=== PATIENT | male | born 1950 | race African-American/Black ===

== ENCOUNTER 2017-01-11 10:18 | Inpatient (IN) | payer MEDICAID ==
[2017-01-11] VITALS (7 sets, daily range): BP systolic 127–171; BP diastolic 50–96
[~2017-01-11] VITALS: Ht 182.9 cm; Wt 90.7 kg
[2017-01-11] MEDS ORDERED: B COMPLEX-FOLI1 EACH ORAL (10:43)
[2017-01-11] MEDS ORDERED: TRAZODONE HCL50 MG ORAL (10:43)
[2017-01-11] MEDS ORDERED: LEVETIRACETAM500 MG ORAL (10:43)
[2017-01-11] MEDS ORDERED: NEPHROVITE1 TAB ORAL (10:43)
[2017-01-11] MEDS ORDERED: BENAZEPRIL HCL40 MG ORAL (10:43)
[2017-01-11] MEDS ORDERED: SENSIPAR30 MG ORAL (10:43)
[2017-01-11] MEDS ORDERED: NAMENDA10 MG ORAL (10:43)
[2017-01-11] MEDS ORDERED: DOCUSATE SODIU100 MG ORAL (10:43)
[2017-01-11] MEDS ORDERED: AMLODIPINE BESY10 MG ORAL (10:43)
[2017-01-11] MEDS ORDERED: PANTOPRAZOLE SO40 MG ORAL (10:43)
[2017-01-11] MEDS ORDERED: HYDRALAZINE HCL50 MG ORAL (10:43)
[2017-01-11] MEDS ORDERED: ASPIR-LOW81 MG ORAL (10:43)
[2017-01-11] MEDS ORDERED: NORMODYNE200 MG ORAL (10:43)
[2017-01-11] MEDS ORDERED: DEPAKOTE ER500 MG ORAL (10:43)
[2017-01-11] MEDS ORDERED: LISINOPRIL40 MG ORAL (10:43)
[2017-01-11] MEDS ORDERED: Heparin 2000 units/Ns 1000ml IV ONE (11:15)
[2017-01-11] MEDS ORDERED: Lidocaine 1% 10mg/ml/Epi 0.005mg/ml 30ml vial INJ ONE (11:15)
[2017-01-11 11:29] LABS: BASOPHILS % (AUTO) 0.9 % (0.0-2.0); LYMPHOCYTES % (AUTO) 5.3 % (20.0-45.0); MEAN CORPUSCULAR HEMOGLOBIN 29.6 PG (27.0-31.0); MEAN CORPUSCULAR HGB CONC 32.6 G/DL (32.0-36.0); MEAN CORPUSCULAR VOLUME 91 FL (80-99); MEAN PLATELET VOLUME 6.7 FL (6.5-10.1); MONOCYTES % (AUTO) 13.8 % (1.0-10.0); PLATELET COUNT 211 K/UL (150-450); RED BLOOD COUNT 3.41 M/UL (4.70-6.10); RED CELL DISTRIBUTION WIDTH 15.2 % (11.6-14.8); WHITE BLOOD COUNT 8.4 K/UL (4.8-10.8)
[2017-01-11 11:30] LABS: APPEARANCE,URINE TURBID; KETONES,URINE NEGATIVE (NEGATIVE); LEUKOCYTE ESTERASE ,URINE 2+ (NEGATIVE); NITRITE,URINE NEGATIVE (NEGATIVE); PH,URINE 6 (4.5-8.0); PROTEIN,URINE 3+ (NEGATIVE); UROBILINOGEN,URINE 1 MG/DL (0.0-1.0)
[2017-01-11 11:37] LABS: INR 1.2 (0.9-1.1); PROTHROMBIN TIME 12.7 SEC (9.30-11.50)
[2017-01-11 11:50] LABS: BACTERIA,URINE MANY /HPF; SQUAMOUS EPITHELIAL CELL,UR FEW /LPF (NONE/OCC)
[2017-01-11] MEDS ORDERED: Lidocaine 1% Plain 30 ml INJ ONE (12:00)
[2017-01-11 12:02] LABS: ALBUMIN/GLOBULIN RATIO 0.9 (1.0-2.7); CREATININE 18.1 mg/dL (0.7-1.2); GLOMERULAR FILTRATION RATE 3.3 mL/min (>60); POTASSIUM 7.3 mEQ/L (3.4-4.9); TOTAL PROTEIN 7.1 g/dL (6.6-8.7)
[2017-01-11 12:21] LABS: TROPONIN I < 0.30 ng/mL (<=0.30)
[2017-01-11] MEDS ORDERED: Albuterol ud Inhalation HHN ONE (12:30)
[2017-01-11] MEDS ORDERED: Sodium Polystyrene Sulfonate 15gm Powder ORAL ONE ×2 (12:30→16:00)
[2017-01-11] MEDS ORDERED: cefTRIAXone 1 GM in NS 55 ML IVPB ONE (13:00)
--- NOTE | 2017-01-11 13:38 | Diagnostic Imaging Report ---
Indication: COUGH Technique: One view of the chest Comparison: 05/08/2012 Findings: There is infiltrate at the right lung base. The left lung and pleural spaces are clear. Heart size is upper limits normal. Impression: Right basilar infiltrate , likely pneumonia
[2017-01-11] MEDS ORDERED: NS 55 ML IV ONE (13:43)
--- NOTE | 2017-01-11 14:14 | Emergency Room Report ---
History of Present Illness General Chief Complaint: Altered Level of Consciousness Source: Family Member, Medical Record Present Illness HPI This patient is accompanied by his . The she has a history of end-stage renal disease and is dialysis dependent. He was admitted to [facility] and was discharged on the fifth of this month. He has not been to dialysis since being discharged. The states that this is because there was no transportation to the dialysis clinic. She states that she is concerned about him because he has had a wet harsh cough and breathing. She is also concerned that he has not been as alert as usual. There's been no fever or chills. There's been no sputum production. There has been no chest pain. There is no other complaints. Allergies: Coded Allergies: No Known Allergies (Verified , 03/31/11) Patient History Past Medical History: see triage record, DM, HTN, dementia, renal disease, dialysis Social History: Denies: alcohol use, drug use, smoking Reviewed Nursing Documentation: PMH: Agreed, PSxH: Agreed Nursing Documentation-PMH Past Medical History: No History, Except For Hx Hypertension: Yes Hx Diabetes: Yes Hx Dialysis: Yes - M,W,F Hx Neurological Problems: Yes - Dementia Hx Cerebrovascular Accident: Yes Hx Seizures: Yes Review of Systems All Other Systems: negative except mentioned in HPI Physical Exam Vital Signs Date Time Temp Pulse Resp B/P Pulse Ox O2 Delivery O2 Flow Rate FiO2 01/11/17 10:19 94 24 189/79 98 Room Air 01/11/17 11:00 97.7 01/11/17 12:51 21 Sp02 EP Interpretation: reviewed, normal General Appearance: no apparent distress, GCS 15, non-toxic Head: normocephalic, atraumatic Eyes: bilateral eye PERRL, bilateral eye normal inspection ENT: hearing grossly normal, normal pharynx, no angioedema Neck: full range of motion, supple/symm/no masses Respiratory: chest non-tender, no respiratory distress, no retraction, no accessory muscle use, rhonchi Cardiovascular #1: regular rate, rhythm, no edema Gastrointestinal: normal bowel sounds, non tender, soft, non-distended, no guarding, no rebound Rectal: deferred Musculoskeletal: non-tender Neurologic: alert, responsive Skin: normal color, no rash, warm/dry, well hydrated Medical Decision Making Diagnostic Impression: Primary Impression: Encephalopathy Additional Impressions: Uremia Hyperkalemia Dialysis patient Pneumonia UTI (urinary tract infection) ER Course This patient missed dialysis for one week of presents with a renal encephalopathy. He is uremic and hyperkalemic. He was given aggressive intervention for hyperkalemia given his EKG changes his PT was. He is given albuterol, insulin and glucose, Kayexalate. He also is admitted for emergency dialysis which will be definitive treatment for him. He has some findings on chest x-ray that could be a pneumonia. Therefore, I did give this patient broad -spectrum antibiotics. Also his urinalysis shows a urinary tract infection. Patient is admitted to the ICU step down. This patient is critically ill. This patient required complex medical decision- making, aggressive intervention, extensive laboratory workup and monitoring. Critical care time: 40 minutes. Labs Test 01/11/17 10:54 01/11/17 11:05 White Blood Count 8.4 K/UL (4.8-10.8) Red Blood Count 3.41 M/UL (4.70-6.10) Hemoglobin 10.1 G/DL (14.2-18.0) Hematocrit 31.0 % (42.0-52.0) Mean Corpuscular Volume 91 FL (80-99) Mean Corpuscular Hemoglobin 29.6 PG (27.0-31.0) Mean Corpuscular Hemoglobin Concent 32.6 G/DL (32.0-36.0) Red Cell Distribution Width 15.2 % (11.6-14.8) Platelet Count 211 K/UL (150-450) Mean Platelet Volume 6.7 FL (6.5-10.1) Neutrophils (%) (Auto) 80.0 % (45.0-75.0) Lymphocytes (%) (Auto) 5.3 % (20.0-45.0) Monocytes (%) (Auto) 13.8 % (1.0-10.0) Eosinophils (%) (Auto) 0.0 % (0.0-3.0) Basophils (%) (Auto) 0.9 % (0.0-2.0) Prothrombin Time 12.7 SEC (9.30-11.50) Prothromb Time International Ratio 1.2 (0.9-1.1) Activated Partial Thromboplast Time 33 SEC (23-33) Sodium Level 140 mEQ/L (135-145) Potassium Level 7.3 mEQ/L (3.4-4.9) Chloride Level 91 mEQ/L (98-107) Carbon Dioxide Level 15 mEQ/L (20-30) Anion Gap 34 (5-15) Blood Urea Nitrogen 145 mg/dL (7-23) Creatinine 18.1 mg/dL (0.7-1.2) Estimat Glomerular Filtration Rate 3.3 mL/min (>60) Glucose Level 74 mg/dL (74-106) Calcium Level 9.0 mg/dL (8.6-10.2) Total Bilirubin 0.9 mg/dL (0.0-1.2) Aspartate Amino Transf (AST/SGOT) 26 U/L (5-40) Alanine Aminotransferase (ALT/SGPT) 7 U/L (3-41) Alkaline Phosphatase 76 U/L (40-129) Ammonia 80 umol/L (16-60) Troponin I < 0.30 ng/mL (<=0.30) Total Protein 7.1 g/dL (6.6-8.7) Albumin 3.5 g/dL (3.5-5.2) Globulin 3.6 g/dL Albumin/Globulin Ratio 0.9 (1.0-2.7) Urine Color Yellow Urine Appearance Turbid Urine pH 6 (4.5-8.0) Urine Specific [place] 1.015 (1.005-1.035) Urine Protein 3+ (NEGATIVE) Urine Glucose (UA) Negative (NEGATIVE) Urine Ketones Negative (NEGATIVE) Urine Occult Blood 4+ (NEGATIVE) Urine Nitrite Negative (NEGATIVE) Urine Bilirubin Negative (NEGATIVE) Urine Urobilinogen 1 MG/DL (0.0-1.0) Urine Leukocyte Esterase 2+ (NEGATIVE) Urine RBC 2-4 /HPF (0 - 0) Urine WBC 10-15 /HPF (0 - 0) Urine Squamous Epithelial Cells Few /LPF (NONE/OCC) Urine Bacteria Many /HPF (NONE) EKG Diagnostic Results Rate: normal Rhythm: NSR Other Impression Peaked T-waves. RBBB Rhythm Strip Diag. Results EP Interpretation: yes Rate: 80's Rhythm: NSR, no PVC's, no ectopy Chest X-Ray Diagnostic Results EP Interpretation: Yes Findings: no effusion, no pneumothorax Number of Views: 1 Other Impression R. LL opacity. Last Vital Signs Date Time Temp Pulse Resp B/P Pulse Ox O2 Delivery O2 Flow Rate FiO2 01/11/17 14:03 97.8 80 21 142/96 97 Room Air 01/11/17 12:59 21 Disposition: ADMITTED INPATIENT Condition: Critical Referrals: [facility],REFERRING (PCP) RAFFAELE FRAIRE D.O. Jan 11, 2017 14:14
[2017-01-11] MEDS ORDERED: DuoNeb 0.5-3(2.5)mg/3ml neb HHN PRN (14:45)
[2017-01-11] MEDS ORDERED: Morphine Sulfate 2mg/ml Inj IVP PRN (14:45)
[2017-01-11] MEDS ORDERED: Calcium Gluconate 1gm/10ml vial IVP ONE (14:45)
[2017-01-11] MEDS ORDERED: Mylanta II UD 30ml ORAL PRN (14:45)
[2017-01-11] MEDS ORDERED: Calcium Gluconate 10% 1 GM in NS 110 ML IVP ONE (16:00)
[2017-01-11] MEDS ORDERED: Miralax 17gm pkt ORAL PRN (21:00)
[2017-01-11] MEDS: Depakote ER 500mg tab ORAL SCH (21:00)
[2017-01-11] MEDS: TraZODone 50mg tab ORAL SCH (21:00)
[2017-01-11] MEDS: Labetalol 200mg tab ORAL SCH (21:00)
[2017-01-11] MEDS ORDERED: Zolpidem 5mg tab ORAL PRN (21:00)
[2017-01-11] MEDS: Heparin 5000 units/ml inj SUBQ SCH (21:50)
--- NOTE | 2017-01-11 22:37 | Consultation ---
DATE OF CONSULTATION: 01/11/2017 NEPHROLOGY CONSULTATION CONSULTING PHYSICIAN: Tyler Soares M.D. REFERRING PHYSICIAN: Cortney Werner M.D. REASON FOR CONSULTATION: End-stage renal disease, requiring hemodialysis. HISTORY OF PRESENT ILLNESS: This is an elderly male, who was admitted today with change in mental status. Dr. Denny was asked to see in Nephrology consultation because the patient has been on dialysis. His potassium was 7.3. I called the dialysis nurse urgently and the patient is about to be started on dialysis now. The patient is a very poor historian. History is obtained from the chart. PAST MEDICAL HISTORY: Includes a history of hypertension and diabetes and also history of dementia, CVA and seizures. MEDICATIONS: Reviewed. SOCIAL HISTORY: Unobtainable. REVIEW OF SYSTEMS: Unobtainable. PHYSICAL EXAMINATION: GENERAL: The patient is an elderly male, in no acute distress. VITAL SIGNS: Blood pressure 142/96, pulse 80, temperature 97.8 degrees, and respiratory rate 21. HEENT: Pale conjunctivae. Anicteric sclerae. NECK: Supple. LUNGS: Bilateral rhonchi. HEART: S1 and S2 without murmurs or rubs. ABDOMEN: Soft and nontender. EXTREMITIES: No cyanosis or edema. LABORATORY FINDINGS: The chemistry panel shows a serum sodium 140, potassium 4.3, chloride 91, CO2 15, BUN 145, and creatinine 2.1. BS is 80. UA shows 10 to 15 WBCs per high-power field. CBC shows a WBC of 8.4, hematocrit 31, hemoglobin 10.1, and platelets 200,000. ASSESSMENT: This is an elderly male, who was admitted with change in mental status. The patient has severe hyperkalemia in the presence of end-stage renal disease. PLAN: The patient will be dialyzed with 0 potassium bath. Case was discussed with dialysis nurse. The laboratories will be followed and the patient will be seen by Dr. Denny tomorrow. Thank you very much for this consultation. Tyler Soares M.D. DR: SINDY JOB#: [id number] CC: JAMES
--- NOTE | 2017-01-11 22:37 | Consultation ---
Consult Note Consult Note Renal consult dictated # [id number] GELACIO MENDIETA Jan 11, 2017 22:37
[2017-01-11] MEDS: HydrALAZINE 50mg tab ORAL SCH (23:15)
[2017-01-12] VITALS (7 sets, daily range): BP systolic 119–161; BP diastolic 51–76
[2017-01-12 05:06] LABS: BASOPHILS % (AUTO) 1.4 % (0.0-2.0); LYMPHOCYTES % (AUTO) 7.5 % (20.0-45.0); MEAN CORPUSCULAR HGB CONC 31.3 G/DL (32.0-36.0); MEAN CORPUSCULAR VOLUME 93 FL (80-99); MEAN PLATELET VOLUME 7.2 FL (6.5-10.1); MONOCYTES % (AUTO) 16.7 % (1.0-10.0); NEUTROPHILS % (AUTO) 74.5 % (45.0-75.0); PLATELET COUNT 213 K/UL (150-450); RED BLOOD COUNT 3.37 M/UL (4.70-6.10); RED CELL DISTRIBUTION WIDTH 14.9 % (11.6-14.8); WHITE BLOOD COUNT 11.2 K/UL (4.8-10.8)
[2017-01-12 05:28] LABS: ALBUMIN/GLOBULIN RATIO 0.7 (1.0-2.7); CALCIUM 9.4 mg/dL (8.6-10.2); CREATININE 11.7 mg/dL (0.7-1.2); GLOMERULAR FILTRATION RATE 5.3 mL/min (>60); POTASSIUM 4.4 mEQ/L (3.4-4.9); TOTAL PROTEIN 7.7 g/dL (6.6-8.7)
[2017-01-12] MEDS: HydrALAZINE 50mg tab ORAL SCH ×3 (05:34→22:44)
[2017-01-12 05:39] LABS: THYROID STIMULATING HORMONE 1.5 uIU/mL (0.300-4.500)
[2017-01-12 05:55] LABS: HEMOGLOBIN A1C 4.5 % (< 6.0)
[2017-01-12] MEDS ORDERED: Sensipar 30mg Tab ORAL SCH (09:00)
[2017-01-12] MEDS ORDERED: Aspirin EC 81mg tab ORAL SCH (09:00)
[2017-01-12] MEDS: Depakote ER 500mg tab ORAL SCH ×2 (09:00→21:17)
[2017-01-12] MEDS: levETIRAcetam 500mg/5ml Liquid NG SCH ×2 (10:20→21:15)
[2017-01-12] MEDS: Aspirin Baby 81mg NG SCH (10:20)
[2017-01-12] MEDS: Heparin 5000 units/ml inj SUBQ SCH ×2 (10:22→21:18)
--- NOTE | 2017-01-12 10:27 | General Progress Note ---
Assessment/Plan Status: stable Status Narrative dialysed 01/11 Assessment/Plan status: ESRD next HD 08/15 HyperKalemia- resolved after HD HTN DM Dementia CVA Sz disorder Plan; HD in am- Subjective ROS Limited/Unobtainable: No Constitutional: Reports: malaise Allergies: Coded Allergies: No Known Allergies (Verified , 03/31/11) Objective Last 24 Hour Vital Signs Date Time Temp Pulse Resp B/P Pulse Ox O2 Delivery O2 Flow Rate FiO2 01/12/17 08:17 91 18 Room Air 96 01/12/17 08:00 97.1 78 20 145/58 98 Room Air 01/12/17 05:34 136/57 01/12/17 04:00 77 01/12/17 04:00 97.4 77 20 150/56 98 01/12/17 00:00 97.7 87 20 161/76 95 Room Air 01/12/17 00:00 83 01/11/17 23:15 162/51 01/11/17 21:00 82 140/51 01/11/17 20:15 Room Air 01/11/17 20:00 98.4 84 20 127/70 96 01/11/17 19:37 86 18 Room Air 95 01/11/17 17:10 Room Air 01/11/17 16:00 74 01/11/17 15:27 77 25 150/59 99 Room Air 01/11/17 15:08 98.2 81 21 146/92 98 Room Air 21 01/11/17 14:03 97.8 80 21 142/96 97 Room Air 01/11/17 13:10 97.7 84 22 162/50 97 Room Air 01/11/17 12:59 133 18 98 21 01/11/17 12:51 21 01/11/17 12:51 129 16 Room Air 97 01/11/17 12:51 129 16 97 Room Air 21 01/11/17 12:30 97.7 162 21 162/70 98 Room Air 01/11/17 11:00 97.7 86 26 170/83 97 Room Air 01/11/17 10:36 87 24 171/73 97 Room Air Intake and Output 01/11/17 01/12/17 19:00 07:00 Intake Total 60 ml Output Total 80 ml 3300 ml Balance -80 ml -3240 ml Intake Other 60 ml Output Urine Total 80 ml Hemodialysis UF 3300 ml Laboratory Tests 01/11/17 10:54: White Blood Count 8.4, Red Blood Count 3.41L, Hemoglobin 10.1L, Hematocrit 31.0L , Mean Corpuscular Volume 91, Mean Corpuscular Hemoglobin 29.6, Mean Corpuscular Hemoglobin Concent 32.6, Red Cell Distribution Width 15.2H, Platelet Count 211, Mean Platelet Volume 6.7, Neutrophils (%) (Auto) 80.0H, Lymphocytes (%) (Auto) 5.3L, Monocytes (%) (Auto) 13.8H, Eosinophils (%) (Auto) 0.0, Basophils (%) (Auto) 0.9, Prothrombin Time 12.7H, Prothromb Time International Ratio 1.2H, Activated Partial Thromboplast Time 33, Sodium Level 140, Potassium Level 7.3*H, Chloride Level 91L, Carbon Dioxide Level 15L, Anion Gap 34H, Blood Urea Nitrogen 145H, Creatinine 18.1H, Estimat Glomerular Filtration Rate 3.3, Glucose Level 74, Calcium Level 9.0, Total Bilirubin 0.9, Aspartate Amino Transf (AST/SGOT) 26, Alanine Aminotransferase (ALT/SGPT) 7, Alkaline Phosphatase 76, Ammonia 80H, Troponin I < 0.30, Total Protein 7.1, Albumin 3.5, Globulin 3.6, Albumin/Globulin Ratio 0.9L 01/11/17 11:05: Urine Color Yellow, Urine Appearance Turbid, Urine pH 6, Urine Specific [place] 1.015, Urine Protein 3+H, Urine Glucose (UA) Negative, Urine Ketones Negative, Urine Occult Blood 4+H, Urine Nitrite Negative, Urine Bilirubin Negative, Urine Urobilinogen 1H, Urine Leukocyte Esterase 2+H, Urine RBC 2-4H, Urine WBC 10-15H , Urine Squamous Epithelial Cells Few, Urine Bacteria ManyH 01/12/17 03:35: White Blood Count 11.2H, Red Blood Count 3.37L, Hemoglobin 9.8L, Hematocrit 31.3L, Mean Corpuscular Volume 93, Mean Corpuscular Hemoglobin 29.0, Mean Corpuscular Hemoglobin Concent 31.3L, Red Cell Distribution Width 14.9H, Platelet Count 213, Mean Platelet Volume 7.2, Neutrophils (%) (Auto) 74.5, Lymphocytes (%) (Auto) 7.5L, Monocytes (%) (Auto) 16.7H, Eosinophils (%) (Auto) 0.0, Basophils (%) (Auto) 1.4, Sodium Level 143, Potassium Level 4.4, Chloride Level 92L, Carbon Dioxide Level 23, Anion Gap 28H, Blood Urea Nitrogen 99#H, Creatinine 11.7H, Estimat Glomerular Filtration Rate 5.3, Glucose Level 116H, Calcium Level 9.4, Total Bilirubin 0.7, Aspartate Amino Transf (AST/SGOT) 30, Alanine Aminotransferase (ALT/SGPT) 9, Alkaline Phosphatase 102, Total Protein 7.7, Albumin 3.3L, Globulin 4.4, Albumin/Globulin Ratio 0.7L, Hemoglobin A1c 4.5 , Thyroid Stimulating Hormone (TSH) 1.500 Height (Feet): 6 Height (Inches): 0.00 Weight (Pounds): 200 General Appearance: no apparent distress Cardiovascular: normal rate Respiratory/Chest: lungs clear Abdomen: soft SHILOH CABRAL Jan 12, 2017 10:27
--- NOTE | 2017-01-12 10:41 | Diagnostic Imaging Report ---
Indication: Post nasogastric tube placement Technique: Supine view of the abdomen Comparison: none Findings: There is a nasogastric tube in place, tip of which projects at level of the gastric antrum/body junction, in satisfactory position. Small bowel loops are gas-filled, somewhat prominent. Surgical hardware is seen in the right groin region. Impression: Satisfactory position of nasogastric tube Other findings as described This agrees with the preliminary interpretation provided overnight by Dr. Solis
[2017-01-12] MEDS: Labetalol 200mg tab ORAL SCH ×2 (11:11→21:00)
--- NOTE | 2017-01-12 11:34 | History and Physical ---
History of Present Illness General Date patient seen: Jan 11, 2017 Reason for Hospitalization: Altered Level of Consciousness Present Illness HPI 66 year old male with history of end-stage renal disease and is dialysis dependent. He has not been to dialysis for a few weeks since there was no transportation to the dialysis clinic. He had a wet harsh cough and breathing. He has not been as alert as usual. He is admitted to [facility] because of K of > 7. Pt is awake, seems comfortable but doesn't answer to questions. Allergies: Coded Allergies: No Known Allergies (Verified , 03/31/11) Medication History Scheduled Amlodipine Besylate* (Amlodipine Besylate*), 10 MG ORAL DAILY, (Reported) Aspirin* (Aspir-Low*), 81 MG ORAL DAILY, (Reported) Benazepril Hcl* (Benazepril Hcl*), 40 MG ORAL DAILY, (Reported) Cinacalcet* (Sensipar*), 30 MG ORAL DAILY, (Reported) Cyanocobalamin/Fa/Pyridoxine (B Complex-Folic Acid Tablet), 1 TAB ORAL DAILY, ( Reported) Divalproex Sodium* (Depakote Er*), 500 MG ORAL EVERY 12 HOURS, (Reported) Docusate Sodium* (Docusate Sodium*), 100 MG ORAL THREE TIMES A DAY, (Reported) Hydralazine Hcl* (Hydralazine Hcl*), 50 MG ORAL EVERY 8 HOURS, (Reported) Labetalol HCl (Labetalol HCl), 200 MG ORAL EVERY 12 HOURS, (Reported) Levetiracetam* (Levetiracetam*), 500 MG ORAL TWICE A DAY, (Reported) Lisinopril* (Lisinopril*), 40 MG ORAL DAILY, (Reported) Memantine Hcl* (Namenda*), 10 MG ORAL DAILY, (Reported) Pantoprazole* (Pantoprazole*), 40 MG ORAL DAILY, (Reported) Trazodone Hcl* (Desyrel*), 50 MG ORAL BEDTIME, (Reported) Vitamin B Cmplx/Vit C/Folic AC (Nephro-Velma Tablet), 1 TAB ORAL DAILY, (Reported ) Patient History Healthcare decision maker Resuscitation status Full Code Advanced Directive on File Past Medical/Surgical History Past Medical/Surgical History: (1) HTN (hypertension) (2) Diabetes (3) Dialysis patient Review of Systems All Other Systems: negative except mentioned in HPI Physical Exam General Appearance: WD/WN, no apparent distress Lines, tubes and drains: peripheral, central line HEENT: normocephalic, atraumatic Neck: non-tender, normal alignment Respiratory/Chest: chest wall non-tender, lungs clear Breasts: no masses Cardiovascular/Chest: normal rate Abdomen: normal bowel sounds Genitourinary/Rectal: normal genital exam Last 24 Hour Vital Signs Date Time Temp Pulse Resp B/P Pulse Ox O2 Delivery O2 Flow Rate FiO2 01/12/17 11:11 91 145/58 01/12/17 10:20 91 145/58 01/12/17 08:17 91 18 Room Air 96 01/12/17 08:00 97.1 78 20 145/58 98 Room Air 01/12/17 05:34 136/57 01/12/17 04:00 77 01/12/17 04:00 97.4 77 20 150/56 98 01/12/17 00:00 97.7 87 20 161/76 95 Room Air 01/12/17 00:00 83 01/11/17 23:15 162/51 01/11/17 21:00 82 140/51 01/11/17 20:15 Room Air 01/11/17 20:00 98.4 84 20 127/70 96 01/11/17 19:37 86 18 Room Air 95 01/11/17 17:10 Room Air 01/11/17 16:00 74 01/11/17 15:27 77 25 150/59 99 Room Air 01/11/17 15:08 98.2 81 21 146/92 98 Room Air 21 01/11/17 14:03 97.8 80 21 142/96 97 Room Air 01/11/17 13:10 97.7 84 22 162/50 97 Room Air 01/11/17 12:59 133 18 98 21 01/11/17 12:51 21 01/11/17 12:51 129 16 Room Air 97 01/11/17 12:51 129 16 97 Room Air 21 01/11/17 12:30 97.7 162 21 162/70 98 Room Air Intake and Output 01/11/17 01/12/17 18:59 06:59 Intake Total 60 ml Output Total 80 ml 3300 ml Balance -80 ml -3240 ml Intake Other 60 ml Output Urine Total 80 ml Hemodialysis UF 3300 ml Laboratory Tests Test 01/12/17 03:35 01/12/17 05:28 White Blood Count 11.2 K/UL (4.8-10.8) H Red Blood Count 3.37 M/UL (4.70-6.10) L Hemoglobin 9.8 G/DL (14.2-18.0) L Hematocrit 31.3 % (42.0-52.0) L Mean Corpuscular Volume 93 FL (80-99) Mean Corpuscular Hemoglobin 29.0 PG (27.0-31.0) Mean Corpuscular Hemoglobin Concent 31.3 G/DL (32.0-36.0) L Red Cell Distribution Width 14.9 % (11.6-14.8) H Platelet Count 213 K/UL (150-450) Mean Platelet Volume 7.2 FL (6.5-10.1) Neutrophils (%) (Auto) 74.5 % (45.0-75.0) Lymphocytes (%) (Auto) 7.5 % (20.0-45.0) L Monocytes (%) (Auto) 16.7 % (1.0-10.0) H Eosinophils (%) (Auto) 0.0 % (0.0-3.0) Basophils (%) (Auto) 1.4 % (0.0-2.0) Sodium Level 143 mEQ/L (135-145) Potassium Level 4.4 mEQ/L (3.4-4.9) Chloride Level 92 mEQ/L (98-107) L Carbon Dioxide Level 23 mEQ/L (20-30) Anion Gap 28 (5-15) H Blood Urea Nitrogen 99 mg/dL (7-23) #H Creatinine 11.7 mg/dL (0.7-1.2) H Estimat Glomerular Filtration Rate 5.3 mL/min (>60) Glucose Level 116 mg/dL (74-106) H Hemoglobin A1c 4.5 % (< 6.0) Calcium Level 9.4 mg/dL (8.6-10.2) Total Bilirubin 0.7 mg/dL (0.0-1.2) Aspartate Amino Transf (AST/SGOT) 30 U/L (5-40) Alanine Aminotransferase (ALT/SGPT) 9 U/L (3-41) Alkaline Phosphatase 102 U/L (40-129) Total Protein 7.7 g/dL (6.6-8.7) Albumin 3.3 g/dL (3.5-5.2) L Globulin 4.4 g/dL Albumin/Globulin Ratio 0.7 (1.0-2.7) L Thyroid Stimulating Hormone (TSH) 1.500 uIU/mL (0.300-4.500) Phosphorus Level 10.0 mg/dL (2.5-4.8) H Height (Feet): 6 Height (Inches): 0.00 Weight (Pounds): 200 Medications Current Medications Medications (Trade) Dose Ordered Sig/Tracy Route PRN Reason Start Time Stop Time Status Last Admin Dose Admin Acetaminophen (Tylenol) 650 mg Q4H PRN ORAL T>100.5 01/11/17 14:45 02/10/17 14:44 Albuterol/ Ipratropium (DuoNeb 0.5-3(2.5)mg/3ml) 3 ml Q6H PRN HHN Shortness of Breath 01/11/17 14:45 01/16/17 14:44 Amlodipine Besylate (Norvasc) 10 mg DAILY ORAL 01/12/17 09:00 02/11/17 08:59 01/12/17 10:20 Aspirin (ASA) 81 mg DAILY NG 01/12/17 09:00 02/11/17 08:59 01/12/17 10:20 Clonidine HCl (Catapres) 0.1 mg Q4H PRN ORAL SBP>160 01/11/17 14:45 02/10/17 14:44 Divalproex Sodium (Depakote ER) 500 mg EVERY 12 HOURS ORAL 01/11/17 21:00 02/10/17 20:59 Heparin Sodium (Porcine) (Heparin 5000 units/ml) 5,000 units EVERY 12 HOURS SUBQ 01/11/17 21:00 02/10/17 20:59 01/12/17 10:22 Hydralazine HCl (Apresoline) 50 mg EVERY 8 HOURS ORAL 01/11/17 22:00 02/10/17 21:59 01/12/17 05:34 Labetalol HCl (Normodyne) 200 mg EVERY 12 HOURS ORAL 01/11/17 21:00 02/10/17 20:59 01/12/17 11:11 Levetiracetam (Keppra) 500 mg Q12HR NG 01/12/17 09:00 02/11/17 08:59 01/12/17 10:20 Morphine Sulfate (Morphine Sulfate) 1 mg Q4H PRN IVP PAIN 4-10 01/11/17 14:45 01/18/17 14:44 Ondansetron HCl (Zofran) 4 mg Q6H PRN IVP Nausea & Vomiting 01/11/17 14:45 02/10/17 14:44 Polyethylene Glycol (Miralax) 17 gm HSPRN PRN ORAL Constipation 01/11/17 21:00 02/10/17 20:59 Trazodone HCl (Desyrel) 50 mg BEDTIME ORAL 01/11/17 21:00 02/10/17 20:59 Zolpidem Tartrate (Ambien) 5 mg HSPRN PRN ORAL Insomnia 01/11/17 21:00 02/10/17 20:59 Assessment/Plan Problem List: (1) Acute encephalopathy ICD Codes: G93.40 - Encephalopathy, unspecified SNOMED: 6024553 (2) ESRF (end stage renal failure) ICD Codes: N18.6 - End stage renal disease SNOMED: 91299860 (3) HTN (hypertension) ICD Codes: I10 - Essential (primary) hypertension SNOMED: 79293902 (4) Hyperkalemia ICD Codes: E87.5 - Hyperkalemia SNOMED: 44884778, 649519514 (5) Diabetes ICD Codes: E11.9 - Type 2 diabetes mellitus without complications SNOMED: 24900671 Assessment/Plan HD, social service consult check electrolytes pt/ot MITUL NAVARRO Jan 12, 2017 11:34
--- NOTE | 2017-01-12 11:35 | Pulmonology Progress Note ---
Assessment/Plan Problems: (1) Acute encephalopathy (2) ESRF (end stage renal failure) (3) HTN (hypertension) (4) Hyperkalemia (5) Diabetes Assessment/Plan s/p DH pt/ot swallow study med/surg social service Subjective Interval Events: awake, comfortable, not communicating Allergies: Coded Allergies: No Known Allergies (Verified , 03/31/11) Objective Last 24 Hour Vital Signs Date Time Temp Pulse Resp B/P Pulse Ox O2 Delivery O2 Flow Rate FiO2 01/12/17 11:11 91 145/58 01/12/17 10:20 91 145/58 01/12/17 08:17 91 18 Room Air 96 01/12/17 08:00 97.1 78 20 145/58 98 Room Air 01/12/17 05:34 136/57 01/12/17 04:00 77 01/12/17 04:00 97.4 77 20 150/56 98 01/12/17 00:00 97.7 87 20 161/76 95 Room Air 01/12/17 00:00 83 01/11/17 23:15 162/51 01/11/17 21:00 82 140/51 01/11/17 20:15 Room Air 01/11/17 20:00 98.4 84 20 127/70 96 01/11/17 19:37 86 18 Room Air 95 01/11/17 17:10 Room Air 01/11/17 16:00 74 01/11/17 15:27 77 25 150/59 99 Room Air 01/11/17 15:08 98.2 81 21 146/92 98 Room Air 21 01/11/17 14:03 97.8 80 21 142/96 97 Room Air 01/11/17 13:10 97.7 84 22 162/50 97 Room Air 01/11/17 12:59 133 18 98 21 01/11/17 12:51 21 01/11/17 12:51 129 16 Room Air 97 01/11/17 12:51 129 16 97 Room Air 21 01/11/17 12:30 97.7 162 21 162/70 98 Room Air Intake and Output 01/11/17 01/12/17 18:59 06:59 Intake Total 60 ml Output Total 80 ml 3300 ml Balance -80 ml -3240 ml Intake Other 60 ml Output Urine Total 80 ml Hemodialysis UF 3300 ml General Appearance: WD/WN HEENT: normocephalic, atraumatic Respiratory/Chest: chest wall non-tender, normal breath sounds Cardiovascular: normal peripheral pulses, normal rate Abdomen: normal bowel sounds, soft, non tender Genitourinary: normal external genitalia Extremities: no cyanosis Skin: no rash, no lesions Microbiology Date/Time Source Procedure Growth Status 01/11/17 11:05 Urine,Clean Catch Urine Culture - Preliminary Gram Negative Bacillus 1 Resulted Laboratory Tests 01/12/17 03:35: White Blood Count 11.2H, Red Blood Count 3.37L, Hemoglobin 9.8L, Hematocrit 31.3L, Mean Corpuscular Volume 93, Mean Corpuscular Hemoglobin 29.0, Mean Corpuscular Hemoglobin Concent 31.3L, Red Cell Distribution Width 14.9H, Platelet Count 213, Mean Platelet Volume 7.2, Neutrophils (%) (Auto) 74.5, Lymphocytes (%) (Auto) 7.5L, Monocytes (%) (Auto) 16.7H, Eosinophils (%) (Auto) 0.0, Basophils (%) (Auto) 1.4, Sodium Level 143, Potassium Level 4.4, Chloride Level 92L, Carbon Dioxide Level 23, Anion Gap 28H, Blood Urea Nitrogen 99#H, Creatinine 11.7H, Estimat Glomerular Filtration Rate 5.3, Glucose Level 116H, Hemoglobin A1c 4.5, Calcium Level 9.4, Total Bilirubin 0.7, Aspartate Amino Transf (AST/SGOT) 30, Alanine Aminotransferase (ALT/SGPT) 9, Alkaline Phosphatase 102, Total Protein 7.7, Albumin 3.3L, Globulin 4.4, Albumin/ Globulin Ratio 0.7L, Thyroid Stimulating Hormone (TSH) 1.500 01/12/17 05:28: Phosphorus Level 10.0H Current Medications Medications (Trade) Dose Ordered Sig/Tracy Route PRN Reason Start Time Stop Time Status Last Admin Dose Admin Acetaminophen (Tylenol) 650 mg Q4H PRN ORAL T>100.5 01/11/17 14:45 02/10/17 14:44 Albuterol/ Ipratropium (DuoNeb 0.5-3(2.5)mg/3ml) 3 ml Q6H PRN HHN Shortness of Breath 01/11/17 14:45 01/16/17 14:44 Amlodipine Besylate (Norvasc) 10 mg DAILY ORAL 01/12/17 09:00 02/11/17 08:59 01/12/17 10:20 Aspirin (ASA) 81 mg DAILY NG 01/12/17 09:00 02/11/17 08:59 01/12/17 10:20 Clonidine HCl (Catapres) 0.1 mg Q4H PRN ORAL SBP>160 01/11/17 14:45 02/10/17 14:44 Divalproex Sodium (Depakote ER) 500 mg EVERY 12 HOURS ORAL 01/11/17 21:00 02/10/17 20:59 Heparin Sodium (Porcine) (Heparin 5000 units/ml) 5,000 units EVERY 12 HOURS SUBQ 01/11/17 21:00 02/10/17 20:59 01/12/17 10:22 Hydralazine HCl (Apresoline) 50 mg EVERY 8 HOURS ORAL 01/11/17 22:00 02/10/17 21:59 01/12/17 05:34 Labetalol HCl (Normodyne) 200 mg EVERY 12 HOURS ORAL 01/11/17 21:00 02/10/17 20:59 01/12/17 11:11 Levetiracetam (Keppra) 500 mg Q12HR NG 01/12/17 09:00 02/11/17 08:59 01/12/17 10:20 Morphine Sulfate (Morphine Sulfate) 1 mg Q4H PRN IVP PAIN 4-10 01/11/17 14:45 01/18/17 14:44 Ondansetron HCl (Zofran) 4 mg Q6H PRN IVP Nausea & Vomiting 01/11/17 14:45 02/10/17 14:44 Polyethylene Glycol (Miralax) 17 gm HSPRN PRN ORAL Constipation 01/11/17 21:00 02/10/17 20:59 Trazodone HCl (Desyrel) 50 mg BEDTIME ORAL 01/11/17 21:00 02/10/17 20:59 Zolpidem Tartrate (Ambien) 5 mg HSPRN PRN ORAL Insomnia 01/11/17 21:00 02/10/17 20:59 MITUL NAVARRO Jan 12, 2017 11:35
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
--- NOTE | 2017-01-12 15:38 | Cardiology Report ---
APPROVED REPORT EKG Measurement Heart [id number] Normal sinus rhythm Left axis deviation Right bundle branch block Minimal voltage criteria for LVH, may be normal variant Inferior infarct, age undetermined Anterolateral infarct, age undetermined Abnormal ECG
[2017-01-12] MEDS ORDERED: Tubing IV Secondary IV ONE (16:15)
[2017-01-12] MEDS ORDERED: NS 275ml ONE (16:15)
[2017-01-12] MEDS ORDERED: Sterile Water Irrig 1000ml IRRIG ONE (16:15)
[2017-01-12] MEDS: Vitamin A&D Oint 2oz Tube TOPIC SCH (21:15)
[2017-01-12] MEDS: TraZODone 50mg tab ORAL SCH (21:16)
[2017-01-13 04:00] VITALS: BP 128/64
[2017-01-13 05:01] LABS: BASOPHILS % (AUTO) 1.2 % (0.0-2.0); EOSINOPHILS % (AUTO) 0.4 % (0.0-3.0); LYMPHOCYTES % (AUTO) 9.4 % (20.0-45.0); MEAN CORPUSCULAR HEMOGLOBIN 29.9 PG (27.0-31.0); MEAN CORPUSCULAR VOLUME 93 FL (80-99); MEAN PLATELET VOLUME 7.1 FL (6.5-10.1); MONOCYTES % (AUTO) 17.9 % (1.0-10.0); NEUTROPHILS % (AUTO) 71.1 % (45.0-75.0); PLATELET COUNT 200 K/UL (150-450); RED BLOOD COUNT 2.84 M/UL (4.70-6.10); RED CELL DISTRIBUTION WIDTH 15.2 % (11.6-14.8); WHITE BLOOD COUNT 12.5 K/UL (4.8-10.8)
[2017-01-13 05:16] LABS: CHOLESTEROL 139 mg/dL (< 200); CHOLESTEROL/HDL RATIO 4.8 (3.3-4.4); CRP QUANT 21.7 mg/dL (< 0.5); LDL CHOLESTEROL (CALC.) 64 mg/dL (60-99); MAGNESIUM 2.3 mg/dL (1.7-2.5); PHOSPHORUS 11.4 mg/dL (2.5-4.8); URIC ACID 8.2 mg/dL (3.0-7.5)
[2017-01-13 05:20] LABS: HEMOLYSIS 47; IRON 113 ug/dL (59-158); TOTAL IRON BINDING CAPACITY 194 ug/dL (250-400)
[2017-01-13 05:29] LABS: HEMOGLOBIN A1C 4.4 % (< 6.0)
[2017-01-13 05:30] LABS: FERRITIN 859 ng/mL (10-230)
[2017-01-13] MEDS: HydrALAZINE 50mg tab ORAL SCH ×3 (06:06→21:04)
[2017-01-13 08:00] VITALS: BP 135/66
[2017-01-13] MEDS: Depakote ER 500mg tab ORAL SCH (09:04)
[2017-01-13] MEDS: Labetalol 200mg tab ORAL SCH ×2 (09:04→21:05)
[2017-01-13] MEDS: Aspirin Baby 81mg NG SCH (09:04)
[2017-01-13] MEDS: Vitamin A&D Oint 2oz Tube TOPIC SCH ×2 (09:05→21:05)
[2017-01-13] MEDS: Heparin 5000 units/ml inj SUBQ SCH ×2 (09:05→21:06)
[2017-01-13] MEDS: levETIRAcetam 500mg/5ml Liquid NG SCH ×2 (09:05→21:03)
--- NOTE | 2017-01-13 10:48 | Pulmonology Progress Note ---
Assessment/Plan Problems: (1) Acute encephalopathy (2) ESRF (end stage renal failure) (3) HTN (hypertension) (4) Hyperkalemia (5) Diabetes Assessment/Plan failed swallow study s/p DH pt/ot swallow study, noted med/surg social service Dr. lundberg called for possible Gtube placement Subjective ROS Limited/Unobtainable: No Interval Events: awake, comfortable Allergies: Coded Allergies: No Known Allergies (Verified , 03/31/11) Objective Last 24 Hour Vital Signs Date Time Temp Pulse Resp B/P Pulse Ox O2 Delivery O2 Flow Rate FiO2 01/13/17 09:04 70 135/66 01/13/17 09:04 70 135/66 01/13/17 08:00 70 01/13/17 08:00 97.7 70 20 135/66 100 Nasal Cannula 2.0 01/13/17 07:20 71 18 Nasal Cannula 3.0 32 01/13/17 07:18 Nasal Cannula 3.0 32 01/13/17 07:18 99 Nasal Cannula 3.0 32 01/13/17 06:06 130/66 01/13/17 06:00 72 01/13/17 04:00 97.2 72 21 128/64 99 Room Air 72 01/13/17 00:00 74 01/12/17 22:45 75 124/66 01/12/17 22:44 124/66 01/12/17 21:00 72 119/62 01/12/17 20:02 Nasal Cannula 3.0 32 01/12/17 20:00 85 01/12/17 20:00 97.9 81 20 119/65 96 Room Air 81 01/12/17 19:40 91 Nasal Cannula 3.0 32 01/12/17 19:40 90 18 Nasal Cannula 3.0 01/12/17 16:00 85 01/12/17 16:00 98.8 84 20 120/51 98 Room Air 01/12/17 14:56 128/57 01/12/17 12:00 97.4 74 21 128/57 98 Room Air 01/12/17 12:00 78 01/12/17 11:11 91 145/58 Intake and Output 01/12/17 01/13/17 19:00 07:00 Output Total 100 ml 1900 ml Balance -100 ml -1900 ml Output Urine Total 100 ml 1900 ml # Bowel Movements 2 General Appearance: WD/WN HEENT: normocephalic, atraumatic Respiratory/Chest: chest wall non-tender, lungs clear Cardiovascular: normal peripheral pulses, normal rate Abdomen: normal bowel sounds, soft, non tender Genitourinary: normal external genitalia Extremities: no cyanosis Neurologic/Psychiatric: chef de froid II-XII grossly normal, no motor/sensory deficits Microbiology Date/Time Source Procedure Growth Status 01/11/17 12:50 Nasal Nares MRSA Culture - Final NO METHICILLIN RESISTANT STAPH AUREUS... Complete 01/11/17 11:05 Urine,Clean Catch Urine Culture - Final Escherichia Coli Complete 01/11/17 12:50 Rectum VRE Culture - Final NO VANCOMYCIN RESISTANT ENTEROCOCCUS ... Complete Laboratory Tests 01/13/17 03:10: White Blood Count 12.5H, Red Blood Count 2.84L, Hemoglobin 8.5L, Hematocrit 26.5L, Mean Corpuscular Volume 93, Mean Corpuscular Hemoglobin 29.9, Mean Corpuscular Hemoglobin Concent 32.0, Red Cell Distribution Width 15.2H, Platelet Count 200, Mean Platelet Volume 7.1, Neutrophils (%) (Auto) 71.1, Lymphocytes (%) (Auto) 9.4L, Monocytes (%) (Auto) 17.9H, Eosinophils (%) (Auto) 0.4, Basophils (%) (Auto) 1.2, Hemoglobin A1c 4.4, Uric Acid 8.2H, Phosphorus Level 11.4H, Magnesium Level 2.3, Iron Level 113, Total Iron Binding Capacity 194L, Percent Iron Saturation 58H, Unsaturated Iron Binding 81L, Ferritin 859H, Gamma Glutamyl Transpeptidase 65H, Total Creatine Kinase 498H, C-Reactive Protein, Quantitative 21.7H, Pro-B-Type Natriuretic Peptide 60551C, Triglycerides Level 229H, Cholesterol Level 139, LDL Cholesterol 64, HDL Cholesterol 29, Cholesterol/HDL Ratio 4.8H, Vitamin B12 Level 1584H, Folate [ Pending], Thyroid Stimulating Hormone (TSH) 1.900 Current Medications Medications (Trade) Dose Ordered Sig/Tracy Route PRN Reason Start Time Stop Time Status Last Admin Dose Admin Acetaminophen (Tylenol) 650 mg Q4H PRN ORAL T>100.5 01/11/17 14:45 02/10/17 14:44 Albuterol/ Ipratropium (DuoNeb 0.5-3(2.5)mg/3ml) 3 ml Q6H PRN HHN Shortness of Breath 01/11/17 14:45 01/16/17 14:44 Amlodipine Besylate (Norvasc) 10 mg DAILY ORAL 01/12/17 09:00 02/11/17 08:59 01/13/17 09:04 Aspirin (ASA) 81 mg DAILY NG 01/12/17 09:00 02/11/17 08:59 01/13/17 09:04 Clonidine HCl (Catapres) 0.1 mg Q4H PRN ORAL SBP>160 01/11/17 14:45 02/10/17 14:44 Divalproex Sodium (Depakote ER) 500 mg EVERY 12 HOURS ORAL 01/11/17 21:00 02/10/17 20:59 01/13/17 09:04 Heparin Sodium (Porcine) (Heparin 5000 units/ml) 5,000 units EVERY 12 HOURS SUBQ 01/11/17 21:00 02/10/17 20:59 01/13/17 09:05 Hydralazine HCl (Apresoline) 50 mg EVERY 8 HOURS ORAL 01/11/17 22:00 02/10/17 21:59 01/13/17 06:06 Labetalol HCl (Normodyne) 200 mg EVERY 12 HOURS ORAL 01/11/17 21:00 02/10/17 20:59 01/13/17 09:04 Levetiracetam (Keppra) 500 mg Q12HR NG 01/12/17 09:00 02/11/17 08:59 01/13/17 09:05 Morphine Sulfate (Morphine Sulfate) 1 mg Q4H PRN IVP PAIN 4-10 01/11/17 14:45 01/18/17 14:44 Ondansetron HCl (Zofran) 4 mg Q6H PRN IVP Nausea & Vomiting 01/11/17 14:45 02/10/17 14:44 Polyethylene Glycol (Miralax) 17 gm HSPRN PRN ORAL Constipation 01/11/17 21:00 02/10/17 20:59 Trazodone HCl (Desyrel) 50 mg BEDTIME ORAL 01/11/17 21:00 02/10/17 20:59 01/12/17 21:16 Vitamin A/Vitamin D (A & D Oint) 1 applic EVERY 12 HOURS TOPIC 01/12/17 21:00 02/11/17 20:59 01/13/17 09:05 Zolpidem Tartrate (Ambien) 5 mg HSPRN PRN ORAL Insomnia 01/11/17 21:00 02/10/17 20:59 MITUL NAVARRO Jan 13, 2017 10:48
[2017-01-13 12:00] VITALS: BP 128/65
[2017-01-13 13:53] LABS: ALBUMIN/GLOBULIN RATIO 0.7 (1.0-2.7); CALCIUM 8.7 mg/dL (8.6-10.2); CREATININE 13.5 mg/dL (0.7-1.2); GLOMERULAR FILTRATION RATE 4.5 mL/min (>60); POTASSIUM 3.7 mEQ/L (3.4-4.9); TOTAL PROTEIN 7.1 g/dL (6.6-8.7)
--- NOTE | 2017-01-13 15:36 | General Progress Note ---
Assessment/Plan Status: stable Assessment/Plan status: ESRD next HD 08/15, in process HyperKalemia- resolved after HD HTN DM Dementia CVA Sz disorder Plan; HD today- Phos binders per consultants Subjective ROS Limited/Unobtainable: No Allergies: Coded Allergies: No Known Allergies (Verified , 03/31/11) Objective Last 24 Hour Vital Signs Date Time Temp Pulse Resp B/P Pulse Ox O2 Delivery O2 Flow Rate FiO2 01/13/17 13:55 123/70 01/13/17 12:10 Nasal Cannula 2.0 01/13/17 12:00 66 01/13/17 12:00 97.0 66 18 128/65 100 Nasal Cannula 2.0 01/13/17 09:04 70 135/66 01/13/17 09:04 70 135/66 01/13/17 08:00 70 01/13/17 08:00 97.7 70 20 135/66 100 Nasal Cannula 2.0 01/13/17 07:20 71 18 Nasal Cannula 3.0 32 01/13/17 07:18 Nasal Cannula 3.0 32 01/13/17 07:18 99 Nasal Cannula 3.0 32 01/13/17 06:06 130/66 01/13/17 06:00 72 01/13/17 04:00 97.2 72 21 128/64 99 Room Air 72 01/13/17 00:00 74 01/12/17 22:45 75 124/66 01/12/17 22:44 124/66 01/12/17 21:00 72 119/62 01/12/17 20:02 Nasal Cannula 3.0 32 01/12/17 20:00 85 01/12/17 20:00 97.9 81 20 119/65 96 Room Air 81 01/12/17 19:40 91 Nasal Cannula 3.0 32 01/12/17 19:40 90 18 Nasal Cannula 3.0 01/12/17 16:00 85 01/12/17 16:00 98.8 84 20 120/51 98 Room Air Intake and Output 01/12/17 01/13/17 19:00 07:00 Output Total 100 ml 1900 ml Balance -100 ml -1900 ml Output Urine Total 100 ml 1900 ml # Bowel Movements 2 Laboratory Tests 01/13/17 03:10: White Blood Count 12.5H, Red Blood Count 2.84L, Hemoglobin 8.5L, Hematocrit 26.5L, Mean Corpuscular Volume 93, Mean Corpuscular Hemoglobin 29.9, Mean Corpuscular Hemoglobin Concent 32.0, Red Cell Distribution Width 15.2H, Platelet Count 200, Mean Platelet Volume 7.1, Neutrophils (%) (Auto) 71.1, Lymphocytes (%) (Auto) 9.4L, Monocytes (%) (Auto) 17.9H, Eosinophils (%) (Auto) 0.4, Basophils (%) (Auto) 1.2, Sodium Level 143, Potassium Level 3.7, Chloride Level 90L, Carbon Dioxide Level 20, Anion Gap 33H, Blood Urea Nitrogen 125#H, Creatinine 13.5H, Estimat Glomerular Filtration Rate 4.5, Glucose Level 99, Hemoglobin A1c 4.4, Uric Acid 8.2H, Calcium Level 8.7, Phosphorus Level 11.4H, Magnesium Level 2.3, Iron Level 113, Total Iron Binding Capacity 194L, Percent Iron Saturation 58H, Unsaturated Iron Binding 81L, Ferritin 859H, Total Bilirubin 0.7, Gamma Glutamyl Transpeptidase 65H, Aspartate Amino Transf (AST/ SGOT) 24, Alanine Aminotransferase (ALT/SGPT) 9, Alkaline Phosphatase 76, Total Creatine Kinase 498H, C-Reactive Protein, Quantitative 21.7H, Pro-B-Type Natriuretic Peptide 20783N, Total Protein 7.1, Albumin 3.1L, Globulin 4.0, Albumin/Globulin Ratio 0.7L, Triglycerides Level 229H, Cholesterol Level 139, LDL Cholesterol 64, HDL Cholesterol 29, Cholesterol/HDL Ratio 4.8H, Vitamin B12 Level 1584H, Folate [Pending], Thyroid Stimulating Hormone (TSH) 1.900 Height (Feet): 6 Height (Inches): 0.00 Weight (Pounds): 200 General Appearance: no apparent distress Objective other PE not changed SHILOH CABRAL Jan 13, 2017 15:36
[2017-01-13 16:00] VITALS: BP 119/60
--- NOTE | 2017-01-13 17:46 | Consultation ---
Consult Note Consult Note PODIATRY CONSULTATION CONSULTING PHYSICIAN: Obi Valiente DPM covering for Rashel Hamm DPM DATE OF CONSULT: 01/13/17 REASON FOR CONSULT: Bilateral foot ulcers HISTORY OF PRESENT ILLNESS: Patient is unable to communicate effectively. Therefore, the history was obtained from reviewing the charts PAST MEDICAL HISTORY: ESRD on hemodialysis, HTN, DM, Dementia, CVA, Seizure disorder ALLERGIES: No known FAMILY AND SOCIAL HISTORY: Non contributory Last 24 Hour Vital Signs Date Time Temp Pulse Resp B/P Pulse Ox O2 Delivery O2 Flow Rate FiO2 01/13/17 16:00 96.7 70 7 119/60 100 Nasal Cannula 2.0 01/13/17 15:45 Nasal Cannula 2.0 01/13/17 13:55 123/70 01/13/17 12:10 Nasal Cannula 2.0 01/13/17 12:00 66 01/13/17 12:00 97.0 66 18 128/65 100 Nasal Cannula 2.0 01/13/17 09:04 70 135/66 01/13/17 09:04 70 135/66 01/13/17 08:00 70 01/13/17 08:00 97.7 70 20 135/66 100 Nasal Cannula 2.0 01/13/17 07:20 71 18 Nasal Cannula 3.0 32 01/13/17 07:18 Nasal Cannula 3.0 32 01/13/17 07:18 99 Nasal Cannula 3.0 32 01/13/17 06:06 130/66 01/13/17 06:00 72 01/13/17 04:00 97.2 72 21 128/64 99 Room Air 72 01/13/17 00:00 74 01/12/17 22:45 75 124/66 01/12/17 22:44 124/66 01/12/17 21:00 72 119/62 01/12/17 20:02 Nasal Cannula 3.0 32 01/12/17 20:00 85 01/12/17 20:00 97.9 81 20 119/65 96 Room Air 81 01/12/17 19:40 91 Nasal Cannula 3.0 32 01/12/17 19:40 90 18 Nasal Cannula 3.0 Laboratory Tests Test 01/13/17 03:10 White Blood Count 12.5 K/UL (4.8-10.8) H Red Blood Count 2.84 M/UL (4.70-6.10) L Hemoglobin 8.5 G/DL (14.2-18.0) L Hematocrit 26.5 % (42.0-52.0) L Mean Corpuscular Volume 93 FL (80-99) Mean Corpuscular Hemoglobin 29.9 PG (27.0-31.0) Mean Corpuscular Hemoglobin Concent 32.0 G/DL (32.0-36.0) Red Cell Distribution Width 15.2 % (11.6-14.8) H Platelet Count 200 K/UL (150-450) Mean Platelet Volume 7.1 FL (6.5-10.1) Neutrophils (%) (Auto) 71.1 % (45.0-75.0) Lymphocytes (%) (Auto) 9.4 % (20.0-45.0) L Monocytes (%) (Auto) 17.9 % (1.0-10.0) H Eosinophils (%) (Auto) 0.4 % (0.0-3.0) Basophils (%) (Auto) 1.2 % (0.0-2.0) Sodium Level 143 mEQ/L (135-145) Potassium Level 3.7 mEQ/L (3.4-4.9) Chloride Level 90 mEQ/L (98-107) L Carbon Dioxide Level 20 mEQ/L (20-30) Anion Gap 33 (5-15) H Blood Urea Nitrogen 125 mg/dL (7-23) #H Creatinine 13.5 mg/dL (0.7-1.2) H Estimat Glomerular Filtration Rate 4.5 mL/min (>60) Glucose Level 99 mg/dL (74-106) Hemoglobin A1c 4.4 % (< 6.0) Uric Acid 8.2 mg/dL (3.0-7.5) H Calcium Level 8.7 mg/dL (8.6-10.2) Phosphorus Level 11.4 mg/dL (2.5-4.8) H Magnesium Level 2.3 mg/dL (1.7-2.5) Iron Level 113 ug/dL (59-158) Total Iron Binding Capacity 194 ug/dL (250-400) L Percent Iron Saturation 58 % (15-50) H Unsaturated Iron Binding 81 ug/dL (112-346) L Ferritin 859 ng/mL (10-230) H Total Bilirubin 0.7 mg/dL (0.0-1.2) Gamma Glutamyl Transpeptidase 65 U/L (8-61) H Aspartate Amino Transf (AST/SGOT) 24 U/L (5-40) Alanine Aminotransferase (ALT/SGPT) 9 U/L (3-41) Alkaline Phosphatase 76 U/L (40-129) Total Creatine Kinase 498 U/L (38-174) H C-Reactive Protein, Quantitative 21.7 mg/dL (< 0.5) H Pro-B-Type Natriuretic Peptide 57701 pg/mL (0-125) H Total Protein 7.1 g/dL (6.6-8.7) Albumin 3.1 g/dL (3.5-5.2) L Globulin 4.0 g/dL Albumin/Globulin Ratio 0.7 (1.0-2.7) L Triglycerides Level 229 mg/dL (< 150) H Cholesterol Level 139 mg/dL (< 200) LDL Cholesterol 64 mg/dL (60-99) HDL Cholesterol 29 mg/dL (> 60) Cholesterol/HDL Ratio 4.8 (3.3-4.4) H Vitamin B12 Level 1584 pg/mL (211-946) H Folate Pending Thyroid Stimulating Hormone (TSH) 1.900 uIU/mL (0.300-4.500) Microbiology Date/Time Source Procedure Growth Status 01/11/17 12:50 Nasal Nares MRSA Culture - Final NO METHICILLIN RESISTANT STAPH AUREUS... Complete 01/11/17 11:05 Urine,Clean Catch Urine Culture - Final Escherichia Coli Complete 01/11/17 12:50 Rectum VRE Culture - Final NO VANCOMYCIN RESISTANT ENTEROCOCCUS ... Complete Physical exam: Dermatological: Bilateral heels with hyperpigmented stage one pressure ulcers as well as at the right lateral ankle. There is a blister at the plantar medial right forefoot. No open wounds or ulcers. No drainage, purulence, or malodor noted Neurological: Patient reacts to sharp stimulus. Unable to assess light touch sensation Musculoskeletal: Patient is bed bound and non ambulatory. Unable to assess muscle strength Vascular: Pedal pulses lightly palpable . Assessment/Plan ASSESSMENT: - Bilateral heel and right lateral ankle with stage 1 pressure ulcer - Right foot with blister at the plantar medial forefoot PLAN: - Continue aggressive offloading of the wounds - Okay to keep the heels open to air as long as they are offloaded - Monitor site of right plantar foot blister for changes THANK YOU FOR THE CONSULTATION Obi Valiente DPM Jan 13, 2017 17:46
[2017-01-13] MEDS ORDERED: Acetaminophen 650mg/20.3ml ORAL PRN (18:45)
[2017-01-13 20:00] VITALS: BP 114/71
[2017-01-13] MEDS ORDERED: DuoNeb 0.5-3(2.5)mg/3ml neb HHN PRN (20:45)
[2017-01-13] MEDS ORDERED: Miralax 17gm pkt ORAL PRN (21:00)
[2017-01-13] MEDS ORDERED: Zolpidem 5mg tab ORAL PRN (21:00)
[2017-01-13] MEDS: Valproic Acid 250mg/5ml Liquid GT SCH (21:03)
[2017-01-13] MEDS: TraZODone 50mg tab ORAL SCH (21:04)
--- NOTE | 2017-01-13 22:18 | General Progress Note ---
Assessment/Plan Assessment/Plan GI consult Dictated PEG tomorrow Thank you Subjective Allergies: Coded Allergies: No Known Allergies (Verified , 03/31/11) Objective Last 24 Hour Vital Signs Date Time Temp Pulse Resp B/P Pulse Ox O2 Delivery O2 Flow Rate FiO2 01/13/17 21:05 80 114/71 01/13/17 21:04 114/71 01/13/17 20:00 98.8 80 22 114/71 93 Room Air 01/13/17 19:49 98 Nasal Cannula 2.0 28 01/13/17 19:49 70 18 Nasal Cannula 2.0 28 01/13/17 19:49 Nasal Cannula 2.0 28 01/13/17 16:00 67 01/13/17 16:00 96.7 70 7 119/60 100 Nasal Cannula 2.0 01/13/17 15:45 Nasal Cannula 2.0 01/13/17 13:55 123/70 01/13/17 12:10 Nasal Cannula 2.0 01/13/17 12:00 66 01/13/17 12:00 97.0 66 18 128/65 100 Nasal Cannula 2.0 01/13/17 09:04 70 135/66 01/13/17 09:04 70 135/66 01/13/17 08:00 70 01/13/17 08:00 97.7 70 20 135/66 100 Nasal Cannula 2.0 01/13/17 07:20 71 18 Nasal Cannula 3.0 32 01/13/17 07:18 Nasal Cannula 3.0 32 01/13/17 07:18 99 Nasal Cannula 3.0 32 01/13/17 06:06 130/66 01/13/17 06:00 72 01/13/17 04:00 97.2 72 21 128/64 99 Room Air 72 01/13/17 00:00 74 01/12/17 22:45 75 124/66 01/12/17 22:44 124/66 Intake and Output 01/12/17 01/13/17 19:00 07:00 Output Total 100 ml 1900 ml Balance -100 ml -1900 ml Output Urine Total 100 ml 1900 ml # Bowel Movements 2 Laboratory Tests 01/13/17 03:10: White Blood Count 12.5H, Red Blood Count 2.84L, Hemoglobin 8.5L, Hematocrit 26.5L, Mean Corpuscular Volume 93, Mean Corpuscular Hemoglobin 29.9, Mean Corpuscular Hemoglobin Concent 32.0, Red Cell Distribution Width 15.2H, Platelet Count 200, Mean Platelet Volume 7.1, Neutrophils (%) (Auto) 71.1, Lymphocytes (%) (Auto) 9.4L, Monocytes (%) (Auto) 17.9H, Eosinophils (%) (Auto) 0.4, Basophils (%) (Auto) 1.2, Sodium Level 143, Potassium Level 3.7, Chloride Level 90L, Carbon Dioxide Level 20, Anion Gap 33H, Blood Urea Nitrogen 125#H, Creatinine 13.5H, Estimat Glomerular Filtration Rate 4.5, Glucose Level 99, Hemoglobin A1c 4.4, Uric Acid 8.2H, Calcium Level 8.7, Phosphorus Level 11.4H, Magnesium Level 2.3, Iron Level 113, Total Iron Binding Capacity 194L, Percent Iron Saturation 58H, Unsaturated Iron Binding 81L, Ferritin 859H, Total Bilirubin 0.7, Gamma Glutamyl Transpeptidase 65H, Aspartate Amino Transf (AST/ SGOT) 24, Alanine Aminotransferase (ALT/SGPT) 9, Alkaline Phosphatase 76, Total Creatine Kinase 498H, C-Reactive Protein, Quantitative 21.7H, Pro-B-Type Natriuretic Peptide 94055K, Total Protein 7.1, Albumin 3.1L, Globulin 4.0, Albumin/Globulin Ratio 0.7L, Triglycerides Level 229H, Cholesterol Level 139, LDL Cholesterol 64, HDL Cholesterol 29, Cholesterol/HDL Ratio 4.8H, Vitamin B12 Level 1584H, Folate [Pending], Thyroid Stimulating Hormone (TSH) 1.900 Height (Feet): 6 Height (Inches): 0.00 Weight (Pounds): 200 TAMYSAMANA Jan 13, 2017 22:18
[2017-01-14] VITALS (12 sets, daily range): BP systolic 102–129; BP diastolic 52–65
[2017-01-14] MEDS ORDERED: ceFAZolin sod 0.5 GM in D5W 55 ML IV ONE (02:00)
[2017-01-14] MEDS ORDERED: ceFAZolin sod 0.5 GM in D5W 55 ML IVP SCH (02:00)
--- NOTE | 2017-01-14 02:48 | Consultation ---
DATE OF CONSULTATION: 01/13/2017 GASTROENTEROLOGY CONSULTATION CONSULTING PHYSICIAN: Kori Snell M.D. CHIEF COMPLAINT: I was asked to see this patient for evaluation of gastrostomy tube placement. HISTORY OF PRESENT ILLNESS: The patient is a debilitated 66-year-old man, who comes into the hospital due to multiple issues. The patient history of stroke and dementia. He does not speak much and most of the information. He failed a swallow study gastrostomy tube request was made. PAST MEDICAL HISTORY: History of hypertension, diabetes, dementia, stroke, and seizures. FAMILY HISTORY: Noncontributory. SOCIAL HISTORY: The patient is . No recent history of smoking or drinking. REVIEW OF SYSTEMS: Otherwise negative. MEDICATIONS: See chart list for details. PHYSICAL EXAMINATION: GENERAL: The patient is a well-developed and well-nourished man, seen with his at bedside. HEENT: Normocephalic and atraumatic. Sclerae anicteric. Oropharynx clear. NECK: Supple. CHEST: Clear to auscultation. CARDIOVASCULAR: Regular rate. ABDOMEN: Soft. Good bowel sounds. EXTREMITIES: Revealed no edema. LABORATORY DATA: Laboratory data were noted. ASSESSMENT: This patient has stroke. This patient has failed a swallow study. The patient is a good candidate for gastrostomy tube placement for enteral access and nutrition to improve his swallow function. Indications, risks, alternatives, and possible complications were explained to the patient and informed consent was obtained. RECOMMENDATIONS: 1. medications. 2. Gastrostomy tube placement tomorrow. Thank you for asking me to participate in care of this patient. Kori Snell M.D. DR: LESLIE JOB#: [id number] CC:
[2017-01-14] MEDS: HydrALAZINE 50mg tab ORAL SCH ×3 (05:34→22:00)
[2017-01-14 07:04] LABS: BASOPHILS % (AUTO) 1.4 % (0.0-2.0); EOSINOPHILS % (AUTO) 0.6 % (0.0-3.0); LYMPHOCYTES % (AUTO) 6.6 % (20.0-45.0); MEAN CORPUSCULAR HEMOGLOBIN 29.8 PG (27.0-31.0); MEAN CORPUSCULAR HGB CONC 30.8 G/DL (32.0-36.0); MEAN CORPUSCULAR VOLUME 97 FL (80-99); MEAN PLATELET VOLUME 6.9 FL (6.5-10.1); NEUTROPHILS % (AUTO) 77.5 % (45.0-75.0); PLATELET COUNT 235 K/UL (150-450); RED BLOOD COUNT 3.11 M/UL (4.70-6.10); RED CELL DISTRIBUTION WIDTH 15.2 % (11.6-14.8); WHITE BLOOD COUNT 14.4 K/UL (4.8-10.8)
[2017-01-14] MEDS ORDERED: Lidocaine 1% MPF 10mg/ml 5ml ONE (07:28)
[2017-01-14] MEDS ORDERED: Propofol 10mg/ml 20ml IV ONE (07:28)
[2017-01-14] MEDS: Heparin 5000 units/ml inj SUBQ SCH ×2 (08:11→20:30)
[2017-01-14 08:44] LABS: ALBUMIN/GLOBULIN RATIO 0.6 (1.0-2.7); CALCIUM 9.3 mg/dL (8.6-10.2); CREATININE 8.6 mg/dL (0.7-1.2); GLOMERULAR FILTRATION RATE 7.6 mL/min (>60); POTASSIUM 4.2 mEQ/L (3.4-4.9); TOTAL PROTEIN 8.5 g/dL (6.6-8.7)
[2017-01-14] MEDS ORDERED: Renvela 800mg Pkt ORAL SCH (09:00)
[2017-01-14] MEDS: Aspirin Baby 81mg NG SCH (09:04)
[2017-01-14] MEDS: levETIRAcetam 500mg/5ml Liquid NG SCH ×2 (09:04→20:23)
[2017-01-14] MEDS: Valproic Acid 250mg/5ml Liquid GT SCH ×2 (09:05→20:23)
[2017-01-14] MEDS: Labetalol 200mg tab ORAL SCH ×2 (09:05→20:23)
[2017-01-14] MEDS: Vitamin A&D Oint 2oz Tube TOPIC SCH ×2 (09:11→20:32)
[2017-01-14 10:50] LABS: CRP QUANT 20.4 mg/dL (< 0.5); PHOSPHORUS 8.2 mg/dL (2.5-4.8); URIC ACID 5.6 mg/dL (3.0-7.5)
--- NOTE | 2017-01-14 10:59 | Pulmonology Progress Note ---
Assessment/Plan Assessment/Plan ASSESSMENT acute hyperkalemia ESRD, on HD anemia of chronic renal disease acute hepatic encephalopathy possible sepsis UTI/E coli PNA ( R base ) HTN seizure disorder hx of CVA L heel decub st 4, POA Bilateral heel and right lateral ankle with stage 1 pressure ulcer Right foot with blister at the plantar medial forefoot functional quadriplegia PLAN OF CARE MS floor O2 HHN prn abx , urine cx + E coli, sputum cx if able fup CXR with some improvement , initial CXR with R base infiltrate however leukocytosis trendgin up anemia workup noted, stable iron, anemia of chronic renal disease HD as per nephro monitor renal parameters, lytes; avoid nephrotoxic hyperkalemia resolved BP management with CCB, Hydralazine start lactulose, check ammonia in 2 days seizure precautions, continue Depakote and Keppra PT/OT failed swallow eval NPO NGT GI consult for PEG placement PEG today as planned wound care as per wound nurse recommendation automation tender eval appreciated , fup with automation tender recommendations DVT prophylaxis SS eval for placement case discussed and evaluated by supervising physician Subjective Allergies: Coded Allergies: No Known Allergies (Verified , 03/31/11) Subjective leukocytosis trending up, afebrile on RA sat stable no signs of respiratory distress PEG planned for today Objective Last 24 Hour Vital Signs Date Time Temp Pulse Resp B/P Pulse Ox O2 Delivery O2 Flow Rate FiO2 01/14/17 09:05 74 116/58 01/14/17 09:05 74 116/58 01/14/17 09:00 Nasal Cannula 2.0 28 01/14/17 09:00 73 18 Nasal Cannula 2.0 28 01/14/17 09:00 99 Nasal Cannula 2.0 28 01/14/17 05:34 116/58 01/14/17 04:54 97.2 74 22 116/58 95 Room Air 01/14/17 00:00 97.7 73 22 102/52 92 Room Air 01/13/17 21:05 80 114/71 01/13/17 21:04 114/71 01/13/17 20:00 98.8 80 22 114/71 93 Room Air 01/13/17 19:49 98 Nasal Cannula 2.0 28 01/13/17 19:49 70 18 Nasal Cannula 2.0 28 01/13/17 19:49 Nasal Cannula 2.0 28 01/13/17 16:00 67 01/13/17 16:00 96.7 70 7 119/60 100 Nasal Cannula 2.0 01/13/17 15:45 Nasal Cannula 2.0 01/13/17 13:55 123/70 01/13/17 12:10 Nasal Cannula 2.0 01/13/17 12:00 66 01/13/17 12:00 97.0 66 18 128/65 100 Nasal Cannula 2.0 Intake and Output 01/13/17 01/14/17 19:00 07:00 Intake Total 120 ml 55 ml Output Total 2290 ml Balance -2170 ml 55 ml Intake IV Total 55 ml Other 120 ml Output Urine Total 40 ml Hemodialysis UF 2250 ml # Bowel Movements 1 General Appearance: no acute distress, other - bedridde, poorly responsive male in NAD HEENT: normocephalic, atraumatic, anicteric, other - NGT Respiratory/Chest: lungs clear - with moderate air entry , no accessory muscle use Cardiovascular: normal rate, regular rhythm, no JVD Abdomen: normal bowel sounds, soft, non tender, non distended Extremities: no edema, pedal pulses normal Neurologic/Psychiatric: abnormal gait - bedridden , other - spastic LE, eyes open, poorly responsive AA male Musculoskeletal: atrophy - BLE Microbiology Date/Time Source Procedure Growth Status 01/11/17 12:50 Nasal Nares MRSA Culture - Final NO METHICILLIN RESISTANT STAPH AUREUS... Complete 01/11/17 11:05 Urine,Clean Catch Urine Culture - Final Escherichia Coli Complete 01/11/17 12:50 Rectum VRE Culture - Final NO VANCOMYCIN RESISTANT ENTEROCOCCUS ... Complete Laboratory Tests 01/14/17 05:30: White Blood Count 14.4H, Red Blood Count 3.11L, Hemoglobin 9.2L, Hematocrit 30.0L, Mean Corpuscular Volume 97, Mean Corpuscular Hemoglobin 29.8, Mean Corpuscular Hemoglobin Concent 30.8L, Red Cell Distribution Width 15.2H, Platelet Count 235, Mean Platelet Volume 6.9, Neutrophils (%) (Auto) 77.5H, Lymphocytes (%) (Auto) 6.6L, Monocytes (%) (Auto) 14.0H, Eosinophils (%) (Auto) 0.6, Basophils (%) (Auto) 1.4, Sodium Level 144, Potassium Level 4.2, Chloride Level 94L, Carbon Dioxide Level 24, Anion Gap 26H, Blood Urea Nitrogen 78#H, Creatinine 8.6H, Estimat Glomerular Filtration Rate 7.6, Glucose Level 92, Uric Acid 5.6, Calcium Level 9.3, Phosphorus Level 8.2H, Total Bilirubin 0.9, Aspartate Amino Transf (AST/SGOT) 29, Alanine Aminotransferase (ALT/SGPT) 12, Alkaline Phosphatase 161H, C-Reactive Protein, Quantitative 20.4H, Pro-B-Type Natriuretic Peptide 57771H, Total Protein 8.5, Albumin 3.4L, Globulin 5.1, Albumin/Globulin Ratio 0.6L Current Medications Medications (Trade) Dose Ordered Sig/Tracy Route PRN Reason Start Time Stop Time Status Last Admin Dose Admin Acetaminophen (Tylenol) 650 mg Q4H PRN ORAL T>100.5 01/13/17 18:45 02/12/17 18:44 Albuterol/ Ipratropium (DuoNeb 0.5-3(2.5)mg/3ml) 3 ml Q6H PRN HHN Shortness of Breath 01/13/17 20:45 01/18/17 20:44 Amlodipine Besylate (Norvasc) 10 mg DAILY ORAL 01/14/17 09:00 02/13/17 08:59 01/14/17 09:05 Aspirin (ASA) 81 mg DAILY NG 01/14/17 09:00 02/13/17 08:59 01/14/17 09:04 Clonidine HCl (Catapres) 0.1 mg Q4H PRN ORAL SBP>160 01/13/17 18:45 02/12/17 18:44 Heparin Sodium (Porcine) (Heparin 5000 units/ml) 5,000 units EVERY 12 HOURS SUBQ 01/13/17 21:00 02/12/17 20:59 01/13/17 21:06 Hydralazine HCl (Apresoline) 50 mg EVERY 8 HOURS ORAL 01/13/17 22:00 02/12/17 21:59 01/13/17 21:04 Labetalol HCl (Normodyne) 200 mg EVERY 12 HOURS ORAL 01/13/17 21:00 02/12/17 20:59 01/14/17 09:05 Levetiracetam (Keppra) 500 mg Q12HR NG 01/13/17 21:00 02/12/17 20:59 01/14/17 09:04 Morphine Sulfate (Morphine Sulfate) 1 mg Q4H PRN IVP PAIN 4-10 01/13/17 18:45 01/20/17 18:44 Ondansetron HCl (Zofran) 4 mg Q6H PRN IVP Nausea & Vomiting 01/13/17 20:45 02/12/17 20:44 Polyethylene Glycol (Miralax) 17 gm HSPRN PRN ORAL Constipation 01/13/17 21:00 02/12/17 20:59 Sevelamer Carbonate (Renvela) 1,600 mg THREE TIMES A DAY ORAL 01/14/17 09:00 02/13/17 08:59 01/14/17 09:11 Trazodone HCl (Desyrel) 50 mg BEDTIME ORAL 01/13/17 21:00 02/12/17 20:59 01/13/17 21:04 Valproic Acid (Depakene) 250 mg Q12HR GT 01/13/17 21:00 02/12/17 20:59 01/14/17 09:05 Vitamin A/Vitamin D (A & D Oint) 1 applic EVERY 12 HOURS TOPIC 01/13/17 21:00 02/12/17 20:59 01/14/17 09:11 Zolpidem Tartrate (Ambien) 5 mg HSPRN PRN ORAL Insomnia 01/13/17 21:00 02/12/17 20:59 Jaquan CalvoAna ordaz NP Jan 14, 2017 10:59
--- NOTE | 2017-01-14 11:04 | Diagnostic Imaging Report ---
Indications: DYSPNEA Technique: Portable AP chest Findings: Comparison: 417 Tube has been placed, tip in the region of the gastric fundus, proximal port in the region of esophagogastric junction. Mild elevation apparent right hemidiaphragm persists. Cluster of hazy and nodular opacities in the right lung base persists, less well demonstrated. Left lung, bilateral pleural surfaces remain clear. Cardiac mediastinal silhouette stable. IMPRESSION: Nasogastric tube in stomach, recommend advancement another 5 cm Decreased conspicuity of right lung base infiltrate--partial resolution versus unmasking by elevation of right hemidiaphragm
--- NOTE | 2017-01-14 13:12 | General Progress Note ---
Assessment/Plan Assessment/Plan Assessment - Anemia - no e/o Fe deficiency - CRF - dysphagia Recommendations - follow CBC - GI w/u if H&H drops over time - PEG placement today Subjective Allergies: Coded Allergies: No Known Allergies (Verified , 03/31/11) Subjective No events overnight NPO for PEG labs noted Objective Last 24 Hour Vital Signs Date Time Temp Pulse Resp B/P Pulse Ox O2 Delivery O2 Flow Rate FiO2 01/14/17 12:00 97.7 72 20 113/55 100 Room Air 01/14/17 09:05 74 116/58 01/14/17 09:05 74 116/58 01/14/17 09:00 Nasal Cannula 2.0 28 01/14/17 09:00 73 18 Nasal Cannula 2.0 28 01/14/17 09:00 99 Nasal Cannula 2.0 28 01/14/17 05:34 116/58 01/14/17 04:54 97.2 74 22 116/58 95 Room Air 01/14/17 00:00 97.7 73 22 102/52 92 Room Air 01/13/17 21:05 80 114/71 01/13/17 21:04 114/71 01/13/17 20:00 98.8 80 22 114/71 93 Room Air 01/13/17 19:49 98 Nasal Cannula 2.0 28 01/13/17 19:49 70 18 Nasal Cannula 2.0 28 01/13/17 19:49 Nasal Cannula 2.0 28 01/13/17 16:00 67 01/13/17 16:00 96.7 70 7 119/60 100 Nasal Cannula 2.0 01/13/17 15:45 Nasal Cannula 2.0 01/13/17 13:55 123/70 Intake and Output 01/13/17 01/14/17 19:00 07:00 Intake Total 120 ml 55 ml Output Total 2290 ml Balance -2170 ml 55 ml Intake IV Total 55 ml Other 120 ml Output Urine Total 40 ml Hemodialysis UF 2250 ml # Bowel Movements 1 Laboratory Tests 01/14/17 05:30: White Blood Count 14.4H, Red Blood Count 3.11L, Hemoglobin 9.2L, Hematocrit 30.0L, Mean Corpuscular Volume 97, Mean Corpuscular Hemoglobin 29.8, Mean Corpuscular Hemoglobin Concent 30.8L, Red Cell Distribution Width 15.2H, Platelet Count 235, Mean Platelet Volume 6.9, Neutrophils (%) (Auto) 77.5H, Lymphocytes (%) (Auto) 6.6L, Monocytes (%) (Auto) 14.0H, Eosinophils (%) (Auto) 0.6, Basophils (%) (Auto) 1.4, Sodium Level 144, Potassium Level 4.2, Chloride Level 94L, Carbon Dioxide Level 24, Anion Gap 26H, Blood Urea Nitrogen 78#H, Creatinine 8.6H, Estimat Glomerular Filtration Rate 7.6, Glucose Level 92, Uric Acid 5.6, Calcium Level 9.3, Phosphorus Level 8.2H, Total Bilirubin 0.9, Aspartate Amino Transf (AST/SGOT) 29, Alanine Aminotransferase (ALT/SGPT) 12, Alkaline Phosphatase 161H, C-Reactive Protein, Quantitative 20.4H, Pro-B-Type Natriuretic Peptide 89342H, Total Protein 8.5, Albumin 3.4L, Globulin 5.1, Albumin/Globulin Ratio 0.6L Height (Feet): 6 Height (Inches): 0.00 Weight (Pounds): 200 Objective WDWN confused NCAT supple CTA RRR Soft ND NT No edema OBS NANCY MORELOS Jan 14, 2017 13:12
--- NOTE | 2017-01-14 13:14 | Pre-Procedure Note/Attestation ---
Pre-Procedure Note/Attestation Complete Prior to Procedure Planned Procedure: not applicable Procedure Narrative: PEG Indications for Procedure Pre-Operative Diagnosis: dysphagia Attestation I attest that I discussed the nature of the procedure; its benefits; risks and complications; and alternatives (and the risks and benefits of such alternatives ), prior to the procedure, with the patient (or the patient's legal sales representative meats). I attest that, if there was a reasonable possibility of needing a blood transfusion, the patient (or the patient's legal sales representative meats) was given the [facility] standardized written summary, pursuant to the [place] Blood Safety Act ([place] Health and Safety Code # 1645, as amended). I attest that I re-evaluated the patient just prior to the surgery and that there has been no change in the patient's H&P, except as documented below: NANCY MORELOS Jan 14, 2017 13:14
--- NOTE | 2017-01-14 13:25 | General Progress Note ---
Assessment/Plan Status: stable Assessment/Plan status: ESRD next HD 08/15, in process HyperKalemia- resolved after HD HTN DM Dementia CVA Sz disorder Plan; HD in am Phos binders per consultants Subjective ROS Limited/Unobtainable: Yes Allergies: Coded Allergies: No Known Allergies (Verified , 03/31/11) Objective Last 24 Hour Vital Signs Date Time Temp Pulse Resp B/P Pulse Ox O2 Delivery O2 Flow Rate FiO2 01/14/17 12:00 97.7 72 20 113/55 100 Room Air 01/14/17 09:05 74 116/58 01/14/17 09:05 74 116/58 01/14/17 09:00 Nasal Cannula 2.0 28 01/14/17 09:00 73 18 Nasal Cannula 2.0 28 01/14/17 09:00 99 Nasal Cannula 2.0 28 01/14/17 05:34 116/58 01/14/17 04:54 97.2 74 22 116/58 95 Room Air 01/14/17 00:00 97.7 73 22 102/52 92 Room Air 01/13/17 21:05 80 114/71 01/13/17 21:04 114/71 01/13/17 20:00 98.8 80 22 114/71 93 Room Air 01/13/17 19:49 98 Nasal Cannula 2.0 28 01/13/17 19:49 70 18 Nasal Cannula 2.0 28 01/13/17 19:49 Nasal Cannula 2.0 28 01/13/17 16:00 67 01/13/17 16:00 96.7 70 7 119/60 100 Nasal Cannula 2.0 01/13/17 15:45 Nasal Cannula 2.0 01/13/17 13:55 123/70 Intake and Output 01/13/17 01/14/17 19:00 07:00 Intake Total 120 ml 55 ml Output Total 2290 ml Balance -2170 ml 55 ml Intake IV Total 55 ml Other 120 ml Output Urine Total 40 ml Hemodialysis UF 2250 ml # Bowel Movements 1 Laboratory Tests 01/14/17 05:30: White Blood Count 14.4H, Red Blood Count 3.11L, Hemoglobin 9.2L, Hematocrit 30.0L, Mean Corpuscular Volume 97, Mean Corpuscular Hemoglobin 29.8, Mean Corpuscular Hemoglobin Concent 30.8L, Red Cell Distribution Width 15.2H, Platelet Count 235, Mean Platelet Volume 6.9, Neutrophils (%) (Auto) 77.5H, Lymphocytes (%) (Auto) 6.6L, Monocytes (%) (Auto) 14.0H, Eosinophils (%) (Auto) 0.6, Basophils (%) (Auto) 1.4, Sodium Level 144, Potassium Level 4.2, Chloride Level 94L, Carbon Dioxide Level 24, Anion Gap 26H, Blood Urea Nitrogen 78#H, Creatinine 8.6H, Estimat Glomerular Filtration Rate 7.6, Glucose Level 92, Uric Acid 5.6, Calcium Level 9.3, Phosphorus Level 8.2H, Total Bilirubin 0.9, Aspartate Amino Transf (AST/SGOT) 29, Alanine Aminotransferase (ALT/SGPT) 12, Alkaline Phosphatase 161H, C-Reactive Protein, Quantitative 20.4H, Pro-B-Type Natriuretic Peptide 78486H, Total Protein 8.5, Albumin 3.4L, Globulin 5.1, Albumin/Globulin Ratio 0.6L Height (Feet): 6 Height (Inches): 0.00 Weight (Pounds): 200 General Appearance: no apparent distress Objective other PE not changed SHILOH CABRAL Jan 14, 2017 13:25
--- NOTE | 2017-01-14 13:39 | Endoscopy Procedure Note ---
Endoscopy Procedure Note Indication for Procedure: dysphagia Procedures Performed: PEG Operative Findings/Diagnosis: GT placed Specimen: none Pt Tolerated Procedure Well: Yes Estimated Blood Loss: none Anesthesiologist: MELISSA Anesthesia: MAC Medication Given: see anesthesia record Implant(s) used?: No 50 yrs or older w/o bx or poly: Not Applicable 10yrs. F/U not recommended: Not Applicable If not recommended, why?: NANCY MORELOS Jan 14, 2017 13:39
--- NOTE | 2017-01-14 13:41 | Brief Operative Note ---
Immediate Post Operative Note Operative Note Chief Complaint: dysphagia Pre-op Diagnosis: dysphagia Procedure: PEG Post-op Diagnosis: PEG/dysphagia Surgeon: dominic Anesthesiologist: MELISSA Anesthesia: MAC Specimen: none Complications: none Condition: stable Estimated Blood Loss: none Drains: none Implant(s) used?: No NANCY MORELOS Jan 14, 2017 13:41
--- NOTE | 2017-01-14 13:49 | Immediate Post-Op Evaluation ---
Immediate Post-Op Evalulation Immediate Post-Op Evalulation Procedure: egd peg Date of Evaluation: Jan 14, 2017 Time of Evaluation: 13:40 IV Fluids: 100 Blood Pressure Systolic: 114 Blood Pressure Diastolic: 73 Pulse Rate: 60 Respiratory Rate: 14 O2 Sat by Pulse Oximetry: 97 Temperature (Fahrenheit): 97.8 Nausea: No Vomiting: No Complications NONE Patient Status: awake, reacts, patent Hydration Status: adequate Drug: ANCEF Given Within 1 Hr of Incision: Yes Time Given: 13:10 ENRIQUE GILES CRNA Jan 14, 2017 13:49
--- NOTE | 2017-01-14 13:52 | Anethesia Preoperative Eval ---
Anesthesia Pre-op PMH/ROS General Date of Evaluation: Jan 14, 2017 Time of Evaluation: 13:05 Anesthesiologist: grover ASA Score: ASA 4 Mallampati Score Class I : Soft palate, uvula, fauces, pillars visible Class II: Soft palate, uvula, fauces visible Class III: Soft palate, base of uvula visible Class IV: Only hard plate visible Mallampati Classification: Class III Surgeon: Sohan Diagnosis: Dysphagia Surgical Procedure: EGD PEG placement Anesthesia History: none Family History: no anesthesia problems Allergies: Coded Allergies: No Known Allergies (Verified , 03/31/11) Medications: see eMAR Past Medical History Cardiovascular: Reports: HTN Pulmonary: Denies: COPD, JOSEPH, asthma, other Gastrointestinal/Genitourinary: Reports: ESRD Neurologic/Psychiatric: Reports: CVA, dementia Endocrine: Reports: DM HEENT: Denies: EKUK (L), EKUK (R), cataract (L), cataract (R), glaucoma, other Hematology/Immune: Reports: anemia Musculoskeletal/Integumentary: Denies: DDD, DJD, OA, RA, edema, other PSxH Narrative: unknown Anesthesia Pre-op Phys. Exam Physician Exam Last Vital Signs Date Time Temp Pulse Resp B/P Pulse Ox O2 Delivery O2 Flow Rate FiO2 01/14/17 12:00 97.7 72 20 113/55 100 Room Air 01/14/17 09:00 2.0 28 Constitutional: NAD Neurologic: other - responses to name/pain Cardiovascular: RRR Respiratory: CTA Gastrointestinal: S/NT/ND Airway Exam Mallampati Score: Class III MO: limited Neck: thick ROM: limited Dentures: no lower, no upper Anesthesia Pre-op A/P Labs Hematology Test 01/14/17 05:30 White Blood Count 14.4 K/UL (4.8-10.8) H Red Blood Count 3.11 M/UL (4.70-6.10) L Hemoglobin 9.2 G/DL (14.2-18.0) L Hematocrit 30.0 % (42.0-52.0) L Mean Corpuscular Volume 97 FL (80-99) Mean Corpuscular Hemoglobin 29.8 PG (27.0-31.0) Mean Corpuscular Hemoglobin Concent 30.8 G/DL (32.0-36.0) L Red Cell Distribution Width 15.2 % (11.6-14.8) H Platelet Count 235 K/UL (150-450) Mean Platelet Volume 6.9 FL (6.5-10.1) Neutrophils (%) (Auto) 77.5 % (45.0-75.0) H Lymphocytes (%) (Auto) 6.6 % (20.0-45.0) L Monocytes (%) (Auto) 14.0 % (1.0-10.0) H Eosinophils (%) (Auto) 0.6 % (0.0-3.0) Basophils (%) (Auto) 1.4 % (0.0-2.0) Chemistry Test 01/14/17 05:30 Sodium Level 144 mEQ/L (135-145) Potassium Level 4.2 mEQ/L (3.4-4.9) Chloride Level 94 mEQ/L (98-107) L Carbon Dioxide Level 24 mEQ/L (20-30) Anion Gap 26 (5-15) H Blood Urea Nitrogen 78 mg/dL (7-23) #H Creatinine 8.6 mg/dL (0.7-1.2) H Estimat Glomerular Filtration Rate 7.6 mL/min (>60) Glucose Level 92 mg/dL (74-106) Uric Acid 5.6 mg/dL (3.0-7.5) Calcium Level 9.3 mg/dL (8.6-10.2) Phosphorus Level 8.2 mg/dL (2.5-4.8) H Total Bilirubin 0.9 mg/dL (0.0-1.2) Aspartate Amino Transf (AST/SGOT) 29 U/L (5-40) Alanine Aminotransferase (ALT/SGPT) 12 U/L (3-41) Alkaline Phosphatase 161 U/L (40-129) H C-Reactive Protein, Quantitative 20.4 mg/dL (< 0.5) H Pro-B-Type Natriuretic Peptide 32556 pg/mL (0-125) H Total Protein 8.5 g/dL (6.6-8.7) Albumin 3.4 g/dL (3.5-5.2) L Globulin 5.1 g/dL Albumin/Globulin Ratio 0.6 (1.0-2.7) L Studies Pre-op Studies: EKG - SR Risk Assessment & Plan Plan: mac Status Change Before Surgery: No Pre-Antibiotics Drug: ancef Given Within 1 Hr of Incision: Yes Time Given: 13:10 ENRIQUE GILES CRNA Jan 14, 2017 13:52
--- NOTE | 2017-01-14 13:55 | 48 Hour Post Anesthesia Eval ---
Post Anesthesia Evaluation Procedure: egd peg Date of Evaluation: Jan 14, 2017 Time of Evaluation: 13:55 Blood Pressure Systolic: 115 0: 70 Pulse Rate: 65 Respiratory Rate: 15 O2 Sat by Pulse Oximetry: 97 Airway: patent Nausea: No Vomiting: No Hydration Status: adequate Mental Status/LOC: patient returned to baseline Post-Anesthesia Complications: none Follow-up care needed: N/A ENRIQUE GILES CRNA Jan 14, 2017 13:55
[2017-01-14] MEDS: Lactulose 20gm/30ml UDC ORAL SCH (18:02)
[2017-01-14] MEDS: Renvela 800mg Pkt ORAL SCH (18:02)
[2017-01-14] MEDS: TraZODone 50mg tab ORAL SCH (20:23)
[2017-01-15] VITALS (8 sets, daily range): BP systolic 92–142; BP diastolic 52–79
[2017-01-15] MEDS: HydrALAZINE 50mg tab ORAL SCH ×3 (05:24→21:40)
[2017-01-15 07:17] LABS: ALBUMIN/GLOBULIN RATIO 0.5 (1.0-2.7); CALCIUM 9.1 mg/dL (8.6-10.2); CRP QUANT 17.6 mg/dL (< 0.5); GLOMERULAR FILTRATION RATE 5.7 mL/min (>60); MAGNESIUM 2.4 mg/dL (1.7-2.5); PHOSPHORUS 8.2 mg/dL (2.5-4.8); POTASSIUM 3.8 mEQ/L (3.4-4.9); TOTAL PROTEIN 7.5 g/dL (6.6-8.7); URIC ACID 7.6 mg/dL (3.0-7.5)
[2017-01-15 07:23] LABS: MEAN CORPUSCULAR HEMOGLOBIN 30.1 PG (27.0-31.0); MEAN CORPUSCULAR HGB CONC 31.1 G/DL (32.0-36.0); MEAN CORPUSCULAR VOLUME 97 FL (80-99); MEAN PLATELET VOLUME 6.6 FL (6.5-10.1); PLATELET COUNT 237 K/UL (150-450); RED BLOOD COUNT 2.64 M/UL (4.70-6.10); RED CELL DISTRIBUTION WIDTH 14.8 % (11.6-14.8)
[2017-01-15] MEDS: Heparin 5000 units/ml inj SUBQ SCH ×2 (08:35→21:44)
[2017-01-15] MEDS: Valproic Acid 250mg/5ml Liquid GT SCH ×2 (08:36→21:39)
[2017-01-15] MEDS: Aspirin Baby 81mg NG SCH (08:36)
[2017-01-15] MEDS: Labetalol 200mg tab ORAL SCH ×2 (08:36→21:00)
[2017-01-15] MEDS: Lactulose 20gm/30ml UDC ORAL SCH ×3 (08:36→17:02)
[2017-01-15] MEDS: Renvela 800mg Pkt ORAL SCH ×3 (08:37→17:02)
[2017-01-15] MEDS: levETIRAcetam 500mg/5ml Liquid NG SCH ×2 (08:37→21:38)
[2017-01-15] MEDS: Vitamin A&D Oint 2oz Tube TOPIC SCH ×2 (08:38→21:39)
[2017-01-15 09:24] LABS: ANISOCYTOSIS 1+; BAND NEUTROPHILS % (MANUAL) 0 % (0-8); BASOPHILS % (MANUAL) 0 % (0-2); EOSINOPHILS % (MANUAL) 0 % (0-3); HYPOCHROMASIA 1+; LYMPHOCYTES % (MANUAL) 5 % (20-45); NEUTROPHILS % (MANUAL) 81 % (45-75); PLATELET ESTIMATE ADEQUATE; PLATELET MORPHOLOGY NORMAL; TOTAL CELLS COUNTED 100
[2017-01-15] MEDS ORDERED: NS 275ml ONE (10:03)
[2017-01-15] MEDS ORDERED: Sterile Water Irrig 1000ml IRRIG ONE (10:03)
[2017-01-15] MEDS ORDERED: Tubing IV Secondary IV ONE (10:03)
--- NOTE | 2017-01-15 10:55 | General Progress Note ---
Assessment/Plan Status: stable Status Narrative dialysed this morning Assessment/Plan status: ESRD next HD 08/15, in process HyperKalemia- resolved after HD HTN DM Dementia CVA Sz disorder Plan; HD done 12/15 Phos binders per consultants Subjective ROS Limited/Unobtainable: No Allergies: Coded Allergies: No Known Allergies (Verified , 03/31/11) Objective Last 24 Hour Vital Signs Date Time Temp Pulse Resp B/P Pulse Ox O2 Delivery O2 Flow Rate FiO2 01/15/17 08:37 90 137/69 01/15/17 08:36 90 137/69 01/15/17 08:24 Room Air 01/15/17 08:22 97.5 90 21 137/69 96 Room Air 01/15/17 08:02 97.4 95 20 142/62 95 Room Air 01/15/17 06:58 94 Room Air 01/15/17 06:57 Room Air 01/15/17 06:56 91 18 Room Air 01/15/17 05:24 128/79 01/15/17 04:35 Room Air 01/15/17 04:31 97.9 82 18 128/79 95 Room Air 01/15/17 04:30 97.0 72 22 133/72 96 Room Air 01/15/17 00:16 98.1 80 19 130/70 98 Room Air 01/14/17 22:00 129/58 01/14/17 20:40 97.7 72 18 129/58 97 Room Air 01/14/17 20:23 72 129/58 01/14/17 18:46 76 18 Room Air 01/14/17 18:46 Room Air 01/14/17 18:46 97 Room Air 01/14/17 16:00 97.9 76 20 103/56 97 Room Air 01/14/17 14:41 112/64 01/14/17 14:30 97.8 76 18 115/63 98 Nasal Cannula 2.0 01/14/17 14:20 75 17 114/65 98 Nasal Cannula 2.0 01/14/17 14:10 74 16 112/64 98 Nasal Cannula 2.0 01/14/17 14:00 75 15 108/60 98 Nasal Cannula 2.0 01/14/17 13:55 65 15 97 01/14/17 13:50 74 16 106/60 99 Simple Mask 6.0 01/14/17 13:49 60 14 97 01/14/17 13:45 76 17 105/62 99 Simple Mask 6.0 01/14/17 13:40 97.8 75 15 108/62 99 Simple Mask 6.0 01/14/17 12:00 97.7 72 20 113/55 100 Room Air Intake and Output 01/14/17 01/15/17 18:59 06:59 Intake Total 100 ml Output Total 710 ml 100 ml Balance -610 ml -100 ml Intake IV Total 100 ml Output Urine Total 710 ml 100 ml # Voids 5 Laboratory Tests 01/15/17 05:00: White Blood Count 16.0H, Red Blood Count 2.64L, Hemoglobin 7.9L, Hematocrit 25.5L, Mean Corpuscular Volume 97, Mean Corpuscular Hemoglobin 30.1, Mean Corpuscular Hemoglobin Concent 31.1L, Red Cell Distribution Width 14.8, Platelet Count 237, Mean Platelet Volume 6.6, Neutrophils (%) (Auto) , Lymphocytes (%) (Auto) , Monocytes (%) (Auto) , Eosinophils (%) (Auto) , Basophils (%) (Auto) , Differential Total Cells Counted 100, Neutrophils % ( Manual) 81H, Lymphocytes % (Manual) 5L, Monocytes % (Manual) 14H, Eosinophils % (Manual) 0, Basophils % (Manual) 0, Band Neutrophils 0, Platelet Estimate Adequate, Platelet Morphology Normal, Hypochromasia 1+, Anisocytosis 1+, Sodium Level 143, Potassium Level 3.8, Chloride Level 93L, Carbon Dioxide Level 21, Anion Gap 29H, Blood Urea Nitrogen 107#H, Creatinine 11.0H, Estimat Glomerular Filtration Rate 5.7, Glucose Level 116H, Uric Acid 7.6H, Calcium Level 9.1, Phosphorus Level 8.2H, Magnesium Level 2.4, Total Bilirubin 0.7, Aspartate Amino Transf (AST/SGOT) 22, Alanine Aminotransferase (ALT/SGPT) 9, Alkaline Phosphatase 95, C-Reactive Protein, Quantitative 17.6H, Pro-B-Type Natriuretic Peptide 8780H, Total Protein 7.5, Albumin 2.8L, Globulin 4.7, Albumin/Globulin Ratio 0.5L Height (Feet): 6 Height (Inches): 0.00 Weight (Pounds): 200 General Appearance: no apparent distress Cardiovascular: tachycardia Respiratory/Chest: decreased breath sounds Abdomen: soft Objective other PE not changed SHILOH CABRAL Jan 15, 2017 10:55
--- NOTE | 2017-01-15 14:07 | Pulmonology Progress Note ---
Assessment/Plan Assessment/Plan ASSESSMENT acute hyperkalemia ESRD, on HD anemia of chronic renal disease acute hepatic encephalopathy possible sepsis leukocytosis UTI/E coli PNA ( R base ) HTN seizure disorder hx of CVA L heel decub st 4, POA Bilateral heel and right lateral ankle with stage 1 pressure ulcer Right foot with blister at the plantar medial forefoot functional quadriplegia dysphagia s/p EGD and PEG placement 01/14 PLAN OF CARE MS floor O2 HHN prn abx , urine cx + E coli, sputum cx if able , blood cx ID consult fup CXR with some improvement , initial CXR with R base infiltrate however leukocytosis trending up anemia workup noted, stable iron, anemia of chronic renal disease monitor HH, stool OB, transfuse prn, goal to keep Hgb above 7 ? add EPO-per nephro discretion HD as per nephro monitor renal parameters, lytes; avoid nephrotoxic hyperkalemia resolved BP management with CCB, Hydralazine on lactulose, check ammonia in am seizure precautions, continue Depakote and Keppra PT/OT failed swallow eval GI follows s/p EGD and PEG 01/14 strict aspiration precautions GT feeding as per GI, monitor tolerance wound care as per wound nurse recommendation three knife trimmer eval appreciated , fup with three knife trimmer recommendations DVT prophylaxis SS eval for placement case discussed and evaluated by supervising physician Subjective Allergies: Coded Allergies: No Known Allergies (Verified , 03/31/11) Subjective leukocytosis trending up, afebrile on RA sat stable no signs of respiratory distress HH down to 7.9/25.5 Objective Last 24 Hour Vital Signs Date Time Temp Pulse Resp B/P Pulse Ox O2 Delivery O2 Flow Rate FiO2 01/15/17 13:42 103/51 01/15/17 12:00 98.0 86 18 100/60 96 Room Air 01/15/17 08:37 90 137/69 01/15/17 08:36 90 137/69 01/15/17 08:24 Room Air 01/15/17 08:22 97.5 90 21 137/69 96 Room Air 01/15/17 08:02 97.4 95 20 142/62 95 Room Air 01/15/17 06:58 94 Room Air 01/15/17 06:57 Room Air 01/15/17 06:56 91 18 Room Air 01/15/17 05:24 128/79 01/15/17 04:35 Room Air 01/15/17 04:31 97.9 82 18 128/79 95 Room Air 01/15/17 04:30 97.0 72 22 133/72 96 Room Air 01/15/17 00:16 98.1 80 19 130/70 98 Room Air 01/14/17 22:00 129/58 01/14/17 20:40 97.7 72 18 129/58 97 Room Air 01/14/17 20:23 72 129/58 01/14/17 18:46 76 18 Room Air 01/14/17 18:46 Room Air 01/14/17 18:46 97 Room Air 01/14/17 16:00 97.9 76 20 103/56 97 Room Air 01/14/17 14:41 112/64 01/14/17 14:30 97.8 76 18 115/63 98 Nasal Cannula 2.0 01/14/17 14:20 75 17 114/65 98 Nasal Cannula 2.0 01/14/17 14:10 74 16 112/64 98 Nasal Cannula 2.0 Intake and Output 01/14/17 01/15/17 18:59 06:59 Intake Total 100 ml Output Total 710 ml 100 ml Balance -610 ml -100 ml Intake IV Total 100 ml Output Urine Total 710 ml 100 ml # Voids 5 Objective General Appearance: no acute distress, bedridden, poorly responsive male in NAD HEENT: normocephalic, atraumatic, anicteric, Respiratory/Chest: lungs clear - with moderate air entry , no accessory muscle use Cardiovascular: normal rate, regular rhythm, no JVD Abdomen: normal bowel sounds, soft, non tender, non distended, G tube Extremities: no edema, pedal pulses normal Neurologic/Psychiatric: abnormal gait - bedridden , other - spastic LE, eyes open, poorly responsive AA male Musculoskeletal: atrophy - BLE Laboratory Tests 01/15/17 05:00: White Blood Count 16.0H, Red Blood Count 2.64L, Hemoglobin 7.9L, Hematocrit 25.5L, Mean Corpuscular Volume 97, Mean Corpuscular Hemoglobin 30.1, Mean Corpuscular Hemoglobin Concent 31.1L, Red Cell Distribution Width 14.8, Platelet Count 237, Mean Platelet Volume 6.6, Neutrophils (%) (Auto) , Lymphocytes (%) (Auto) , Monocytes (%) (Auto) , Eosinophils (%) (Auto) , Basophils (%) (Auto) , Differential Total Cells Counted 100, Neutrophils % ( Manual) 81H, Lymphocytes % (Manual) 5L, Monocytes % (Manual) 14H, Eosinophils % (Manual) 0, Basophils % (Manual) 0, Band Neutrophils 0, Platelet Estimate Adequate, Platelet Morphology Normal, Hypochromasia 1+, Anisocytosis 1+, Sodium Level 143, Potassium Level 3.8, Chloride Level 93L, Carbon Dioxide Level 21, Anion Gap 29H, Blood Urea Nitrogen 107#H, Creatinine 11.0H, Estimat Glomerular Filtration Rate 5.7, Glucose Level 116H, Uric Acid 7.6H, Calcium Level 9.1, Phosphorus Level 8.2H, Magnesium Level 2.4, Total Bilirubin 0.7, Aspartate Amino Transf (AST/SGOT) 22, Alanine Aminotransferase (ALT/SGPT) 9, Alkaline Phosphatase 95, C-Reactive Protein, Quantitative 17.6H, Pro-B-Type Natriuretic Peptide 8780H, Total Protein 7.5, Albumin 2.8L, Globulin 4.7, Albumin/Globulin Ratio 0.5L Current Medications Medications (Trade) Dose Ordered Sig/Tracy Route PRN Reason Start Time Stop Time Status Last Admin Dose Admin Acetaminophen (Tylenol) 650 mg Q4H PRN ORAL T>100.5 01/13/17 18:45 02/12/17 18:44 Albuterol/ Ipratropium (DuoNeb 0.5-3(2.5)mg/3ml) 3 ml Q6H PRN HHN Shortness of Breath 01/13/17 20:45 01/18/17 20:44 Amlodipine Besylate (Norvasc) 10 mg DAILY ORAL 01/14/17 09:00 02/13/17 08:59 01/15/17 08:37 Aspirin (ASA) 81 mg DAILY NG 01/14/17 09:00 02/13/17 08:59 01/15/17 08:36 Clonidine HCl (Catapres) 0.1 mg Q4H PRN ORAL SBP>160 01/13/17 18:45 02/12/17 18:44 Heparin Sodium (Porcine) (Heparin 5000 units/ml) 5,000 units EVERY 12 HOURS SUBQ 01/13/17 21:00 02/12/17 20:59 01/15/17 08:35 Hydralazine HCl (Apresoline) 50 mg EVERY 8 HOURS ORAL 01/13/17 22:00 02/12/17 21:59 01/15/17 13:42 Labetalol HCl (Normodyne) 200 mg EVERY 12 HOURS ORAL 01/13/17 21:00 02/12/17 20:59 01/15/17 08:36 Lactulose (Cephulac) 30 gm THREE TIMES A DAY ORAL 01/14/17 18:00 02/13/17 17:59 01/15/17 12:29 Levetiracetam (Keppra) 500 mg Q12HR NG 01/13/17 21:00 02/12/17 20:59 01/15/17 08:37 Morphine Sulfate (Morphine Sulfate) 1 mg Q4H PRN IVP PAIN 4-10 01/13/17 18:45 01/20/17 18:44 Ondansetron HCl (Zofran) 4 mg Q6H PRN IVP Nausea & Vomiting 01/13/17 20:45 02/12/17 20:44 Polyethylene Glycol (Miralax) 17 gm HSPRN PRN ORAL Constipation 01/13/17 21:00 02/12/17 20:59 Sevelamer Carbonate (Renvela) 2,400 mg THREE TIMES A DAY ORAL 01/14/17 18:00 02/13/17 17:59 01/15/17 12:09 Trazodone HCl (Desyrel) 50 mg BEDTIME ORAL 01/13/17 21:00 02/12/17 20:59 01/14/17 20:23 Valproic Acid (Depakene) 250 mg Q12HR GT 01/13/17 21:00 02/12/17 20:59 01/15/17 08:36 Vitamin A/Vitamin D (A & D Oint) 1 applic EVERY 12 HOURS TOPIC 01/13/17 21:00 02/12/17 20:59 01/15/17 08:38 Zolpidem Tartrate (Ambien) 5 mg HSPRN PRN ORAL Insomnia 01/13/17 21:00 02/12/17 20:59 Ana Partida NP (Vanchtein) Jan 15, 2017 14:07
[2017-01-15] MEDS: TraZODone 50mg tab ORAL SCH (21:38)
[2017-01-15] MEDS: Pantoprazole Inj IVP SCH (21:49)
[2017-01-16] VITALS (7 sets, daily range): BP systolic 105–169; BP diastolic 46–64
[2017-01-16] MEDS: HydrALAZINE 50mg tab ORAL SCH ×3 (05:29→21:11)
[2017-01-16 07:13] LABS: MEAN CORPUSCULAR HEMOGLOBIN 30.9 PG (27.0-31.0); MEAN CORPUSCULAR HGB CONC 31.5 G/DL (32.0-36.0); MEAN CORPUSCULAR VOLUME 98 FL (80-99); MEAN PLATELET VOLUME 7.1 FL (6.5-10.1); PLATELET COUNT 307 K/UL (150-450); RED BLOOD COUNT 2.65 M/UL (4.70-6.10); RED CELL DISTRIBUTION WIDTH 14.3 % (11.6-14.8); WHITE BLOOD COUNT 20.8 K/UL (4.8-10.8)
[2017-01-16 07:35] LABS: CALCIUM 9.6 mg/dL (8.6-10.2); CREATININE 7.7 mg/dL (0.7-1.2); GLOMERULAR FILTRATION RATE 8.6 mL/min (>60); POTASSIUM 3.4 mEQ/L (3.4-4.9)
[2017-01-16] MEDS: Heparin 5000 units/ml inj SUBQ SCH ×2 (08:25→21:19)
[2017-01-16 08:37] LABS: ANISOCYTOSIS 1+; BAND NEUTROPHILS % (MANUAL) 1 % (0-8); BASOPHILS % (MANUAL) 0 % (0-2); EOSINOPHILS % (MANUAL) 2 % (0-3); HYPOCHROMASIA 2+; LYMPHOCYTES % (MANUAL) 11 % (20-45); METAMYELOCYTES % 5 % (0-0); MYELOCYTES % 1 % (0-0); NEUTROPHILS % (MANUAL) 67 % (45-75); PLATELET ESTIMATE ADEQUATE; PLATELET MORPHOLOGY NORMAL; TOTAL CELLS COUNTED 100
[2017-01-16] MEDS: Renvela 800mg Pkt ORAL SCH ×3 (08:54→17:34)
[2017-01-16] MEDS: Lactulose 20gm/30ml UDC ORAL SCH ×3 (08:54→17:17)
[2017-01-16] MEDS: Valproic Acid 250mg/5ml Liquid GT SCH ×2 (08:54→21:13)
[2017-01-16] MEDS: Labetalol 200mg tab ORAL SCH ×2 (08:55→21:12)
[2017-01-16] MEDS: levETIRAcetam 500mg/5ml Liquid NG SCH ×2 (08:55→21:13)
[2017-01-16] MEDS: Aspirin Baby 81mg NG SCH (08:55)
[2017-01-16] MEDS: Pantoprazole Inj IVP SCH (08:55)
[2017-01-16] MEDS: Vitamin A&D Oint 2oz Tube TOPIC SCH ×2 (08:56→21:14)
[2017-01-16] MEDS ORDERED: Piperacillin/Tazobactam 3.375 GM in D5W 110 ML IVPB SCH (09:45)
--- NOTE | 2017-01-16 11:31 | Diagnostic Imaging Report ---
Indication: Shortness of breath Technique: XRAY CHEST 1 V. Comparison: 01/14/2017 Findings: The cardiomediastinal silhouette is unchanged. No new infiltrates are identified. Patchy right basilar infiltrate remains. Impression: Patchy right basilar infiltrate essentially unchanged. No significant change from prior examination.
--- NOTE | 2017-01-16 11:32 | Infectious Diseases Prog Note ---
Assessment/Plan Assessment/Plan ID laron dictated # [id number] Subjective Allergies: Coded Allergies: No Known Allergies (Verified , 03/31/11) Objective Vital Signs Last 24 Hour Vital Signs Date Time Temp Pulse Resp B/P Pulse Ox O2 Delivery O2 Flow Rate FiO2 01/16/17 10:51 86 16 Room Air 01/16/17 08:55 83 123/60 01/16/17 08:55 83 123/60 01/16/17 08:00 97.7 83 20 123/60 97 Room Air 01/16/17 05:29 119/61 01/16/17 04:00 97.9 77 20 119/61 100 Room Air 01/16/17 00:00 97.9 79 18 105/55 99 Room Air 01/15/17 21:40 100/50 01/15/17 21:00 77 100/50 01/15/17 20:00 97.0 77 20 102/53 98 Room Air 01/15/17 19:22 70 18 Room Air 01/15/17 19:22 96 Room Air 01/15/17 19:22 Room Air 01/15/17 16:00 98.0 58 17 92/52 94 Room Air 01/15/17 13:42 103/51 01/15/17 12:00 98.0 86 18 100/60 96 Room Air Height (Feet): 6 Height (Inches): 0.00 Weight (Pounds): 200 Microbiology Date/Time Source Procedure Growth Status 01/15/17 15:00 Sputum Induced Gram Stain Pending Resulted 01/15/17 15:00 Sputum Culture - Preliminary Gram Negative Azael Resulted Laboratory Tests Test 01/16/17 05:15 White Blood Count 20.8 K/UL (4.8-10.8) H Red Blood Count 2.65 M/UL (4.70-6.10) L Hemoglobin 8.2 G/DL (14.2-18.0) L Hematocrit 26.0 % (42.0-52.0) L Mean Corpuscular Volume 98 FL (80-99) Mean Corpuscular Hemoglobin 30.9 PG (27.0-31.0) Mean Corpuscular Hemoglobin Concent 31.5 G/DL (32.0-36.0) L Red Cell Distribution Width 14.3 % (11.6-14.8) Platelet Count 307 K/UL (150-450) Mean Platelet Volume 7.1 FL (6.5-10.1) Neutrophils (%) (Auto) % (45.0-75.0) Lymphocytes (%) (Auto) % (20.0-45.0) Monocytes (%) (Auto) % (1.0-10.0) Eosinophils (%) (Auto) % (0.0-3.0) Basophils (%) (Auto) % (0.0-2.0) Differential Total Cells Counted 100 Neutrophils % (Manual) 67 % (45-75) Lymphocytes % (Manual) 11 % (20-45) L Monocytes % (Manual) 13 % (1-10) H Eosinophils % (Manual) 2 % (0-3) Basophils % (Manual) 0 % (0-2) Metamyelocytes % 5 % (0-0) H Myelocytes % 1 % (0-0) H Band Neutrophils 1 % (0-8) Platelet Estimate Adequate Platelet Morphology Normal Hypochromasia 2+ Anisocytosis 1+ Sodium Level 141 mEQ/L (135-145) Potassium Level 3.4 mEQ/L (3.4-4.9) Chloride Level 87 mEQ/L (98-107) L Carbon Dioxide Level 27 mEQ/L (20-30) Anion Gap 27 (5-15) H Blood Urea Nitrogen 76 mg/dL (7-23) #H Creatinine 7.7 mg/dL (0.7-1.2) H Estimat Glomerular Filtration Rate 8.6 mL/min (>60) Glucose Level 114 mg/dL (74-106) H Calcium Level 9.6 mg/dL (8.6-10.2) Ammonia 12 umol/L (16-60) L Current Medications Medications (Trade) Dose Ordered Sig/Tracy Route PRN Reason Start Time Stop Time Status Last Admin Dose Admin Acetaminophen (Tylenol) 650 mg Q4H PRN ORAL T>100.5 01/13/17 18:45 02/12/17 18:44 Albuterol/ Ipratropium (DuoNeb 0.5-3(2.5)mg/3ml) 3 ml Q6H PRN HHN Shortness of Breath 01/13/17 20:45 01/18/17 20:44 Amlodipine Besylate (Norvasc) 10 mg DAILY ORAL 01/14/17 09:00 02/13/17 08:59 01/16/17 08:55 Aspirin (ASA) 81 mg DAILY NG 01/14/17 09:00 02/13/17 08:59 01/16/17 08:55 Clonidine HCl (Catapres) 0.1 mg Q4H PRN ORAL SBP>160 01/13/17 18:45 02/12/17 18:44 Heparin Sodium (Porcine) (Heparin 5000 units/ml) 5,000 units EVERY 12 HOURS SUBQ 01/13/17 21:00 02/12/17 20:59 01/15/17 21:44 Hydralazine HCl (Apresoline) 50 mg EVERY 8 HOURS ORAL 01/13/17 22:00 02/12/17 21:59 01/16/17 05:29 Labetalol HCl (Normodyne) 200 mg EVERY 12 HOURS ORAL 01/13/17 21:00 02/12/17 20:59 01/15/17 21:00 Lactulose (Cephulac) 30 gm THREE TIMES A DAY ORAL 01/14/17 18:00 02/13/17 17:59 01/16/17 08:54 Levetiracetam (Keppra) 500 mg Q12HR NG 01/13/17 21:00 02/12/17 20:59 01/16/17 08:55 Morphine Sulfate (Morphine Sulfate) 1 mg Q4H PRN IVP PAIN 4-10 01/13/17 18:45 01/20/17 18:44 Ondansetron HCl (Zofran) 4 mg Q6H PRN IVP Nausea & Vomiting 01/13/17 20:45 02/12/17 20:44 Pantoprazole 40 mg 40 mg DAILY IVP 01/15/17 21:00 02/14/17 20:59 01/16/17 08:55 Piperacillin Sod/ Tazobactam Sod/ Sodium Chloride (Zosyn/Sodium Chloride) 55 ml @ 110 mls/hr Q8HR IV 01/16/17 11:30 01/21/17 11:29 Polyethylene Glycol (Miralax) 17 gm HSPRN PRN ORAL Constipation 01/13/17 21:00 02/12/17 20:59 Sevelamer Carbonate (Renvela) 2,400 mg THREE TIMES A DAY ORAL 01/14/17 18:00 02/13/17 17:59 01/16/17 08:54 Trazodone HCl (Desyrel) 50 mg BEDTIME ORAL 01/13/17 21:00 02/12/17 20:59 01/15/17 21:38 Valproic Acid (Depakene) 250 mg Q12HR GT 01/13/17 21:00 02/12/17 20:59 01/16/17 08:54 Vitamin A/Vitamin D (A & D Oint) 1 applic EVERY 12 HOURS TOPIC 01/13/17 21:00 02/12/17 20:59 01/16/17 08:56 Zolpidem Tartrate (Ambien) 5 mg HSPRN PRN ORAL Insomnia 01/13/17 21:00 02/12/17 20:59 ABDIRAHMAN MENDIETA Jan 16, 2017 11:32
[2017-01-16] MEDS: Piperacillin/Tazobactam 2.25 GM in NS 55 ML IV SCH ×2 (11:53→21:14)
--- NOTE | 2017-01-16 13:04 | Pulmonology Progress Note ---
Assessment/Plan Assessment/Plan ASSESSMENT acute hyperkalemia-resolved ESRD, on HD anemia of chronic renal disease acute hepatic encephalopathy-resolved possible sepsis leukocytosis UTI/E coli PNA ( R base ) HTN seizure disorder hx of CVA L heel decub st 4, POA Bilateral heel and right lateral ankle with stage 1 pressure ulcer Right foot with blister at the plantar medial forefoot functional quadriplegia dysphagia s/p EGD and PEG placement 01/14 PLAN OF CARE MS floor O2 HHN prn abx , urine cx + E coli, sputum cx +GNR, blood cx ID consult appreciated fup CXR today -Patchy right basilar infiltrate essentially unchanged. initial CXR with R base infiltrate anemia workup noted, stable iron, anemia of chronic renal disease monitor HH, stool OB, transfuse prn, goal to keep Hgb above 7 ? add EPO-per nephro discretion HD as per nephro monitor renal parameters, lytes; avoid nephrotoxic hyperkalemia resolved BP management with CCB, Hydralazine on lactulose, ammonia -12 ? dc ammonia - as per GI discretion seizure precautions, continue Depakote and Keppra PT/OT failed swallow eval GI follows s/p EGD and PEG 01/14 strict aspiration precautions GT feeding as per GI, monitor tolerance wound care as per wound nurse recommendation wild oyster harvester eval appreciated , fup with wild oyster harvester recommendations DVT prophylaxis SS eval for placement case discussed and evaluated by supervising physician Subjective Allergies: Coded Allergies: No Known Allergies (Verified , 03/31/11) Subjective leukocytosis trending up, afebrile on RA sat stable no signs of respiratory distress HH slightly better at the bedside Objective Last 24 Hour Vital Signs Date Time Temp Pulse Resp B/P Pulse Ox O2 Delivery O2 Flow Rate FiO2 01/16/17 10:51 86 16 Room Air 01/16/17 08:55 83 123/60 01/16/17 08:55 83 123/60 01/16/17 08:00 97.7 83 20 123/60 97 Room Air 01/16/17 05:29 119/61 01/16/17 04:00 97.9 77 20 119/61 100 Room Air 01/16/17 00:00 97.9 79 18 105/55 99 Room Air 01/15/17 21:40 100/50 01/15/17 21:00 77 100/50 01/15/17 20:00 97.0 77 20 102/53 98 Room Air 01/15/17 19:22 70 18 Room Air 01/15/17 19:22 96 Room Air 01/15/17 19:22 Room Air 01/15/17 16:00 98.0 58 17 92/52 94 Room Air 01/15/17 13:42 103/51 Intake and Output 01/15/17 01/16/17 19:00 07:00 Intake Total 190 ml Output Total 2450 ml 150 ml Balance -2450 ml 40 ml Tube Feeding 190 ml Output Urine Total 150 ml 150 ml Hemodialysis UF 2300 ml # Bowel Movements 2 3 Objective General Appearance: no acute distress, bedridden, poorly responsive male in NAD HEENT: normocephalic, atraumatic, anicteric, Respiratory/Chest: lungs clear - with moderate air entry , no accessory muscle use Cardiovascular: normal rate, regular rhythm, no JVD Abdomen: normal bowel sounds, soft, non tender, non distended, G tube Extremities: no edema, pedal pulses normal Neurologic/Psychiatric: abnormal gait - bedridden , spastic LE, eyes open, poorly responsive AA male Musculoskeletal: atrophy - BLE Microbiology Date/Time Source Procedure Growth Status 01/15/17 15:00 Sputum Induced Gram Stain - Final Resulted 01/15/17 15:00 Sputum Culture - Preliminary Gram Negative Azael Resulted Laboratory Tests 01/15/17 14:51: Stool Occult Blood Negative 01/16/17 05:15: White Blood Count 20.8H, Red Blood Count 2.65L, Hemoglobin 8.2L, Hematocrit 26.0L, Mean Corpuscular Volume 98, Mean Corpuscular Hemoglobin 30.9, Mean Corpuscular Hemoglobin Concent 31.5L, Red Cell Distribution Width 14.3, Platelet Count 307, Mean Platelet Volume 7.1, Neutrophils (%) (Auto) , Lymphocytes (%) (Auto) , Monocytes (%) (Auto) , Eosinophils (%) (Auto) , Basophils (%) (Auto) , Differential Total Cells Counted 100, Neutrophils % ( Manual) 67, Lymphocytes % (Manual) 11L, Monocytes % (Manual) 13H, Eosinophils % (Manual) 2, Basophils % (Manual) 0, Metamyelocytes % 5H, Myelocytes % 1H, Band Neutrophils 1, Platelet Estimate Adequate, Platelet Morphology Normal, Hypochromasia 2+, Anisocytosis 1+, Sodium Level 141, Potassium Level 3.4, Chloride Level 87L, Carbon Dioxide Level 27, Anion Gap 27H, Blood Urea Nitrogen 76#H, Creatinine 7.7H, Estimat Glomerular Filtration Rate 8.6, Glucose Level 114H, Calcium Level 9.6, Ammonia 12L Current Medications Medications (Trade) Dose Ordered Sig/Tracy Route PRN Reason Start Time Stop Time Status Last Admin Dose Admin Acetaminophen (Tylenol) 650 mg Q4H PRN ORAL T>100.5 01/13/17 18:45 02/12/17 18:44 Albuterol/ Ipratropium (DuoNeb 0.5-3(2.5)mg/3ml) 3 ml Q6H PRN HHN Shortness of Breath 01/13/17 20:45 01/18/17 20:44 Amlodipine Besylate (Norvasc) 10 mg DAILY ORAL 01/14/17 09:00 02/13/17 08:59 01/16/17 08:55 Aspirin (ASA) 81 mg DAILY NG 01/14/17 09:00 02/13/17 08:59 01/16/17 08:55 Clonidine HCl (Catapres) 0.1 mg Q4H PRN ORAL SBP>160 01/13/17 18:45 02/12/17 18:44 Heparin Sodium (Porcine) (Heparin 5000 units/ml) 5,000 units EVERY 12 HOURS SUBQ 01/13/17 21:00 02/12/17 20:59 01/15/17 21:44 Hydralazine HCl (Apresoline) 50 mg EVERY 8 HOURS ORAL 01/13/17 22:00 02/12/17 21:59 01/16/17 05:29 Labetalol HCl (Normodyne) 200 mg EVERY 12 HOURS ORAL 01/13/17 21:00 02/12/17 20:59 01/15/17 21:00 Lactulose (Cephulac) 30 gm THREE TIMES A DAY ORAL 01/14/17 18:00 02/13/17 17:59 01/16/17 08:54 Levetiracetam (Keppra) 500 mg Q12HR NG 01/13/17 21:00 02/12/17 20:59 01/16/17 08:55 Morphine Sulfate (Morphine Sulfate) 1 mg Q4H PRN IVP PAIN 4-10 01/13/17 18:45 01/20/17 18:44 Ondansetron HCl (Zofran) 4 mg Q6H PRN IVP Nausea & Vomiting 01/13/17 20:45 02/12/17 20:44 Pantoprazole 40 mg 40 mg DAILY IVP 01/15/17 21:00 02/14/17 20:59 01/16/17 08:55 Piperacillin Sod/ Tazobactam Sod/ Sodium Chloride (Zosyn/Sodium Chloride) 55 ml @ 110 mls/hr Q8HR IV 01/16/17 11:30 01/21/17 11:29 01/16/17 11:53 Polyethylene Glycol (Miralax) 17 gm HSPRN PRN ORAL Constipation 01/13/17 21:00 02/12/17 20:59 Sevelamer Carbonate (Renvela) 2,400 mg THREE TIMES A DAY ORAL 01/14/17 18:00 02/13/17 17:59 01/16/17 08:54 Trazodone HCl (Desyrel) 50 mg BEDTIME ORAL 01/13/17 21:00 02/12/17 20:59 01/15/17 21:38 Valproic Acid (Depakene) 250 mg Q12HR GT 01/13/17 21:00 02/12/17 20:59 01/16/17 08:54 Vitamin A/Vitamin D (A & D Oint) 1 applic EVERY 12 HOURS TOPIC 01/13/17 21:00 02/12/17 20:59 01/16/17 08:56 Zolpidem Tartrate (Ambien) 5 mg HSPRN PRN ORAL Insomnia 01/13/17 21:00 02/12/17 20:59 Jauqan Wilkerson)Ana NP Jan 16, 2017 13:04
[2017-01-16 14:27] LABS: APPEARANCE,URINE CLEAR; KETONES,URINE 1+ (NEGATIVE); LEUKOCYTE ESTERASE ,URINE 3+ (NEGATIVE); NITRITE,URINE NEGATIVE (NEGATIVE); PH,URINE 6 (4.5-8.0); PROTEIN,URINE 4+ (NEGATIVE); UROBILINOGEN,URINE NORMAL MG/DL (0.0-1.0)
[2017-01-16 14:46] LABS: BACTERIA,URINE MODERATE /HPF; RBC,URINE TNTC /HPF (0 - 0); SQUAMOUS EPITHELIAL CELL,UR OCCASIONAL /LPF (NONE/OCC); WBC,URINE TNTC /HPF (0 - 0)
[2017-01-16 14:53] LABS: ICTOTEST NEGATIVE
--- NOTE | 2017-01-16 15:09 | General Progress Note ---
Assessment/Plan Status: stable Status Narrative WBCs higher Assessment/Plan status: ESRD next HD 08/15, in process HyperKalemia- resolved after HD HTN DM Dementia CVA Sz disorder Plan; HD done 12/17 Phos binders per consultants Subjective ROS Limited/Unobtainable: No Constitutional: Reports: malaise, weakness Allergies: Coded Allergies: No Known Allergies (Verified , 03/31/11) Objective Last 24 Hour Vital Signs Date Time Temp Pulse Resp B/P Pulse Ox O2 Delivery O2 Flow Rate FiO2 01/16/17 12:00 97.7 78 21 139/53 94 Room Air 01/16/17 10:51 86 16 Room Air 01/16/17 08:55 83 123/60 01/16/17 08:55 83 123/60 01/16/17 08:00 97.7 83 20 123/60 97 Room Air 01/16/17 05:29 119/61 01/16/17 04:00 97.9 77 20 119/61 100 Room Air 01/16/17 00:00 97.9 79 18 105/55 99 Room Air 01/15/17 21:40 100/50 01/15/17 21:00 77 100/50 01/15/17 20:00 97.0 77 20 102/53 98 Room Air 01/15/17 19:22 70 18 Room Air 01/15/17 19:22 96 Room Air 01/15/17 19:22 Room Air 01/15/17 16:00 98.0 58 17 92/52 94 Room Air Intake and Output 01/15/17 01/16/17 19:00 07:00 Intake Total 190 ml Output Total 2450 ml 150 ml Balance -2450 ml 40 ml Tube Feeding 190 ml Output Urine Total 150 ml 150 ml Hemodialysis UF 2300 ml # Bowel Movements 2 3 Laboratory Tests 01/16/17 05:15: White Blood Count 20.8H, Red Blood Count 2.65L, Hemoglobin 8.2L, Hematocrit 26.0L, Mean Corpuscular Volume 98, Mean Corpuscular Hemoglobin 30.9, Mean Corpuscular Hemoglobin Concent 31.5L, Red Cell Distribution Width 14.3, Platelet Count 307, Mean Platelet Volume 7.1, Neutrophils (%) (Auto) , Lymphocytes (%) (Auto) , Monocytes (%) (Auto) , Eosinophils (%) (Auto) , Basophils (%) (Auto) , Differential Total Cells Counted 100, Neutrophils % ( Manual) 67, Lymphocytes % (Manual) 11L, Monocytes % (Manual) 13H, Eosinophils % (Manual) 2, Basophils % (Manual) 0, Metamyelocytes % 5H, Myelocytes % 1H, Band Neutrophils 1, Platelet Estimate Adequate, Platelet Morphology Normal, Hypochromasia 2+, Anisocytosis 1+, Sodium Level 141, Potassium Level 3.4, Chloride Level 87L, Carbon Dioxide Level 27, Anion Gap 27H, Blood Urea Nitrogen 76#H, Creatinine 7.7H, Estimat Glomerular Filtration Rate 8.6, Glucose Level 114H, Calcium Level 9.6, Ammonia 12L 01/16/17 14:00: Urine Color Brown, Urine Appearance Clear, Urine pH 6, Urine Specific [place] 1.010, Urine Protein 4+H, Urine Glucose (UA) Negative, Urine Ketones 1+H, Urine Occult Blood 5+H, Urine Nitrite Negative, Urine Bilirubin 1+H, Urine Ictotest Negative, Urine Urobilinogen Normal, Urine Leukocyte Esterase 3+H, Urine RBC TntcH, Urine WBC TntcH, Urine Squamous Epithelial Cells Occasional, Urine Bacteria ModerateH Height (Feet): 6 Height (Inches): 0.00 Weight (Pounds): 200 General Appearance: no apparent distress Objective other PE not changed SHILOH CABRAL Jan 16, 2017 15:09
[2017-01-16] MEDS: TraZODone 50mg tab ORAL SCH (21:12)
--- NOTE | 2017-01-16 21:26 | General Progress Note ---
Assessment/Plan Assessment/Plan Assessment - Anemia - rising WBC concerning - presumed due to cavitary lung masses seen on CT - CRF - dysphagia Recommendations - follow WBC - cavitary lung masses per pulmonary - check C diff - abx Subjective Allergies: Coded Allergies: No Known Allergies (Verified , 03/31/11) Subjective No events overnight tolerating TF rising WBC noted WBC rising prior to PEG insertion CT --> cavitary lung masses Objective Last 24 Hour Vital Signs Date Time Temp Pulse Resp B/P Pulse Ox O2 Delivery O2 Flow Rate FiO2 01/16/17 20:00 97.7 72 18 111/60 97 Room Air 01/16/17 19:37 91 18 Room Air 01/16/17 16:00 97.5 72 22 119/61 100 Room Air 01/16/17 15:10 139/53 01/16/17 12:00 97.7 78 21 139/53 94 Room Air 01/16/17 10:51 86 16 Room Air 01/16/17 08:55 83 123/60 01/16/17 08:55 83 123/60 01/16/17 08:00 97.7 83 20 123/60 97 Room Air 01/16/17 05:29 119/61 01/16/17 04:00 97.9 77 20 119/61 100 Room Air 01/16/17 00:00 97.9 79 18 105/55 99 Room Air 01/15/17 21:40 100/50 Intake and Output 01/15/17 01/16/17 19:00 07:00 Intake Total 190 ml Output Total 2450 ml 150 ml Balance -2450 ml 40 ml Tube Feeding 190 ml Output Urine Total 150 ml 150 ml Hemodialysis UF 2300 ml # Bowel Movements 2 3 Laboratory Tests 01/16/17 05:15: White Blood Count 20.8H, Red Blood Count 2.65L, Hemoglobin 8.2L, Hematocrit 26.0L, Mean Corpuscular Volume 98, Mean Corpuscular Hemoglobin 30.9, Mean Corpuscular Hemoglobin Concent 31.5L, Red Cell Distribution Width 14.3, Platelet Count 307, Mean Platelet Volume 7.1, Neutrophils (%) (Auto) , Lymphocytes (%) (Auto) , Monocytes (%) (Auto) , Eosinophils (%) (Auto) , Basophils (%) (Auto) , Differential Total Cells Counted 100, Neutrophils % ( Manual) 67, Lymphocytes % (Manual) 11L, Monocytes % (Manual) 13H, Eosinophils % (Manual) 2, Basophils % (Manual) 0, Metamyelocytes % 5H, Myelocytes % 1H, Band Neutrophils 1, Platelet Estimate Adequate, Platelet Morphology Normal, Hypochromasia 2+, Anisocytosis 1+, Sodium Level 141, Potassium Level 3.4, Chloride Level 87L, Carbon Dioxide Level 27, Anion Gap 27H, Blood Urea Nitrogen 76#H, Creatinine 7.7H, Estimat Glomerular Filtration Rate 8.6, Glucose Level 114H, Calcium Level 9.6, Ammonia 12L 01/16/17 14:00: Urine Color Brown, Urine Appearance Clear, Urine pH 6, Urine Specific [place] 1.010, Urine Protein 4+H, Urine Glucose (UA) Negative, Urine Ketones 1+H, Urine Occult Blood 5+H, Urine Nitrite Negative, Urine Bilirubin 1+H, Urine Ictotest Negative, Urine Urobilinogen Normal, Urine Leukocyte Esterase 3+H, Urine RBC TntcH, Urine WBC TntcH, Urine Squamous Epithelial Cells Occasional, Urine Bacteria ModerateH Height (Feet): 6 Height (Inches): 0.00 Weight (Pounds): 200 Objective WDWN confused NCAT supple CTA RRR Soft ND NT, GT site OK, no drainage No edema OBS NANCY MORELOS Jan 16, 2017 21:26
--- NOTE | 2017-01-16 23:38 | Consultation ---
DATE OF CONSULTATION: 01/16/2017 INFECTIOUS DISEASES CONSULTATION This consult is for coverage of Dr. Hirsch. CONSULTING PHYSICIAN: Iban Soares M.D. PRIMARY ATTENDING PHYSICIAN: Cortney Werner M.D. REASON FOR CONSULTATION: Pneumonia and UTI. HISTORY OF PRESENT ILLNESS: This is a 66-year-old male, admitted on 01/11/2017 because of altered mental status. The patient had end-stage renal disease and supposed to be on hemodialysis, but because of transportation difficulty, did not have a couple of dialysis. The patient had dysphagia and had G-tube placement on 01/14/2017. He has leukocytosis, but no fever in the hospital. Urine culture grew E. coli and sputum culture grew gram-negative rods. PAST MEDICAL HISTORY: End-stage renal disease, diabetes, hypertension, dementia, and anemia. ALLERGIES: No known drug allergy. MEDICATIONS: Zosyn, , Protonix, Renvela, lactulose, amlodipine, aspirin, , Depakote, heparin, labetalol, Keppra, MiraLAX, DuoNeb inhaler, Ambien, Zofran, Tylenol, clonidine, and morphine. FAMILY HISTORY: No family history is obtainable by the patient. PHYSICAL EXAMINATION: VITAL SIGNS: Temperature 97.7, pulse 86, and blood pressure 123/60. GENERAL APPEARANCE: No acute distress, sleeping. HEAD AND NECK: Normocephalic. HEART: Normal rate. LUNGS: Clear. ABDOMEN: Soft. G-tube in place. EXTREMITIES: He has no edema. He has AV shunt in the left arm. LABORATORY DATA: WBC is 20.8, hemoglobin 8.2, hematocrit 26, and platelets 217,000. Sodium 141, potassium 3.4, chloride 87, bicarbonate 27, BUN 76, creatinine 7.7, and glucose 114. BNP was elevated 8080. Albumin is 2.8. Urine culture grew E. coli. MRSA screen was negative. VRE screen was negative. Sputum grew gram-negative rods. Chest x-ray showed right base infiltrates. IMPRESSION: 1. Pneumonia in right lung. 2. Urinary tract infection. 3. Dysphagia, status post gastrostomy tube placement. 4. Deep tissue injury and pressure ulcers in multiple places. 5. Diabetes. 6. Hypertension. 7. Dementia. Seems to have more deconditioning. RECOMMENDATION: Continue with Zosyn. We will follow up the culture at the end of my exam. I thank Dr. Werner for involving me in the care of this patient. Iban Soares M.D. DR: ROMEO JOB#: [id number] CC: JAMES
[2017-01-17] VITALS (7 sets, daily range): BP systolic 102–118; BP diastolic 59–71
[2017-01-17] MEDS: Piperacillin/Tazobactam 2.25 GM in NS 55 ML IV SCH ×3 (06:06→21:40)
[2017-01-17] MEDS: HydrALAZINE 50mg tab ORAL SCH ×3 (06:06→21:40)
[2017-01-17] MEDS: Labetalol 200mg tab ORAL SCH ×2 (09:00→21:39)
[2017-01-17] MEDS: Heparin 5000 units/ml inj SUBQ SCH ×2 (09:53→21:42)
[2017-01-17] MEDS: levETIRAcetam 500mg/5ml Liquid NG SCH ×2 (09:55→21:39)
[2017-01-17] MEDS: Renvela 800mg Pkt ORAL SCH ×3 (09:55→18:28)
[2017-01-17] MEDS: Valproic Acid 250mg/5ml Liquid GT SCH ×2 (09:56→21:39)
[2017-01-17] MEDS: Vitamin A&D Oint 2oz Tube TOPIC SCH ×2 (10:25→21:41)
[2017-01-17] MEDS: Lactulose 20gm/30ml UDC ORAL SCH ×2 (10:26→18:28)
--- NOTE | 2017-01-17 10:30 | Infectious Diseases Prog Note ---
Assessment/Plan Assessment/Plan This is a 66-year-old F Pneumonia Scx: EColi UTI EColi Altered mental status ESRD on hemodialysis SP G-tube placement on 01/14/2017 HTN Dementia anemia AV shunt Deep tissue injury and pressure ulcers in multiple places Diabetes P: cont pt on IV Zosyn d# 2 / 7 Monitor CBC Monitor BMP Monitor LFT Monitor C- xray Monitor Blood Cx Subjective Constitutional: Denies: anorexia, chills, drenching sweats, fatigue, fever, no symptoms, other Allergies: Coded Allergies: No Known Allergies (Verified , 03/31/11) Objective Vital Signs Last 24 Hour Vital Signs Date Time Temp Pulse Resp B/P Pulse Ox O2 Delivery O2 Flow Rate FiO2 01/17/17 08:13 Room Air 2.0 28 01/17/17 08:00 96.8 73 18 110/60 98 Room Air 01/17/17 06:06 111/59 01/17/17 04:00 97.2 74 18 111/59 97 01/16/17 23:48 97.5 78 18 137/64 97 Room Air 01/16/17 21:12 72 110/60 01/16/17 21:11 110/60 01/16/17 20:00 97.7 72 18 111/60 97 Room Air 01/16/17 19:37 91 18 Room Air 01/16/17 16:00 97.5 72 22 119/61 100 Room Air 01/16/17 15:10 139/53 01/16/17 12:00 97.7 78 21 139/53 94 Room Air 01/16/17 10:51 86 16 Room Air Height (Feet): 6 Height (Inches): 0.00 Weight (Pounds): 200 HEENT: atraumatic Respiratory/Chest: lungs clear Cardiovascular: normal rate Abdomen: soft, non tender Microbiology Date/Time Source Procedure Growth Status 01/15/17 17:08 Blood Blood Culture - Preliminary NO GROWTH AFTER 24 HOURS Resulted 01/15/17 17:00 Blood Blood Culture - Preliminary NO GROWTH AFTER 24 HOURS Resulted 01/15/17 15:00 Sputum Induced Gram Stain - Final Complete 01/15/17 15:00 Sputum Culture - Final Escherichia Coli Usual Upper Respiratory Nola Complete Laboratory Tests Test 01/16/17 14:00 Urine Color Brown Urine Appearance Clear Urine pH 6 (4.5-8.0) Urine Specific [place] 1.010 (1.005-1.035) Urine Protein 4+ (NEGATIVE) H Urine Glucose (UA) Negative (NEGATIVE) Urine Ketones 1+ (NEGATIVE) H Urine Occult Blood 5+ (NEGATIVE) H Urine Nitrite Negative (NEGATIVE) Urine Bilirubin 1+ (NEGATIVE) H Urine Ictotest Negative Urine Urobilinogen Normal MG/DL (0.0-1.0) Urine Leukocyte Esterase 3+ (NEGATIVE) H Urine RBC Tntc /HPF (0 - 0) H Urine WBC Tntc /HPF (0 - 0) H Urine Squamous Epithelial Cells Occasional /LPF Urine Bacteria Moderate /HPF (NONE) H Current Medications Medications (Trade) Dose Ordered Sig/Tracy Route PRN Reason Start Time Stop Time Status Last Admin Dose Admin Acetaminophen (Tylenol) 650 mg Q4H PRN ORAL T>100.5 01/13/17 18:45 02/12/17 18:44 Albuterol/ Ipratropium (DuoNeb 0.5-3(2.5)mg/3ml) 3 ml Q6H PRN HHN Shortness of Breath 01/13/17 20:45 01/18/17 20:44 Amlodipine Besylate (Norvasc) 10 mg DAILY ORAL 01/14/17 09:00 02/13/17 08:59 01/16/17 08:55 Aspirin (ASA) 81 mg DAILY NG 01/14/17 09:00 02/13/17 08:59 01/16/17 08:55 Clonidine HCl (Catapres) 0.1 mg Q4H PRN ORAL SBP>160 01/13/17 18:45 02/12/17 18:44 Heparin Sodium (Porcine) (Heparin 5000 units/ml) 5,000 units EVERY 12 HOURS SUBQ 01/13/17 21:00 02/12/17 20:59 01/17/17 09:53 Hydralazine HCl (Apresoline) 50 mg EVERY 8 HOURS ORAL 01/13/17 22:00 02/12/17 21:59 01/17/17 06:06 Labetalol HCl (Normodyne) 200 mg EVERY 12 HOURS ORAL 01/13/17 21:00 02/12/17 20:59 01/16/17 21:12 Lactulose (Cephulac) 30 gm BID ORAL 01/17/17 10:30 02/16/17 10:29 Levetiracetam (Keppra) 500 mg Q12HR NG 01/13/17 21:00 02/12/17 20:59 01/17/17 09:55 Morphine Sulfate (Morphine Sulfate) 1 mg Q4H PRN IVP PAIN 4-10 01/13/17 18:45 01/20/17 18:44 Ondansetron HCl (Zofran) 4 mg Q6H PRN IVP Nausea & Vomiting 01/13/17 20:45 02/12/17 20:44 Pantoprazole 40 mg 40 mg DAILY IVP 01/15/17 21:00 02/14/17 20:59 01/16/17 08:55 Piperacillin Sod/ Tazobactam Sod/ Sodium Chloride (Zosyn/Sodium Chloride) 55 ml @ 110 mls/hr Q8HR IV 01/16/17 11:30 01/21/17 11:29 01/17/17 06:06 Polyethylene Glycol (Miralax) 17 gm HSPRN PRN ORAL Constipation 01/13/17 21:00 02/12/17 20:59 Sevelamer Carbonate (Renvela) 2,400 mg THREE TIMES A DAY ORAL 01/14/17 18:00 02/13/17 17:59 01/17/17 09:55 Trazodone HCl (Desyrel) 50 mg BEDTIME ORAL 01/13/17 21:00 02/12/17 20:59 01/16/17 21:12 Valproic Acid (Depakene) 250 mg Q12HR GT 01/13/17 21:00 02/12/17 20:59 01/17/17 09:56 Vitamin A/Vitamin D (A & D Oint) 1 applic EVERY 12 HOURS TOPIC 01/13/17 21:00 02/12/17 20:59 01/16/17 21:14 Zolpidem Tartrate (Ambien) 5 mg HSPRN PRN ORAL Insomnia 01/13/17 21:00 02/12/17 20:59 HODAN KEITH M.D. Jan 17, 2017 10:30
[2017-01-17 10:34] LABS: OTHERS PATHOLOGIST COMMENT
--- NOTE | 2017-01-17 11:03 | Diagnostic Imaging Report ---
Indication: Abdominal pain Technique: Spiral acquisitions obtained through the abdomen and pelvis. Patient given enteric contrast. No IV contrast utilized, due to renal insufficiency. Multiplanar reconstructions were generated. Total dose length product 1086 mGycm. CTDIvol(s) 18 mGy. Dose reduction achieved using automated exposure control Comparison: None Findings: There is bilateral gynecomastia. The right lung base demonstrates multiple nodules, many with cavitation. The largest of these measures 4 x 2 cm diameter. Others measure up to 13 mm diameter. There are associated reticulonodular opacities and mild bronchiectatic changes. Minimal dependent atelectasis is seen at left lung base. There is a gastrostomy tube in satisfactory position. A 1 cm diameter filling defect is seen within the duodenum at the expected level of the papilla. There is questionable prominence the pancreatic head, although is the entire pancreas appears diffusely somewhat large. There is also questionable peripancreatic lymphadenopathy, all of these could represent lobulations of the pancreatic parenchyma No small bowel distention or small bowel wall thickening. The appendix is normal. No evidence of diverticulosis or diverticulitis. No free or loculated intraperitoneal air or fluid. There are small right greater than left bilateral inguinal hernias which contain only fat. Lack of IV contrast limits assessment of the solid organs. The gallbladder contains gallstones. No biliary ductal dilatation. The liver, spleen, adrenals are unremarkable. The kidneys are atrophic. No retroperitoneal or mesenteric mass or adenopathy. No pelvic mass or adenopathy. There may be some bladder wall thickening. A small amount of air within the bladder lumen presumably relates to the Resendez catheterization. There is considerable bilateral thigh and buttock skin thickening. What are presumably old cerclage wires are seen surrounding the right greater trochanter of the hip. There are degenerative changes of the lumbar and thoracic spine. Impression: Multiple nodules/masses at the right lung base, many with cavitation. Associated reticular interstitial changes and bronchiectasis. Findings are worrisome for infection, possibly mycobacterial. Multifocal neoplasm also a possibility. Dr. Werner notified of this critical value at the time of interpretation 1 cm filling defect in the duodenum at the level of the patella. Could be an artifact of redundant mucosa, papillary neoplasm is not completely excludable. Not described on the preliminary report, Dr. Werner likewise notified Generalized fullness of the pancreatic head, without discrete mass. Probably related to generalized prominence of the pancreas, but pancreatic head mass and associated adenopathy cannot be completely ruled out. Cholelithiasis Resendez catheter the bladder. Air within the bladder lumen, likely related to Resendez catheterization Equivocal bladder wall thickening, probably artifact of under distention Other findings as noted, including degenerative spondylosis, evidence of prior right greater trochanter surgical repair, gastrostomy This agrees with the preliminary interpretation provided overnight by [facility] teleradiology service. The CT scanner at [facility] is accredited by the [employer] and the scans are performed using protocols designed to limit radiation exposure to as low as reasonably achievable to attain images of sufficient resolution adequate for diagnostic evaluation.
--- NOTE | 2017-01-17 12:32 | General Progress Note ---
Assessment/Plan Status: stable, unchanged Status Narrative WBCs elevated Assessment/Plan status: ESRD next HD 08/15, in process HyperKalemia- resolved after HD HTN DM Dementia CVA Sz disorder Plan; HD done 12/17- in process Phos binders per consultants Subjective ROS Limited/Unobtainable: No Allergies: Coded Allergies: No Known Allergies (Verified , 03/31/11) Objective Last 24 Hour Vital Signs Date Time Temp Pulse Resp B/P Pulse Ox O2 Delivery O2 Flow Rate FiO2 01/17/17 11:42 Room Air 2.0 28 01/17/17 08:13 Room Air 2.0 28 01/17/17 08:00 96.8 73 18 110/60 98 Room Air 01/17/17 06:06 111/59 01/17/17 04:00 97.2 74 18 111/59 97 01/16/17 23:48 97.5 78 18 137/64 97 Room Air 01/16/17 21:12 72 110/60 01/16/17 21:11 110/60 01/16/17 20:00 97.7 72 18 111/60 97 Room Air 01/16/17 19:37 91 18 Room Air 01/16/17 16:00 97.5 72 22 119/61 100 Room Air 01/16/17 15:10 139/53 Intake and Output 01/16/17 01/17/17 19:00 07:00 Intake Total 425 ml 535 ml Balance 425 ml 535 ml Free Water 110 ml IV Total 55 ml 55 ml Tube Feeding 260 ml 480 ml # Bowel Movements 7 Laboratory Tests 01/16/17 14:00: Urine Color Brown, Urine Appearance Clear, Urine pH 6, Urine Specific [place] 1.010, Urine Protein 4+H, Urine Glucose (UA) Negative, Urine Ketones 1+H, Urine Occult Blood 5+H, Urine Nitrite Negative, Urine Bilirubin 1+H, Urine Ictotest Negative, Urine Urobilinogen Normal, Urine Leukocyte Esterase 3+H, Urine RBC TntcH, Urine WBC TntcH, Urine Squamous Epithelial Cells Occasional, Urine Bacteria ModerateH Height (Feet): 6 Height (Inches): 0.00 Weight (Pounds): 200 General Appearance: no apparent distress Cardiovascular: normal rate Respiratory/Chest: decreased breath sounds Abdomen: soft Objective other PE not changed SHILOH CABRAL Jan 17, 2017 12:32
[2017-01-17] MEDS: Aspirin Baby 81mg NG SCH (13:21)
[2017-01-17] MEDS: Pantoprazole Inj IVP SCH (13:21)
--- NOTE | 2017-01-17 15:53 | GI Progress Note ---
Assessment/Plan Problems: (1) Encounter for PEG (percutaneous endoscopic gastrostomy) ICD Codes: Z43.1 - Encounter for attention to gastrostomy SNOMED: 707868482, 784220474 (2) Diabetes ICD Codes: E11.9 - Type 2 diabetes mellitus without complications SNOMED: 17586869 Status: unchanged Status Narrative Discussed with Dr. Meza. Assessment/Plan Assessment - Anemia - rising WBC concerning - presumed due to cavitary lung masses seen on CT - CRF - dysphagia - OB stool negative Recommendations - follow WBC - cavitary lung masses per pulmonary - fu C diff - abx - GTFs per dietary - ordered [id number] Subjective Subjective limited, pt on HD Objective Last 24 Hour Vital Signs Date Time Temp Pulse Resp B/P Pulse Ox O2 Delivery O2 Flow Rate FiO2 01/17/17 13:44 104/68 01/17/17 13:01 97.3 88 18 104/68 98 Room Air 01/17/17 12:00 97.0 83 18 112/65 97 Room Air 01/17/17 11:42 Room Air 2.0 28 01/17/17 09:00 88 104/68 01/17/17 09:00 88 104/68 01/17/17 08:13 Room Air 2.0 28 01/17/17 08:00 96.8 73 18 110/60 98 Room Air 01/17/17 06:06 111/59 01/17/17 04:00 97.2 74 18 111/59 97 01/16/17 23:48 97.5 78 18 137/64 97 Room Air 01/16/17 21:12 72 110/60 01/16/17 21:11 110/60 01/16/17 20:00 97.7 72 18 111/60 97 Room Air 01/16/17 19:37 91 18 Room Air 01/16/17 16:00 97.5 72 22 119/61 100 Room Air Intake and Output 01/16/17 01/17/17 19:00 07:00 Intake Total 425 ml 535 ml Balance 425 ml 535 ml Free Water 110 ml IV Total 55 ml 55 ml Tube Feeding 260 ml 480 ml # Bowel Movements 7 Height (Feet): 6 Height (Inches): 0.00 Weight (Pounds): 200 General Appearance: no apparent distress, alert Cardiovascular: normal rate Respiratory/Chest: normal breath sounds, no respiratory distress Abdominal Exam: normal bowel sounds, non tender, soft, GT site - c/d/i Objective Endoscopy Procedure Note Indication for Procedure: dysphagia Procedures Performed: PEG Operative Findings/Diagnosis: GT placed NANCY MORELOS - Jan 14, 2017 13:39 Cally Candelaria N.P. Jan 17, 2017 15:53
--- NOTE | 2017-01-17 16:19 | Diagnostic Imaging Report ---
Indication: SOB Technique: One view of the chest Comparison: 01/16/2017 Findings: There is decreased right basilar infiltrate, only minimal residual. Remainder the lungs and pleural spaces are clear. Heart size is normal Impression: Improved right basal infiltrate, over one day
--- NOTE | 2017-01-17 16:28 | Pulmonology Progress Note ---
Assessment/Plan Problems: (1) Pneumonia (2) Cavitary lung disease (3) Acute encephalopathy (4) ESRF (end stage renal failure) (5) HTN (hypertension) (6) Hyperkalemia (7) Diabetes Assessment/Plan isolation because of multiple pulmonary lesions LDH, tumro markers, fungal serology f/u wbc continue antibiotics HD by nephrology Subjective Interval Events: CT showing multiple pulmoanry cavitary lesions Allergies: Coded Allergies: No Known Allergies (Verified , 03/31/11) Objective Last 24 Hour Vital Signs Date Time Temp Pulse Resp B/P Pulse Ox O2 Delivery O2 Flow Rate FiO2 01/17/17 13:44 104/68 01/17/17 13:01 97.3 88 18 104/68 98 Room Air 01/17/17 12:00 97.0 83 18 112/65 97 Room Air 01/17/17 11:42 Room Air 2.0 28 01/17/17 09:00 88 104/68 01/17/17 09:00 88 104/68 01/17/17 08:13 Room Air 2.0 28 01/17/17 08:00 96.8 73 18 110/60 98 Room Air 01/17/17 06:06 111/59 01/17/17 04:00 97.2 74 18 111/59 97 01/16/17 23:48 97.5 78 18 137/64 97 Room Air 01/16/17 21:12 72 110/60 01/16/17 21:11 110/60 01/16/17 20:00 97.7 72 18 111/60 97 Room Air 01/16/17 19:37 91 18 Room Air Intake and Output 01/16/17 01/17/17 19:00 07:00 Intake Total 425 ml 535 ml Balance 425 ml 535 ml Free Water 110 ml IV Total 55 ml 55 ml Tube Feeding 260 ml 480 ml # Bowel Movements 7 General Appearance: WD/WN HEENT: normocephalic, atraumatic Respiratory/Chest: chest wall non-tender, lungs clear Cardiovascular: normal peripheral pulses, normal rate Abdomen: normal bowel sounds, soft, non tender Extremities: no cyanosis 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, abnormal gait Microbiology Date/Time Source Procedure Growth Status 01/15/17 17:08 Blood Blood Culture - Preliminary NO GROWTH AFTER 24 HOURS Resulted 01/15/17 17:00 Blood Blood Culture - Preliminary NO GROWTH AFTER 24 HOURS Resulted 01/15/17 15:00 Sputum Induced Gram Stain - Final Complete 01/15/17 15:00 Sputum Culture - Final Escherichia Coli Usual Upper Respiratory [place]ola Complete 01/16/17 14:00 Indwelling Cath Urine Culture - Preliminary NO GROWTH Resulted Current Medications Medications (Trade) Dose Ordered Sig/Tracy Route PRN Reason Start Time Stop Time Status Last Admin Dose Admin Acetaminophen (Tylenol) 650 mg Q4H PRN ORAL T>100.5 01/13/17 18:45 02/12/17 18:44 Albuterol/ Ipratropium (DuoNeb 0.5-3(2.5)mg/3ml) 3 ml Q6H PRN HHN Shortness of Breath 01/13/17 20:45 01/18/17 20:44 Amlodipine Besylate (Norvasc) 10 mg DAILY ORAL 01/14/17 09:00 02/13/17 08:59 01/16/17 08:55 Aspirin (ASA) 81 mg DAILY NG 01/14/17 09:00 02/13/17 08:59 01/17/17 13:21 Clonidine HCl (Catapres) 0.1 mg Q4H PRN ORAL SBP>160 01/13/17 18:45 02/12/17 18:44 Heparin Sodium (Porcine) (Heparin 5000 units/ml) 5,000 units EVERY 12 HOURS SUBQ 01/13/17 21:00 02/12/17 20:59 01/17/17 09:53 Hydralazine HCl (Apresoline) 50 mg EVERY 8 HOURS ORAL 01/13/17 22:00 02/12/17 21:59 01/17/17 06:06 Labetalol HCl (Normodyne) 200 mg EVERY 12 HOURS ORAL 01/13/17 21:00 02/12/17 20:59 01/16/17 21:12 Lactulose (Cephulac) 30 gm BID ORAL 01/17/17 10:30 02/16/17 10:29 01/17/17 10:26 Levetiracetam (Keppra) 500 mg Q12HR NG 01/13/17 21:00 02/12/17 20:59 01/17/17 09:55 Morphine Sulfate (Morphine Sulfate) 1 mg Q4H PRN IVP PAIN 4-10 01/13/17 18:45 01/20/17 18:44 Ondansetron HCl (Zofran) 4 mg Q6H PRN IVP Nausea & Vomiting 01/13/17 20:45 02/12/17 20:44 Pantoprazole 40 mg 40 mg DAILY IVP 01/15/17 21:00 02/14/17 20:59 01/17/17 13:21 Piperacillin Sod/ Tazobactam Sod/ Sodium Chloride (Zosyn/Sodium Chloride) 55 ml @ 110 mls/hr Q8HR IV 01/16/17 11:30 01/21/17 11:29 01/17/17 13:59 Polyethylene Glycol (Miralax) 17 gm HSPRN PRN ORAL Constipation 01/13/17 21:00 02/12/17 20:59 Sevelamer Carbonate (Renvela) 2,400 mg THREE TIMES A DAY ORAL 01/14/17 18:00 02/13/17 17:59 01/17/17 14:29 Trazodone HCl (Desyrel) 50 mg BEDTIME ORAL 01/13/17 21:00 02/12/17 20:59 01/16/17 21:12 Valproic Acid (Depakene) 250 mg Q12HR GT 01/13/17 21:00 02/12/17 20:59 01/17/17 09:56 Vitamin A/Vitamin D (A & D Oint) 1 applic EVERY 12 HOURS TOPIC 01/13/17 21:00 02/12/17 20:59 01/17/17 10:25 Zolpidem Tartrate (Ambien) 5 mg HSPRN PRN ORAL Insomnia 01/13/17 21:00 02/12/17 20:59 MITUL NAVARRO Jan 17, 2017 16:28
[2017-01-17] MEDS ORDERED: PPD Tuberculin Skin Test 5TU IDERMAL ONE (18:00)
[2017-01-17] MEDS: TraZODone 50mg tab ORAL SCH (21:39)
[2017-01-18 04:00] VITALS: BP 121/61
[2017-01-18] MEDS: HydrALAZINE 50mg tab ORAL SCH (05:13)
[2017-01-18] MEDS: Piperacillin/Tazobactam 2.25 GM in NS 55 ML IV SCH ×3 (05:13→21:13)
[2017-01-18 06:53] LABS: MEAN CORPUSCULAR HEMOGLOBIN 31.3 PG (27.0-31.0); MEAN CORPUSCULAR HGB CONC 32.5 G/DL (32.0-36.0); MEAN CORPUSCULAR VOLUME 96 FL (80-99); MEAN PLATELET VOLUME 6.7 FL (6.5-10.1); PLATELET COUNT 278 K/UL (150-450); RED BLOOD COUNT 2.48 M/UL (4.70-6.10); RED CELL DISTRIBUTION WIDTH 13.9 % (11.6-14.8); WHITE BLOOD COUNT 21.9 K/UL (4.8-10.8)
[2017-01-18 07:15] LABS: ALBUMIN/GLOBULIN RATIO 0.7 (1.0-2.7); CALCIUM 9.4 mg/dL (8.6-10.2); CREATININE 7.1 mg/dL (0.7-1.2); GLOMERULAR FILTRATION RATE 9.5 mL/min (>60); TOTAL PROTEIN 7.8 g/dL (6.6-8.7)
[2017-01-18 07:28] LABS: POTASSIUM 2.7 mEQ/L (3.4-4.9)
[2017-01-18 08:00] VITALS: BP_SYST 113; BP_SYST 154; BP_DIAS 110; BP_DIAS 55
[2017-01-18] MEDS: Heparin 5000 units/ml inj SUBQ SCH ×2 (09:00→21:11)
[2017-01-18] MEDS: Labetalol 200mg tab ORAL SCH ×2 (09:00→21:12)
[2017-01-18 10:23] LABS: BAND NEUTROPHILS % (MANUAL) 0 % (0-8); BASOPHILS % (MANUAL) 0 % (0-2); EOSINOPHILS % (MANUAL) 2 % (0-3); LYMPHOCYTES % (MANUAL) 8 % (20-45); NEUTROPHILS % (MANUAL) 78 % (45-75); PLATELET ESTIMATE ADEQUATE; PLATELET MORPHOLOGY NORMAL; TOTAL CELLS COUNTED 100
[2017-01-18 10:24] LABS: ANISOCYTOSIS 1+; HYPOCHROMASIA 1+
--- NOTE | 2017-01-18 10:29 | Infectious Diseases Prog Note ---
Assessment/Plan Assessment/Plan This is a 66-year-old F Pneumonia Scx: EColi UTI EColi Altered mental status ESRD on hemodialysis SP G-tube placement on 01/14/2017 HTN Dementia anemia AV shunt Deep tissue injury and pressure ulcers in multiple places Diabetes P: cont pt on IV Zosyn d# 3 / 7 Monitor CBC Monitor BMP Monitor LFT Monitor C- xray Monitor Blood Cx Subjective Constitutional: Denies: anorexia, chills, drenching sweats, fatigue, fever, no symptoms, other Allergies: Coded Allergies: No Known Allergies (Verified , 03/31/11) Objective Vital Signs Last 24 Hour Vital Signs Date Time Temp Pulse Resp B/P Pulse Ox O2 Delivery O2 Flow Rate FiO2 01/18/17 09:22 66 18 Room Air 01/18/17 08:00 97.2 79 18 113/55 97 Room Air 01/18/17 05:13 121/61 01/18/17 04:00 97.9 81 18 121/61 94 Room Air 01/17/17 23:58 97.9 81 18 108/59 93 Room Air 01/17/17 21:40 118/71 01/17/17 21:39 105 118/71 01/17/17 20:00 98.1 105 18 118/71 99 Room Air 01/17/17 17:18 88 16 Room Air 01/17/17 16:00 97.3 87 20 102/61 98 Room Air 01/17/17 13:44 104/68 01/17/17 13:01 97.3 88 18 104/68 98 Room Air 01/17/17 12:00 97.0 83 18 112/65 97 Room Air 01/17/17 11:42 Room Air 2.0 28 Height (Feet): 6 Height (Inches): 0.00 Weight (Pounds): 200 HEENT: anicteric Respiratory/Chest: normal breath sounds Cardiovascular: regular rhythm Abdomen: non distended Microbiology Date/Time Source Procedure Growth Status 01/16/17 10:45 Blood Blood Culture - Preliminary NO GROWTH AFTER 24 HOURS Resulted 01/16/17 10:35 Blood Blood Culture - Preliminary NO GROWTH AFTER 24 HOURS Resulted 01/15/17 17:08 Blood Blood Culture - Preliminary NO GROWTH AFTER 48 HOURS Resulted 01/15/17 17:00 Blood Blood Culture - Preliminary NO GROWTH AFTER 48 HOURS Resulted 01/15/17 15:00 Sputum Induced Gram Stain - Final Complete 01/15/17 15:00 Sputum Culture - Final Escherichia Coli Usual Upper Respiratory Nola Complete 01/16/17 14:00 Indwelling Cath Urine Culture - Preliminary NO GROWTH Resulted Laboratory Tests Test 01/18/17 06:20 White Blood Count 21.9 K/UL (4.8-10.8) H Red Blood Count 2.48 M/UL (4.70-6.10) L Hemoglobin 7.7 G/DL (14.2-18.0) L Hematocrit 23.8 % (42.0-52.0) L Mean Corpuscular Volume 96 FL (80-99) Mean Corpuscular Hemoglobin 31.3 PG (27.0-31.0) H Mean Corpuscular Hemoglobin Concent 32.5 G/DL (32.0-36.0) Red Cell Distribution Width 13.9 % (11.6-14.8) Platelet Count 278 K/UL (150-450) Mean Platelet Volume 6.7 FL (6.5-10.1) Neutrophils (%) (Auto) % (45.0-75.0) Lymphocytes (%) (Auto) % (20.0-45.0) Monocytes (%) (Auto) % (1.0-10.0) Eosinophils (%) (Auto) % (0.0-3.0) Basophils (%) (Auto) % (0.0-2.0) Differential Total Cells Counted 100 Neutrophils % (Manual) 78 % (45-75) H Lymphocytes % (Manual) 8 % (20-45) L Monocytes % (Manual) 12 % (1-10) H Eosinophils % (Manual) 2 % (0-3) Basophils % (Manual) 0 % (0-2) Band Neutrophils 0 % (0-8) Platelet Estimate Adequate Platelet Morphology Normal Hypochromasia 1+ Anisocytosis 1+ Sodium Level 142 mEQ/L (135-145) Potassium Level 2.7 mEQ/L (3.4-4.9) *L Chloride Level 91 mEQ/L (98-107) L Carbon Dioxide Level 29 mEQ/L (20-30) Anion Gap 22 (5-15) H Blood Urea Nitrogen 64 mg/dL (7-23) H Creatinine 7.1 mg/dL (0.7-1.2) H Estimat Glomerular Filtration Rate 9.5 mL/min (>60) Glucose Level 148 mg/dL (74-106) H Uric Acid 5.3 mg/dL (3.0-7.5) Calcium Level 9.4 mg/dL (8.6-10.2) Phosphorus Level 4.9 mg/dL (2.5-4.8) H Total Bilirubin 0.5 mg/dL (0.0-1.2) Aspartate Amino Transf (AST/SGOT) 25 U/L (5-40) Alanine Aminotransferase (ALT/SGPT) 7 U/L (3-41) Alkaline Phosphatase 105 U/L (40-129) Ammonia 19 umol/L (16-60) Lactate Dehydrogenase 181 U/L (135-230) Total Protein 7.8 g/dL (6.6-8.7) Albumin 3.3 g/dL (3.5-5.2) L Globulin 4.5 g/dL Albumin/Globulin Ratio 0.7 (1.0-2.7) L Carcinoembryonic Antigen 9.3 ng/mL H CA 19-9 Antigen 63.65 U/mL (< 37) H Blastomyces Ab Immunodiffusion Pending Cryptococcus Antigen Pending Histoplasma Mycelial Antibody Pending Histoplasma Antibody w Mycelial Ag Pending Histoplasma Antibody with Yeast Ag Pending TB Test (T-Spot) Pending TB Test Nil Control (T-Spot) Pending TB Test Panel A (T-Spot) Pending TB Test Panel B (T-Spot) Pending TB Test Positive Control (T-Spot) Pending Current Medications Medications (Trade) Dose Ordered Sig/Tracy Route PRN Reason Start Time Stop Time Status Last Admin Dose Admin Acetaminophen (Tylenol) 650 mg Q4H PRN ORAL T>100.5 01/13/17 18:45 02/12/17 18:44 Albuterol/ Ipratropium (DuoNeb 0.5-3(2.5)mg/3ml) 3 ml Q6H PRN HHN Shortness of Breath 01/13/17 20:45 01/18/17 20:44 Amlodipine Besylate (Norvasc) 10 mg DAILY ORAL 01/14/17 09:00 02/13/17 08:59 01/16/17 08:55 Aspirin (ASA) 81 mg DAILY NG 01/14/17 09:00 02/13/17 08:59 01/17/17 13:21 Clonidine HCl (Catapres) 0.1 mg Q4H PRN ORAL SBP>160 01/13/17 18:45 02/12/17 18:44 Heparin Sodium (Porcine) (Heparin 5000 units/ml) 5,000 units EVERY 12 HOURS SUBQ 01/13/17 21:00 02/12/17 20:59 01/17/17 21:42 Hydralazine HCl (Apresoline) 50 mg EVERY 8 HOURS ORAL 01/13/17 22:00 02/12/17 21:59 01/18/17 05:13 Labetalol HCl (Normodyne) 200 mg EVERY 12 HOURS ORAL 01/13/17 21:00 02/12/17 20:59 01/17/17 21:39 Lactulose (Cephulac) 30 gm BID ORAL 01/17/17 10:30 02/16/17 10:29 01/17/17 18:28 Levetiracetam (Keppra) 500 mg Q12HR NG 01/13/17 21:00 02/12/17 20:59 01/17/17 21:39 Morphine Sulfate (Morphine Sulfate) 1 mg Q4H PRN IVP PAIN 4-10 01/13/17 18:45 01/20/17 18:44 Ondansetron HCl (Zofran) 4 mg Q6H PRN IVP Nausea & Vomiting 01/13/17 20:45 02/12/17 20:44 Pantoprazole 40 mg 40 mg DAILY IVP 01/15/17 21:00 02/14/17 20:59 01/17/17 13:21 Piperacillin Sod/ Tazobactam Sod/ Sodium Chloride (Zosyn/Sodium Chloride) 55 ml @ 110 mls/hr Q8HR IV 01/16/17 11:30 01/21/17 11:29 01/18/17 05:13 Polyethylene Glycol (Miralax) 17 gm HSPRN PRN ORAL Constipation 01/13/17 21:00 02/12/17 20:59 Sevelamer Carbonate (Renvela) 2,400 mg THREE TIMES A DAY ORAL 01/14/17 18:00 02/13/17 17:59 01/17/17 18:28 Trazodone HCl (Desyrel) 50 mg BEDTIME ORAL 01/13/17 21:00 02/12/17 20:59 01/17/17 21:39 Valproic Acid (Depakene) 250 mg Q12HR GT 01/13/17 21:00 02/12/17 20:59 01/17/17 21:39 Vitamin A/Vitamin D (A & D Oint) 1 applic EVERY 12 HOURS TOPIC 01/13/17 21:00 02/12/17 20:59 01/17/17 21:41 Zolpidem Tartrate (Ambien) 5 mg HSPRN PRN ORAL Insomnia 01/13/17 21:00 02/12/17 20:59 HODAN KEITH M.D. Jan 18, 2017 10:29
--- NOTE | 2017-01-18 10:41 | Infectious Diseases Prog Note ---
Assessment/Plan Assessment/Plan This is a 66-year-old F Pneumonia Scx: EColi UTI EColi Cavitary Lung lesions , multiple RO TB, Fungal Cancer CT: Multiple nodules/masses at the right lung base, many with cavitation.Associated reticular interstitial changes and bronchiectasis. Findings are worrisome for infection, possibly mycobacterial. Multifocal neoplasm also a possibility. Altered mental status ESRD on hemodialysis SP G-tube placement on 01/14/2017 HTN Dementia anemia AV shunt Deep tissue injury and pressure ulcers in multiple places Diabetes P: cont pt on IV Zosyn d# 3 / 7 Monitor CBC Monitor BMP Monitor LFT Monitor C- xray Monitor Blood Cx coccido Ab, Crypt Ag, AFB x3 QuantiFeron Gold TB Airborne isolation Chest CT Subjective Constitutional: Denies: anorexia, chills, drenching sweats, fatigue, fever, no symptoms, other Allergies: Coded Allergies: No Known Allergies (Verified , 03/31/11) Objective Vital Signs Last 24 Hour Vital Signs Date Time Temp Pulse Resp B/P Pulse Ox O2 Delivery O2 Flow Rate FiO2 01/18/17 09:22 66 18 Room Air 01/18/17 08:00 97.2 79 18 113/55 97 Room Air 01/18/17 05:13 121/61 01/18/17 04:00 97.9 81 18 121/61 94 Room Air 01/17/17 23:58 97.9 81 18 108/59 93 Room Air 01/17/17 21:40 118/71 01/17/17 21:39 105 118/71 01/17/17 20:00 98.1 105 18 118/71 99 Room Air 01/17/17 17:18 88 16 Room Air 01/17/17 16:00 97.3 87 20 102/61 98 Room Air 01/17/17 13:44 104/68 01/17/17 13:01 97.3 88 18 104/68 98 Room Air 01/17/17 12:00 97.0 83 18 112/65 97 Room Air 01/17/17 11:42 Room Air 2.0 28 Height (Feet): 6 Height (Inches): 0.00 Weight (Pounds): 200 HEENT: anicteric Respiratory/Chest: normal breath sounds Cardiovascular: regular rhythm Abdomen: no organomegaly Skin: no lesions Microbiology Date/Time Source Procedure Growth Status 01/16/17 10:45 Blood Blood Culture - Preliminary NO GROWTH AFTER 24 HOURS Resulted 01/16/17 10:35 Blood Blood Culture - Preliminary NO GROWTH AFTER 24 HOURS Resulted 01/15/17 17:08 Blood Blood Culture - Preliminary NO GROWTH AFTER 48 HOURS Resulted 01/15/17 17:00 Blood Blood Culture - Preliminary NO GROWTH AFTER 48 HOURS Resulted 01/15/17 15:00 Sputum Induced Gram Stain - Final Complete 01/15/17 15:00 Sputum Culture - Final Escherichia Coli Usual Upper Respiratory Nola Complete 01/16/17 14:00 Indwelling Cath Urine Culture - Preliminary Gram Negative Bacillus 1 Resulted Laboratory Tests Test 01/18/17 06:20 White Blood Count 21.9 K/UL (4.8-10.8) H Red Blood Count 2.48 M/UL (4.70-6.10) L Hemoglobin 7.7 G/DL (14.2-18.0) L Hematocrit 23.8 % (42.0-52.0) L Mean Corpuscular Volume 96 FL (80-99) Mean Corpuscular Hemoglobin 31.3 PG (27.0-31.0) H Mean Corpuscular Hemoglobin Concent 32.5 G/DL (32.0-36.0) Red Cell Distribution Width 13.9 % (11.6-14.8) Platelet Count 278 K/UL (150-450) Mean Platelet Volume 6.7 FL (6.5-10.1) Neutrophils (%) (Auto) % (45.0-75.0) Lymphocytes (%) (Auto) % (20.0-45.0) Monocytes (%) (Auto) % (1.0-10.0) Eosinophils (%) (Auto) % (0.0-3.0) Basophils (%) (Auto) % (0.0-2.0) Differential Total Cells Counted 100 Neutrophils % (Manual) 78 % (45-75) H Lymphocytes % (Manual) 8 % (20-45) L Monocytes % (Manual) 12 % (1-10) H Eosinophils % (Manual) 2 % (0-3) Basophils % (Manual) 0 % (0-2) Band Neutrophils 0 % (0-8) Platelet Estimate Adequate Platelet Morphology Normal Hypochromasia 1+ Anisocytosis 1+ Sodium Level 142 mEQ/L (135-145) Potassium Level 2.7 mEQ/L (3.4-4.9) *L Chloride Level 91 mEQ/L (98-107) L Carbon Dioxide Level 29 mEQ/L (20-30) Anion Gap 22 (5-15) H Blood Urea Nitrogen 64 mg/dL (7-23) H Creatinine 7.1 mg/dL (0.7-1.2) H Estimat Glomerular Filtration Rate 9.5 mL/min (>60) Glucose Level 148 mg/dL (74-106) H Uric Acid 5.3 mg/dL (3.0-7.5) Calcium Level 9.4 mg/dL (8.6-10.2) Phosphorus Level 4.9 mg/dL (2.5-4.8) H Total Bilirubin 0.5 mg/dL (0.0-1.2) Aspartate Amino Transf (AST/SGOT) 25 U/L (5-40) Alanine Aminotransferase (ALT/SGPT) 7 U/L (3-41) Alkaline Phosphatase 105 U/L (40-129) Ammonia 19 umol/L (16-60) Lactate Dehydrogenase 181 U/L (135-230) Total Protein 7.8 g/dL (6.6-8.7) Albumin 3.3 g/dL (3.5-5.2) L Globulin 4.5 g/dL Albumin/Globulin Ratio 0.7 (1.0-2.7) L Carcinoembryonic Antigen 9.3 ng/mL H CA 19-9 Antigen 63.65 U/mL (< 37) H Blastomyces Ab Immunodiffusion Pending Cryptococcus Antigen Pending Histoplasma Mycelial Antibody Pending Histoplasma Antibody w Mycelial Ag Pending Histoplasma Antibody with Yeast Ag Pending TB Test (T-Spot) Pending TB Test Nil Control (T-Spot) Pending TB Test Panel A (T-Spot) Pending TB Test Panel B (T-Spot) Pending TB Test Positive Control (T-Spot) Pending Current Medications Medications (Trade) Dose Ordered Sig/Tracy Route PRN Reason Start Time Stop Time Status Last Admin Dose Admin Acetaminophen (Tylenol) 650 mg Q4H PRN ORAL T>100.5 01/13/17 18:45 02/12/17 18:44 Albuterol/ Ipratropium (DuoNeb 0.5-3(2.5)mg/3ml) 3 ml Q6H PRN HHN Shortness of Breath 01/13/17 20:45 01/18/17 20:44 Amlodipine Besylate (Norvasc) 10 mg DAILY ORAL 01/14/17 09:00 02/13/17 08:59 01/16/17 08:55 Aspirin (ASA) 81 mg DAILY NG 01/14/17 09:00 02/13/17 08:59 01/17/17 13:21 Clonidine HCl (Catapres) 0.1 mg Q4H PRN ORAL SBP>160 01/13/17 18:45 02/12/17 18:44 Heparin Sodium (Porcine) (Heparin 5000 units/ml) 5,000 units EVERY 12 HOURS SUBQ 01/13/17 21:00 02/12/17 20:59 01/17/17 21:42 Hydralazine HCl (Apresoline) 50 mg EVERY 8 HOURS ORAL 01/13/17 22:00 02/12/17 21:59 01/18/17 05:13 Labetalol HCl (Normodyne) 200 mg EVERY 12 HOURS ORAL 01/13/17 21:00 02/12/17 20:59 01/17/17 21:39 Lactulose (Cephulac) 30 gm BID ORAL 01/17/17 10:30 02/16/17 10:29 01/17/17 18:28 Levetiracetam (Keppra) 500 mg Q12HR NG 01/13/17 21:00 02/12/17 20:59 01/17/17 21:39 Morphine Sulfate (Morphine Sulfate) 1 mg Q4H PRN IVP PAIN 4-10 01/13/17 18:45 01/20/17 18:44 Ondansetron HCl (Zofran) 4 mg Q6H PRN IVP Nausea & Vomiting 01/13/17 20:45 02/12/17 20:44 Pantoprazole 40 mg 40 mg DAILY IVP 01/15/17 21:00 02/14/17 20:59 01/17/17 13:21 Piperacillin Sod/ Tazobactam Sod/ Sodium Chloride (Zosyn/Sodium Chloride) 55 ml @ 110 mls/hr Q8HR IV 01/16/17 11:30 01/21/17 11:29 01/18/17 05:13 Polyethylene Glycol (Miralax) 17 gm HSPRN PRN ORAL Constipation 01/13/17 21:00 02/12/17 20:59 Sevelamer Carbonate (Renvela) 2,400 mg THREE TIMES A DAY ORAL 01/14/17 18:00 02/13/17 17:59 01/17/17 18:28 Trazodone HCl (Desyrel) 50 mg BEDTIME ORAL 01/13/17 21:00 02/12/17 20:59 01/17/17 21:39 Valproic Acid (Depakene) 250 mg Q12HR GT 01/13/17 21:00 02/12/17 20:59 01/17/17 21:39 Vitamin A/Vitamin D (A & D Oint) 1 applic EVERY 12 HOURS TOPIC 01/13/17 21:00 02/12/17 20:59 01/17/17 21:41 Zolpidem Tartrate (Ambien) 5 mg HSPRN PRN ORAL Insomnia 01/13/17 21:00 02/12/17 20:59 HODAN KEITH M.D. Jan 18, 2017 10:41
[2017-01-18] MEDS: Renvela 800mg Pkt ORAL SCH ×3 (11:04→19:27)
[2017-01-18] MEDS: Valproic Acid 250mg/5ml Liquid GT SCH ×2 (11:06→21:11)
[2017-01-18] MEDS: Aspirin Baby 81mg NG SCH (11:06)
[2017-01-18] MEDS: Lactulose 20gm/30ml UDC ORAL SCH ×2 (11:06→19:25)
[2017-01-18] MEDS: levETIRAcetam 500mg/5ml Liquid NG SCH ×2 (11:07→21:12)
[2017-01-18] MEDS: Pantoprazole Inj IVP SCH (11:08)
[2017-01-18] MEDS: Vitamin A&D Oint 2oz Tube TOPIC SCH ×2 (11:23→21:13)
[2017-01-18 11:53] VITALS: BP 100/54
--- NOTE | 2017-01-18 12:04 | General Progress Note ---
Assessment/Plan Status: stable Status Narrative K low Assessment/Plan status: ESRD next HD 08/15, in process HyperKalemia- resolved after HD HTN DM Dementia CVA Sz disorder Plan; HD done 12/17 K Suppl.. Via GT Phos binders per consultants Subjective ROS Limited/Unobtainable: No Constitutional: Reports: malaise, weakness Allergies: Coded Allergies: No Known Allergies (Verified , 03/31/11) Objective Last 24 Hour Vital Signs Date Time Temp Pulse Resp B/P Pulse Ox O2 Delivery O2 Flow Rate FiO2 01/18/17 11:53 96.6 74 18 100/54 100 Room Air 01/18/17 09:22 66 18 Room Air 01/18/17 09:00 76 100/54 01/18/17 09:00 76 100/54 01/18/17 08:00 97.2 79 18 113/55 97 Room Air 01/18/17 05:13 121/61 01/18/17 04:00 97.9 81 18 121/61 94 Room Air 01/17/17 23:58 97.9 81 18 108/59 93 Room Air 01/17/17 21:40 118/71 01/17/17 21:39 105 118/71 01/17/17 20:00 98.1 105 18 118/71 99 Room Air 01/17/17 17:18 88 16 Room Air 01/17/17 16:00 97.3 87 20 102/61 98 Room Air 01/17/17 13:44 104/68 01/17/17 13:01 97.3 88 18 104/68 98 Room Air Intake and Output 01/17/17 01/18/17 19:00 07:00 Intake Total 400 ml 650 ml Output Total 2150 ml 2 ml Balance -1750 ml 648 ml Free Water 60 ml IV Total 110 ml Tube Feeding 400 ml 480 ml Output Urine Total 50 ml Stool Total 2 ml Hemodialysis UF 2100 ml # Bowel Movements 2 Laboratory Tests 01/18/17 06:20: White Blood Count 21.9H, Red Blood Count 2.48L, Hemoglobin 7.7L, Hematocrit 23.8L, Mean Corpuscular Volume 96, Mean Corpuscular Hemoglobin 31.3H, Mean Corpuscular Hemoglobin Concent 32.5, Red Cell Distribution Width 13.9, Platelet Count 278, Mean Platelet Volume 6.7, Neutrophils (%) (Auto) , Lymphocytes (%) ( Auto) , Monocytes (%) (Auto) , Eosinophils (%) (Auto) , Basophils (%) (Auto) , Differential Total Cells Counted 100, Neutrophils % (Manual) 78H, Lymphocytes % (Manual) 8L, Monocytes % (Manual) 12H, Eosinophils % (Manual) 2, Basophils % ( Manual) 0, Band Neutrophils 0, Platelet Estimate Adequate, Platelet Morphology Normal, Hypochromasia 1+, Anisocytosis 1+, Sodium Level 142, Potassium Level 2.7 *L, Chloride Level 91L, Carbon Dioxide Level 29, Anion Gap 22H, Blood Urea Nitrogen 64H, Creatinine 7.1H, Estimat Glomerular Filtration Rate 9.5, Glucose Level 148H, Uric Acid 5.3, Calcium Level 9.4, Phosphorus Level 4.9H, Total Bilirubin 0.5, Aspartate Amino Transf (AST/SGOT) 25, Alanine Aminotransferase ( ALT/SGPT) 7, Alkaline Phosphatase 105, Ammonia 19, Lactate Dehydrogenase 181, Total Protein 7.8, Albumin 3.3L, Globulin 4.5, Albumin/Globulin Ratio 0.7L, Carcinoembryonic Antigen 9.3H, CA 19-9 Antigen 63.65H, Blastomyces Ab Immunodiffusion [Pending], Coccidioides Antibody (Comp Fix) [Pending], Cryptococcus Antigen [Pending], Histoplasma Mycelial Antibody [Pending], Histoplasma Antibody w Mycelial Ag [Pending], Histoplasma Antibody with Yeast Ag [Pending], TB Test (T-Spot) [Pending], TB Test Nil Control (T-Spot) [Pending] , TB Test Panel A (T-Spot) [Pending], TB Test Panel B (T-Spot) [Pending], TB Test Positive Control (T-Spot) [Pending] Height (Feet): 6 Height (Inches): 0.00 Weight (Pounds): 200 General Appearance: no apparent distress Objective other PE not changed SHILOH CABRAL Jan 18, 2017 12:04
[2017-01-18] MEDS ORDERED: KCl 10% 40mEq/30ml liquid NG ONE (13:00)
--- NOTE | 2017-01-18 13:32 | GI Progress Note ---
Assessment/Plan Problems: (1) Encounter for PEG (percutaneous endoscopic gastrostomy) ICD Codes: Z43.1 - Encounter for attention to gastrostomy SNOMED: 760004304, 299391714 (2) Diabetes ICD Codes: E11.9 - Type 2 diabetes mellitus without complications SNOMED: 50211953 Status: unchanged Status Narrative Discussed with Dr. Meza. Assessment/Plan Assessment - Anemia - rising WBC concerning - presumed due to cavitary lung masses seen on CT - CRF - dysphagia - OB stool negative - elevated CEA 9.3 - elevated CA19-9 63.65 Recommendations - follow WBC - monitor H&H, transfuse prn - cavitary lung masses per pulmonary - fu C diff - abx - GTFs per dietary - airborne isolation r/o TB - fu labs Subjective Subjective limited Objective Last 24 Hour Vital Signs Date Time Temp Pulse Resp B/P Pulse Ox O2 Delivery O2 Flow Rate FiO2 01/18/17 11:53 96.6 74 18 100/54 100 Room Air 01/18/17 09:22 66 18 Room Air 01/18/17 09:00 76 100/54 01/18/17 09:00 76 100/54 01/18/17 08:00 97.2 79 18 113/55 97 Room Air 01/18/17 05:13 121/61 01/18/17 04:00 97.9 81 18 121/61 94 Room Air 01/17/17 23:58 97.9 81 18 108/59 93 Room Air 01/17/17 21:40 118/71 01/17/17 21:39 105 118/71 01/17/17 20:00 98.1 105 18 118/71 99 Room Air 01/17/17 17:18 88 16 Room Air 01/17/17 16:00 97.3 87 20 102/61 98 Room Air 01/17/17 13:44 104/68 Intake and Output 01/17/17 01/18/17 19:00 07:00 Intake Total 400 ml 650 ml Output Total 2150 ml 2 ml Balance -1750 ml 648 ml Free Water 60 ml IV Total 110 ml Tube Feeding 400 ml 480 ml Output Urine Total 50 ml Stool Total 2 ml Hemodialysis UF 2100 ml # Bowel Movements 2 Laboratory Tests Test 01/18/17 06:20 White Blood Count 21.9 K/UL (4.8-10.8) H Red Blood Count 2.48 M/UL (4.70-6.10) L Hemoglobin 7.7 G/DL (14.2-18.0) L Hematocrit 23.8 % (42.0-52.0) L Mean Corpuscular Volume 96 FL (80-99) Mean Corpuscular Hemoglobin 31.3 PG (27.0-31.0) H Mean Corpuscular Hemoglobin Concent 32.5 G/DL (32.0-36.0) Red Cell Distribution Width 13.9 % (11.6-14.8) Platelet Count 278 K/UL (150-450) Mean Platelet Volume 6.7 FL (6.5-10.1) Neutrophils (%) (Auto) % (45.0-75.0) Lymphocytes (%) (Auto) % (20.0-45.0) Monocytes (%) (Auto) % (1.0-10.0) Eosinophils (%) (Auto) % (0.0-3.0) Basophils (%) (Auto) % (0.0-2.0) Differential Total Cells Counted 100 Neutrophils % (Manual) 78 % (45-75) H Lymphocytes % (Manual) 8 % (20-45) L Monocytes % (Manual) 12 % (1-10) H Eosinophils % (Manual) 2 % (0-3) Basophils % (Manual) 0 % (0-2) Band Neutrophils 0 % (0-8) Platelet Estimate Adequate Platelet Morphology Normal Hypochromasia 1+ Anisocytosis 1+ Sodium Level 142 mEQ/L (135-145) Potassium Level 2.7 mEQ/L (3.4-4.9) *L Chloride Level 91 mEQ/L (98-107) L Carbon Dioxide Level 29 mEQ/L (20-30) Anion Gap 22 (5-15) H Blood Urea Nitrogen 64 mg/dL (7-23) H Creatinine 7.1 mg/dL (0.7-1.2) H Estimat Glomerular Filtration Rate 9.5 mL/min (>60) Glucose Level 148 mg/dL (74-106) H Uric Acid 5.3 mg/dL (3.0-7.5) Calcium Level 9.4 mg/dL (8.6-10.2) Phosphorus Level 4.9 mg/dL (2.5-4.8) H Total Bilirubin 0.5 mg/dL (0.0-1.2) Aspartate Amino Transf (AST/SGOT) 25 U/L (5-40) Alanine Aminotransferase (ALT/SGPT) 7 U/L (3-41) Alkaline Phosphatase 105 U/L (40-129) Ammonia 19 umol/L (16-60) Lactate Dehydrogenase 181 U/L (135-230) Total Protein 7.8 g/dL (6.6-8.7) Albumin 3.3 g/dL (3.5-5.2) L Globulin 4.5 g/dL Albumin/Globulin Ratio 0.7 (1.0-2.7) L Carcinoembryonic Antigen 9.3 ng/mL H CA 19-9 Antigen 63.65 U/mL (< 37) H Blastomyces Ab Immunodiffusion Pending Coccidioides Antibody (Comp Fix) Pending Cryptococcus Antigen Pending Histoplasma Mycelial Antibody Pending Histoplasma Antibody w Mycelial Ag Pending Histoplasma Antibody with Yeast Ag Pending TB Test (T-Spot) Pending TB Test Nil Control (T-Spot) Pending TB Test Panel A (T-Spot) Pending TB Test Panel B (T-Spot) Pending TB Test Positive Control (T-Spot) Pending Height (Feet): 6 Height (Inches): 0.00 Weight (Pounds): 200 General Appearance: no apparent distress, lethargic Cardiovascular: normal rate Respiratory/Chest: normal breath sounds, no respiratory distress Abdominal Exam: soft, GT site - c/d/i Objective Endoscopy Procedure Note Indication for Procedure: dysphagia Procedures Performed: PEG Operative Findings/Diagnosis: GT placed NANCY MORELOS - Jan 14, 2017 13:39 Cally Candelaria N.Gayathri Jan 18, 2017 13:32
[2017-01-18] MEDS: HydrALAZINE 25mg tab ORAL SCH ×2 (14:00→21:12)
[2017-01-18 16:00] VITALS: BP 112/57
--- NOTE | 2017-01-18 18:33 | Pulmonology Progress Note ---
Assessment/Plan Problems: (1) Pneumonia (2) Cavitary lung disease (3) Acute encephalopathy (4) ESRF (end stage renal failure) (5) HTN (hypertension) (6) Hyperkalemia (7) Diabetes Assessment/Plan isolation because of multiple pulmonary lesions sputum induction serology for fungal infectoins LDH, tumro markers, f/u wbc continue antibiotics HD by nephrology Subjective ROS Limited/Unobtainable: No Interval Events: dialyzed tody Allergies: Coded Allergies: No Known Allergies (Verified , 03/31/11) Objective Last 24 Hour Vital Signs Date Time Temp Pulse Resp B/P Pulse Ox O2 Delivery O2 Flow Rate FiO2 01/18/17 16:00 96.8 85 18 112/57 99 Room Air 01/18/17 14:00 112/57 01/18/17 11:53 96.6 74 18 100/54 100 Room Air 01/18/17 09:22 66 18 Room Air 01/18/17 09:00 76 100/54 01/18/17 09:00 76 100/54 01/18/17 08:00 97.2 79 18 113/55 97 Room Air 01/18/17 05:13 121/61 01/18/17 04:00 97.9 81 18 121/61 94 Room Air 01/17/17 23:58 97.9 81 18 108/59 93 Room Air 01/17/17 21:40 118/71 01/17/17 21:39 105 118/71 01/17/17 20:00 98.1 105 18 118/71 99 Room Air Intake and Output 01/17/17 01/18/17 19:00 07:00 Intake Total 400 ml 650 ml Output Total 2150 ml 2 ml Balance -1750 ml 648 ml Free Water 60 ml IV Total 110 ml Tube Feeding 400 ml 480 ml Output Urine Total 50 ml Stool Total 2 ml Hemodialysis UF 2100 ml # Bowel Movements 2 General Appearance: WD/WN HEENT: normocephalic, atraumatic Respiratory/Chest: chest wall non-tender, lungs clear Cardiovascular: normal peripheral pulses, normal rate Abdomen: normal bowel sounds, soft, non tender, no organomegaly Genitourinary: normal external genitalia Extremities: no cyanosis Microbiology Date/Time Source Procedure Growth Status 01/16/17 10:45 Blood Blood Culture - Preliminary NO GROWTH AFTER 24 HOURS Resulted 01/16/17 10:35 Blood Blood Culture - Preliminary NO GROWTH AFTER 24 HOURS Resulted 01/16/17 14:00 Indwelling Cath Urine Culture - Preliminary Gram Negative Bacillus 1 Resulted Laboratory Tests 01/18/17 06:20: White Blood Count 21.9H, Red Blood Count 2.48L, Hemoglobin 7.7L, Hematocrit 23.8L, Mean Corpuscular Volume 96, Mean Corpuscular Hemoglobin 31.3H, Mean Corpuscular Hemoglobin Concent 32.5, Red Cell Distribution Width 13.9, Platelet Count 278, Mean Platelet Volume 6.7, Neutrophils (%) (Auto) , Lymphocytes (%) ( Auto) , Monocytes (%) (Auto) , Eosinophils (%) (Auto) , Basophils (%) (Auto) , Differential Total Cells Counted 100, Neutrophils % (Manual) 78H, Lymphocytes % (Manual) 8L, Monocytes % (Manual) 12H, Eosinophils % (Manual) 2, Basophils % ( Manual) 0, Band Neutrophils 0, Platelet Estimate Adequate, Platelet Morphology Normal, Hypochromasia 1+, Anisocytosis 1+, Sodium Level 142, Potassium Level 2.7 *L, Chloride Level 91L, Carbon Dioxide Level 29, Anion Gap 22H, Blood Urea Nitrogen 64H, Creatinine 7.1H, Estimat Glomerular Filtration Rate 9.5, Glucose Level 148H, Uric Acid 5.3, Calcium Level 9.4, Phosphorus Level 4.9H, Total Bilirubin 0.5, Aspartate Amino Transf (AST/SGOT) 25, Alanine Aminotransferase ( ALT/SGPT) 7, Alkaline Phosphatase 105, Ammonia 19, Lactate Dehydrogenase 181, Total Protein 7.8, Albumin 3.3L, Globulin 4.5, Albumin/Globulin Ratio 0.7L, Carcinoembryonic Antigen 9.3H, CA 19-9 Antigen 63.65H, Blastomyces Ab Immunodiffusion [Pending], Coccidioides Antibody (Comp Fix) [Pending], Cryptococcus Antigen [Pending], Histoplasma Mycelial Antibody [Pending], Histoplasma Antibody w Mycelial Ag [Pending], Histoplasma Antibody with Yeast Ag [Pending], TB Test (T-Spot) [Pending], TB Test Nil Control (T-Spot) [Pending] , TB Test Panel A (T-Spot) [Pending], TB Test Panel B (T-Spot) [Pending], TB Test Positive Control (T-Spot) [Pending] Current Medications Medications (Trade) Dose Ordered Sig/Tracy Route PRN Reason Start Time Stop Time Status Last Admin Dose Admin Acetaminophen (Tylenol) 650 mg Q4H PRN ORAL T>100.5 01/13/17 18:45 02/12/17 18:44 Albuterol/ Ipratropium (DuoNeb 0.5-3(2.5)mg/3ml) 3 ml Q6H PRN HHN Shortness of Breath 01/13/17 20:45 01/18/17 20:44 Amlodipine Besylate (Norvasc) 2.5 mg DAILY ORAL 01/19/17 09:00 02/18/17 08:59 Aspirin (ASA) 81 mg DAILY NG 01/14/17 09:00 02/13/17 08:59 01/18/17 11:06 Clonidine HCl (Catapres) 0.1 mg Q4H PRN ORAL SBP>160 01/13/17 18:45 02/12/17 18:44 Heparin Sodium (Porcine) (Heparin 5000 units/ml) 5,000 units EVERY 12 HOURS SUBQ 01/13/17 21:00 02/12/17 20:59 01/17/17 21:42 Hydralazine HCl (Apresoline) 25 mg EVERY 8 HOURS ORAL 01/18/17 14:00 02/17/17 13:59 Labetalol HCl (Normodyne) 200 mg EVERY 12 HOURS ORAL 01/13/17 21:00 02/12/17 20:59 01/17/17 21:39 Lactulose (Cephulac) 30 gm BID ORAL 01/17/17 10:30 02/16/17 10:29 01/18/17 11:06 Levetiracetam (Keppra) 500 mg Q12HR NG 01/13/17 21:00 02/12/17 20:59 01/18/17 11:07 Morphine Sulfate (Morphine Sulfate) 1 mg Q4H PRN IVP PAIN 4-10 01/13/17 18:45 01/20/17 18:44 Ondansetron HCl (Zofran) 4 mg Q6H PRN IVP Nausea & Vomiting 01/13/17 20:45 02/12/17 20:44 Pantoprazole 40 mg 40 mg DAILY IVP 01/15/17 21:00 02/14/17 20:59 01/18/17 11:08 Piperacillin Sod/ Tazobactam Sod/ Sodium Chloride (Zosyn/Sodium Chloride) 55 ml @ 110 mls/hr Q8HR IV 01/16/17 11:30 01/21/17 11:29 01/18/17 13:27 Polyethylene Glycol (Miralax) 17 gm HSPRN PRN ORAL Constipation 01/13/17 21:00 02/12/17 20:59 Sevelamer Carbonate (Renvela) 2,400 mg THREE TIMES A DAY ORAL 01/14/17 18:00 02/13/17 17:59 01/18/17 15:13 Trazodone HCl (Desyrel) 50 mg BEDTIME ORAL 01/13/17 21:00 02/12/17 20:59 01/17/17 21:39 Valproic Acid (Depakene) 250 mg Q12HR GT 01/13/17 21:00 02/12/17 20:59 01/18/17 11:06 Vitamin A/Vitamin D (A & D Oint) 1 applic EVERY 12 HOURS TOPIC 01/13/17 21:00 02/12/17 20:59 01/18/17 11:23 Zolpidem Tartrate (Ambien) 5 mg HSPRN PRN ORAL Insomnia 01/13/17 21:00 02/12/17 20:59 MITUL NAVARRO Jan 18, 2017 18:33
[2017-01-18 20:00] VITALS: BP 133/77
[2017-01-18] MEDS: TraZODone 50mg tab ORAL SCH (21:12)
[2017-01-19] VITALS (7 sets, daily range): BP systolic 107–135; BP diastolic 60–71
[2017-01-19] MEDS: Piperacillin/Tazobactam 2.25 GM in NS 55 ML IV SCH ×3 (05:30→22:16)
[2017-01-19] MEDS: HydrALAZINE 25mg tab ORAL SCH ×3 (05:30→22:00)
[2017-01-19] MEDS: Lactulose 20gm/30ml UDC ORAL SCH ×2 (09:21→18:00)
[2017-01-19] MEDS: levETIRAcetam 500mg/5ml Liquid NG SCH ×2 (09:21→20:14)
[2017-01-19] MEDS: Renvela 800mg Pkt ORAL SCH ×3 (09:21→19:05)
[2017-01-19] MEDS: Aspirin Baby 81mg NG SCH (09:21)
[2017-01-19] MEDS: Valproic Acid 250mg/5ml Liquid GT SCH ×2 (09:21→20:14)
[2017-01-19] MEDS: Pantoprazole Inj IVP SCH (09:22)
[2017-01-19] MEDS: Labetalol 200mg tab ORAL SCH ×2 (09:22→20:15)
[2017-01-19] MEDS: Vitamin A&D Oint 2oz Tube TOPIC SCH ×2 (09:23→20:16)
[2017-01-19] MEDS: Heparin 5000 units/ml inj SUBQ SCH ×2 (09:33→20:15)
[2017-01-19 10:13] LABS: MEAN CORPUSCULAR HEMOGLOBIN 30.8 PG (27.0-31.0); MEAN CORPUSCULAR VOLUME 100 FL (80-99); MEAN PLATELET VOLUME 6.8 FL (6.5-10.1); PLATELET COUNT 327 K/UL (150-450); RED BLOOD COUNT 2.42 M/UL (4.70-6.10); RED CELL DISTRIBUTION WIDTH 14.2 % (11.6-14.8)
[2017-01-19 10:14] LABS: WHITE BLOOD COUNT 24.6 K/UL (4.8-10.8)
[2017-01-19 10:33] LABS: ALBUMIN/GLOBULIN RATIO 0.7 (1.0-2.7); CALCIUM 9.8 mg/dL (8.6-10.2); CREATININE 9.1 mg/dL (0.7-1.2); CRP QUANT 8.1 mg/dL (< 0.5); GLOMERULAR FILTRATION RATE 7.2 mL/min (>60); PHOSPHORUS 4.8 mg/dL (2.5-4.8); POTASSIUM 3.1 mEQ/L (3.4-4.9); TOTAL PROTEIN 7.8 g/dL (6.6-8.7)
[2017-01-19 11:04] LABS: BAND NEUTROPHILS % (MANUAL) 0 % (0-8); BASOPHILS % (MANUAL) 0 % (0-2); EOSINOPHILS % (MANUAL) 4 % (0-3); HYPOCHROMASIA 1+; LYMPHOCYTES % (MANUAL) 5 % (20-45); MACROCYTES 1+; NEUTROPHILS % (MANUAL) 81 % (45-75); PLATELET ESTIMATE ADEQUATE; PLATELET MORPHOLOGY NORMAL; TOTAL CELLS COUNTED 100
--- NOTE | 2017-01-19 11:30 | GI Progress Note ---
Assessment/Plan Problems: (1) Encounter for PEG (percutaneous endoscopic gastrostomy) ICD Codes: Z43.1 - Encounter for attention to gastrostomy SNOMED: 349241513, 176650026 (2) Diabetes ICD Codes: E11.9 - Type 2 diabetes mellitus without complications SNOMED: 54862676 Status: unchanged Status Narrative Discussed with Dr. Meza. Assessment/Plan Assessment - Anemia - rising WBC - presumed due to cavitary lung masses seen on CT - CRF - dysphagia - OB stool negative - elevated CEA 9.3 - elevated CA19-9 63.65 Recommendations - follow WBC - monitor H&H, transfuse prn - cavitary lung masses per pulmonary - fu C diff - abx - GTFs per dietary - airborne isolation r/o TB - fu labs Subjective Subjective limited Objective Last 24 Hour Vital Signs Date Time Temp Pulse Resp B/P Pulse Ox O2 Delivery O2 Flow Rate FiO2 01/19/17 09:22 74 117/64 01/19/17 09:22 74 117/64 01/19/17 08:10 97.4 74 18 117/64 95 Room Air 01/19/17 05:30 107/62 01/19/17 04:00 97.3 73 18 107/62 97 Room Air 01/19/17 00:00 97.9 77 18 119/66 96 Room Air 01/18/17 21:12 133/77 01/18/17 21:12 100 133/77 01/18/17 20:00 98.1 100 18 133/77 99 Room Air 01/18/17 19:30 70 18 Room Air 21 01/18/17 16:00 96.8 85 18 112/57 99 Room Air 01/18/17 14:00 112/57 01/18/17 11:53 96.6 74 18 100/54 100 Room Air Intake and Output 01/18/17 01/19/17 19:00 07:00 Intake Total 480 ml 650 ml Balance 480 ml 650 ml Free Water 60 ml IV Total 110 ml Tube Feeding 480 ml 480 ml # Bowel Movements 2 Laboratory Tests Test 01/19/17 09:50 White Blood Count 24.6 K/UL (4.8-10.8) *H Red Blood Count 2.42 M/UL (4.70-6.10) L Hemoglobin 7.5 G/DL (14.2-18.0) L Hematocrit 24.1 % (42.0-52.0) L Mean Corpuscular Volume 100 FL (80-99) H Mean Corpuscular Hemoglobin 30.8 PG (27.0-31.0) Mean Corpuscular Hemoglobin Concent 31.0 G/DL (32.0-36.0) L Red Cell Distribution Width 14.2 % (11.6-14.8) Platelet Count 327 K/UL (150-450) Mean Platelet Volume 6.8 FL (6.5-10.1) Neutrophils (%) (Auto) % (45.0-75.0) Lymphocytes (%) (Auto) % (20.0-45.0) Monocytes (%) (Auto) % (1.0-10.0) Eosinophils (%) (Auto) % (0.0-3.0) Basophils (%) (Auto) % (0.0-2.0) Differential Total Cells Counted 100 Neutrophils % (Manual) 81 % (45-75) H Lymphocytes % (Manual) 5 % (20-45) L Monocytes % (Manual) 10 % (1-10) Eosinophils % (Manual) 4 % (0-3) H Basophils % (Manual) 0 % (0-2) Band Neutrophils 0 % (0-8) Platelet Estimate Adequate Platelet Morphology Normal Hypochromasia 1+ Macrocytosis 1+ Sodium Level 147 mEQ/L (135-145) H Potassium Level 3.1 mEQ/L (3.4-4.9) L Chloride Level 95 mEQ/L (98-107) L Carbon Dioxide Level 25 mEQ/L (20-30) Anion Gap 27 (5-15) H Blood Urea Nitrogen 77 mg/dL (7-23) H Creatinine 9.1 mg/dL (0.7-1.2) H Estimat Glomerular Filtration Rate 7.2 mL/min (>60) Glucose Level 148 mg/dL (74-106) H Calcium Level 9.8 mg/dL (8.6-10.2) Phosphorus Level 4.8 mg/dL (2.5-4.8) Total Bilirubin 0.6 mg/dL (0.0-1.2) Aspartate Amino Transf (AST/SGOT) 28 U/L (5-40) Alanine Aminotransferase (ALT/SGPT) 6 U/L (3-41) Alkaline Phosphatase 97 U/L (40-129) C-Reactive Protein, Quantitative 8.1 mg/dL (< 0.5) H Pro-B-Type Natriuretic Peptide 5885 pg/mL (0-125) H Total Protein 7.8 g/dL (6.6-8.7) Albumin 3.4 g/dL (3.5-5.2) L Globulin 4.4 g/dL Albumin/Globulin Ratio 0.7 (1.0-2.7) L Height (Feet): 6 Height (Inches): 0.00 Weight (Pounds): 200 General Appearance: alert Cardiovascular: normal rate Respiratory/Chest: no respiratory distress Abdominal Exam: site - c/d/i Objective Endoscopy Procedure Note Indication for Procedure: dysphagia Procedures Performed: PEG Operative Findings/Diagnosis: NANCY Singleton - Jan 14, 2017 13:39 Cally Candelaria N.P. Jan 19, 2017 11:30
--- NOTE | 2017-01-19 15:16 | Diagnostic Imaging Report ---
Clinical Indication: Chest pain, pneumonia, history of cavitary lung disease Technique: IV administration nonionic contrast. Spiral acquisition obtained through the chest. Multiplanar reconstructions generated. Total dose length product 838 mGycm. CTDIvol(s) 8, 56, 20 mGy. Dose reduction achieved using automated exposure control Comparison: None. Reference is made to earlier abdomen pelvis CT of 01/16/2017. Findings: A linear focus of presumed scarring is seen in the posterior right upper lobe. A few small nodules, measuring up to 6 mm diameter, one with cavitation, is seen in the inferior right upper lobe. A 10 mm cavitary lesion is seen within the right middle lobe. As described on the prior CT scan, there is a 4 cm mass in the right costophrenic sulcus with a central cavity. Multiple other nodules/masses are seen within the right lower lobe, some with areas of cavitation. There is considerable bronchiectasis in the inferior right lower lobe. There is equivocally trace pleural fluid on the right. The left lung is clear. The heart size is upper limits of normal. There is evidence of left ventricular muscular hypertrophy. No pericardial effusion. There are coronary artery calcifications. No mediastinal or hilar mass or adenopathy. The included portions of the thyroid are unremarkable. No axillary or supraclavicular mass or adenopathy. There is bilateral gynecomastia. Limited views of the upper abdomen demonstrate a gastrostomy, atrophic kidneys, and gallbladder calculi Impression: Multiple nodules, some with cavitation, predominantly in the right lower lobe but also in the right upper and middle lobes. Findings are worrisome for infection such as seen in tuberculosis. Other infectious etiologies, neoplasm also possible. Associated bronchiectasis limited to the right lower lobe indicates there is also a chronic component. There is also reticular interstitial disease which is nonspecific as regards acuity and etiology. Evidence of left ventricular muscular hypertrophy and coronary artery calcifications graph equivocal trace right pleural effusion Gynecomastia Incidental findings of gastrostomy, bilateral renal atrophy, cholelithiasis The CT scanner at [facility] is accredited by the [employer] and the scans are performed using protocols designed to limit radiation exposure to as low as reasonably achievable to attain images of sufficient resolution adequate for diagnostic evaluation.
--- NOTE | 2017-01-19 15:51 | Infectious Diseases Prog Note ---
Assessment/Plan Assessment/Plan This is a 66-year-old F Leukocytosis Pneumonia Scx: EColi UTI EColi Cavitary Lung lesions , multiple RO TB, Fungal Cancer CT: Multiple nodules/masses at the right lung base, many with cavitation.Associated reticular interstitial changes and bronchiectasis. Findings are worrisome RO SBE Altered mental status ESRD on hemodialysis SP G-tube placement on 01/14/2017 HTN Dementia anemia AV shunt Deep tissue injury and pressure ulcers in multiple places Diabetes P: cont pt on IV Zosyn d# 5 / , Add IV Vanco d# 1 Monitor CBC Monitor BMP Monitor LFT Monitor C- xray Monitor Blood Cx coccido Ab, Crypt Ag, AFB x3 QuantiFeron Gold TB Airborne isolation 2DEcho Subjective Constitutional: Denies: anorexia, chills, drenching sweats, fatigue, fever, no symptoms, other Allergies: Coded Allergies: No Known Allergies (Verified , 03/31/11) Objective Vital Signs Last 24 Hour Vital Signs Date Time Temp Pulse Resp B/P Pulse Ox O2 Delivery O2 Flow Rate FiO2 01/19/17 13:43 115/65 01/19/17 12:11 95.6 70 18 115/65 98 Room Air 01/19/17 09:22 74 117/64 01/19/17 09:22 74 117/64 01/19/17 08:10 97.4 74 18 117/64 95 Room Air 01/19/17 05:30 107/62 01/19/17 04:00 97.3 73 18 107/62 97 Room Air 01/19/17 00:00 97.9 77 18 119/66 96 Room Air 01/18/17 21:12 133/77 01/18/17 21:12 100 133/77 01/18/17 20:00 98.1 100 18 133/77 99 Room Air 01/18/17 19:30 70 18 Room Air 21 01/18/17 16:00 96.8 85 18 112/57 99 Room Air Height (Feet): 6 Height (Inches): 0.00 Weight (Pounds): 200 HEENT: anicteric Respiratory/Chest: normal breath sounds Cardiovascular: regular rhythm Abdomen: no organomegaly Laboratory Tests Test 01/19/17 09:50 White Blood Count 24.6 K/UL (4.8-10.8) *H Red Blood Count 2.42 M/UL (4.70-6.10) L Hemoglobin 7.5 G/DL (14.2-18.0) L Hematocrit 24.1 % (42.0-52.0) L Mean Corpuscular Volume 100 FL (80-99) H Mean Corpuscular Hemoglobin 30.8 PG (27.0-31.0) Mean Corpuscular Hemoglobin Concent 31.0 G/DL (32.0-36.0) L Red Cell Distribution Width 14.2 % (11.6-14.8) Platelet Count 327 K/UL (150-450) Mean Platelet Volume 6.8 FL (6.5-10.1) Neutrophils (%) (Auto) % (45.0-75.0) Lymphocytes (%) (Auto) % (20.0-45.0) Monocytes (%) (Auto) % (1.0-10.0) Eosinophils (%) (Auto) % (0.0-3.0) Basophils (%) (Auto) % (0.0-2.0) Differential Total Cells Counted 100 Neutrophils % (Manual) 81 % (45-75) H Lymphocytes % (Manual) 5 % (20-45) L Monocytes % (Manual) 10 % (1-10) Eosinophils % (Manual) 4 % (0-3) H Basophils % (Manual) 0 % (0-2) Band Neutrophils 0 % (0-8) Platelet Estimate Adequate Platelet Morphology Normal Hypochromasia 1+ Macrocytosis 1+ Sodium Level 147 mEQ/L (135-145) H Potassium Level 3.1 mEQ/L (3.4-4.9) L Chloride Level 95 mEQ/L (98-107) L Carbon Dioxide Level 25 mEQ/L (20-30) Anion Gap 27 (5-15) H Blood Urea Nitrogen 77 mg/dL (7-23) H Creatinine 9.1 mg/dL (0.7-1.2) H Estimat Glomerular Filtration Rate 7.2 mL/min (>60) Glucose Level 148 mg/dL (74-106) H Calcium Level 9.8 mg/dL (8.6-10.2) Phosphorus Level 4.8 mg/dL (2.5-4.8) Total Bilirubin 0.6 mg/dL (0.0-1.2) Aspartate Amino Transf (AST/SGOT) 28 U/L (5-40) Alanine Aminotransferase (ALT/SGPT) 6 U/L (3-41) Alkaline Phosphatase 97 U/L (40-129) C-Reactive Protein, Quantitative 8.1 mg/dL (< 0.5) H Pro-B-Type Natriuretic Peptide 5885 pg/mL (0-125) H Total Protein 7.8 g/dL (6.6-8.7) Albumin 3.4 g/dL (3.5-5.2) L Globulin 4.4 g/dL Albumin/Globulin Ratio 0.7 (1.0-2.7) L Current Medications Medications (Trade) Dose Ordered Sig/Tracy Route PRN Reason Start Time Stop Time Status Last Admin Dose Admin Acetaminophen (Tylenol) 650 mg Q4H PRN ORAL T>100.5 01/13/17 18:45 02/12/17 18:44 Amlodipine Besylate (Norvasc) 2.5 mg DAILY ORAL 01/19/17 09:00 02/18/17 08:59 01/19/17 09:22 Aspirin (ASA) 81 mg DAILY NG 01/14/17 09:00 02/13/17 08:59 01/19/17 09:21 Clonidine HCl (Catapres) 0.1 mg Q4H PRN ORAL SBP>160 01/13/17 18:45 02/12/17 18:44 Heparin Sodium (Porcine) (Heparin 5000 units/ml) 5,000 units EVERY 12 HOURS SUBQ 01/13/17 21:00 02/12/17 20:59 01/19/17 09:33 Hydralazine HCl (Apresoline) 25 mg EVERY 8 HOURS ORAL 01/18/17 14:00 02/17/17 13:59 01/19/17 13:43 Labetalol HCl (Normodyne) 200 mg EVERY 12 HOURS ORAL 01/13/17 21:00 02/12/17 20:59 01/19/17 09:22 Lactulose (Cephulac) 30 gm BID ORAL 01/17/17 10:30 02/16/17 10:29 01/19/17 09:21 Levetiracetam (Keppra) 500 mg Q12HR NG 01/13/17 21:00 02/12/17 20:59 01/19/17 09:21 Morphine Sulfate (Morphine Sulfate) 1 mg Q4H PRN IVP PAIN 4-10 01/13/17 18:45 01/20/17 18:44 Ondansetron HCl (Zofran) 4 mg Q6H PRN IVP Nausea & Vomiting 01/13/17 20:45 02/12/17 20:44 Pantoprazole 40 mg 40 mg DAILY IVP 01/15/17 21:00 02/14/17 20:59 01/19/17 09:22 Piperacillin Sod/ Tazobactam Sod/ Sodium Chloride (Zosyn/Sodium Chloride) 55 ml @ 110 mls/hr Q8HR IV 01/16/17 11:30 01/21/17 11:29 01/19/17 13:43 Polyethylene Glycol (Miralax) 17 gm HSPRN PRN ORAL Constipation 01/13/17 21:00 02/12/17 20:59 Sevelamer Carbonate (Renvela) 2,400 mg THREE TIMES A DAY ORAL 01/14/17 18:00 02/13/17 17:59 01/19/17 13:43 Trazodone HCl (Desyrel) 50 mg BEDTIME ORAL 01/13/17 21:00 02/12/17 20:59 01/18/17 21:12 Valproic Acid (Depakene) 250 mg Q12HR GT 01/13/17 21:00 02/12/17 20:59 01/19/17 09:21 Vitamin A/Vitamin D (A & D Oint) 1 applic EVERY 12 HOURS TOPIC 01/13/17 21:00 02/12/17 20:59 01/19/17 09:23 Zolpidem Tartrate (Ambien) 5 mg HSPRN PRN ORAL Insomnia 01/13/17 21:00 02/12/17 20:59 HODAN KEITH M.D. Jan 19, 2017 15:51
[2017-01-19] MEDS ORDERED: KCl 10% 40mEq/30ml liquid NG ONE (17:00)
--- NOTE | 2017-01-19 17:58 | Pulmonology Progress Note ---
Assessment/Plan Problems: (1) Pneumonia (2) Cavitary lung disease (3) Acute encephalopathy (4) ESRF (end stage renal failure) (5) HTN (hypertension) (6) Hyperkalemia (7) Diabetes Assessment/Plan isolation because of multiple pulmonary lesions sputum induction serology for fungal infectoins LDH, tumro markers, f/u wbc, rising continue antibiotics HD by nephrology, hd prn no sputum yet available Subjective ROS Limited/Unobtainable: No Constitutional: Reports: no symptoms HEENT: Repors: no symptoms Respiratory: Reports: no symptoms Allergies: Coded Allergies: No Known Allergies (Verified , 03/31/11) Objective Last 24 Hour Vital Signs Date Time Temp Pulse Resp B/P Pulse Ox O2 Delivery O2 Flow Rate FiO2 01/19/17 16:00 97.5 79 18 115/71 98 Room Air 01/19/17 13:43 115/65 01/19/17 12:11 95.6 70 18 115/65 98 Room Air 01/19/17 09:22 74 117/64 01/19/17 09:22 74 117/64 01/19/17 08:55 76 18 Room Air 21 01/19/17 08:10 97.4 74 18 117/64 95 Room Air 01/19/17 05:30 107/62 01/19/17 04:00 97.3 73 18 107/62 97 Room Air 01/19/17 00:00 97.9 77 18 119/66 96 Room Air 01/18/17 21:12 133/77 01/18/17 21:12 100 133/77 01/18/17 20:00 98.1 100 18 133/77 99 Room Air 01/18/17 19:30 70 18 Room Air 21 Intake and Output 01/18/17 01/19/17 19:00 07:00 Intake Total 480 ml 650 ml Balance 480 ml 650 ml Free Water 60 ml IV Total 110 ml Tube Feeding 480 ml 480 ml # Bowel Movements 2 Objective General Appearance: WD/WN HEENT: normocephalic Respiratory/Chest: chest wall non-tender, lungs clear Cardiovascular: normal peripheral pulses, normal rate Abdomen: normal bowel sounds Genitourinary: normal external genitalia Laboratory Tests 01/19/17 09:50: White Blood Count 24.6*H, Red Blood Count 2.42L, Hemoglobin 7.5L, Hematocrit 24.1L, Mean Corpuscular Volume 100H, Mean Corpuscular Hemoglobin 30.8, Mean Corpuscular Hemoglobin Concent 31.0L, Red Cell Distribution Width 14.2, Platelet Count 327, Mean Platelet Volume 6.8, Neutrophils (%) (Auto) , Lymphocytes (%) (Auto) , Monocytes (%) (Auto) , Eosinophils (%) (Auto) , Basophils (%) (Auto) , Differential Total Cells Counted 100, Neutrophils % ( Manual) 81H, Lymphocytes % (Manual) 5L, Monocytes % (Manual) 10, Eosinophils % ( Manual) 4H, Basophils % (Manual) 0, Band Neutrophils 0, Platelet Estimate Adequate, Platelet Morphology Normal, Hypochromasia 1+, Macrocytosis 1+, Sodium Level 147H, Potassium Level 3.1L, Chloride Level 95L, Carbon Dioxide Level 25, Anion Gap 27H, Blood Urea Nitrogen 77H, Creatinine 9.1H, Estimat Glomerular Filtration Rate 7.2, Glucose Level 148H, Calcium Level 9.8, Phosphorus Level 4.8 , Total Bilirubin 0.6, Aspartate Amino Transf (AST/SGOT) 28, Alanine Aminotransferase (ALT/SGPT) 6, Alkaline Phosphatase 97, C-Reactive Protein, Quantitative 8.1H, Pro-B-Type Natriuretic Peptide 5885H, Total Protein 7.8, Albumin 3.4L, Globulin 4.4, Albumin/Globulin Ratio 0.7L Current Medications Medications (Trade) Dose Ordered Sig/Tracy Route PRN Reason Start Time Stop Time Status Last Admin Dose Admin Acetaminophen (Tylenol) 650 mg Q4H PRN ORAL T>100.5 01/13/17 18:45 02/12/17 18:44 Amlodipine Besylate (Norvasc) 2.5 mg DAILY ORAL 01/19/17 09:00 02/18/17 08:59 01/19/17 09:22 Aspirin (ASA) 81 mg DAILY NG 01/14/17 09:00 02/13/17 08:59 01/19/17 09:21 Clonidine HCl (Catapres) 0.1 mg Q4H PRN ORAL SBP>160 01/13/17 18:45 02/12/17 18:44 Heparin Sodium (Porcine) (Heparin 5000 units/ml) 5,000 units EVERY 12 HOURS SUBQ 01/13/17 21:00 02/12/17 20:59 01/19/17 09:33 Hydralazine HCl (Apresoline) 25 mg EVERY 8 HOURS ORAL 01/18/17 14:00 02/17/17 13:59 01/19/17 13:43 Labetalol HCl (Normodyne) 200 mg EVERY 12 HOURS ORAL 01/13/17 21:00 02/12/17 20:59 01/19/17 09:22 Lactulose (Cephulac) 30 gm BID ORAL 01/17/17 10:30 02/16/17 10:29 01/19/17 09:21 Levetiracetam (Keppra) 500 mg Q12HR NG 01/13/17 21:00 02/12/17 20:59 01/19/17 09:21 Morphine Sulfate (Morphine Sulfate) 1 mg Q4H PRN IVP PAIN 4-10 01/13/17 18:45 01/20/17 18:44 Ondansetron HCl (Zofran) 4 mg Q6H PRN IVP Nausea & Vomiting 01/13/17 20:45 02/12/17 20:44 Pantoprazole 40 mg 40 mg DAILY IVP 01/15/17 21:00 02/14/17 20:59 01/19/17 09:22 Piperacillin Sod/ Tazobactam Sod/ Sodium Chloride (Zosyn/Sodium Chloride) 55 ml @ 110 mls/hr Q8HR IV 01/16/17 11:30 01/21/17 11:29 01/19/17 13:43 Polyethylene Glycol (Miralax) 17 gm HSPRN PRN ORAL Constipation 01/13/17 21:00 02/12/17 20:59 Sevelamer Carbonate (Renvela) 2,400 mg THREE TIMES A DAY ORAL 01/14/17 18:00 02/13/17 17:59 01/19/17 13:43 Trazodone HCl (Desyrel) 50 mg BEDTIME ORAL 01/13/17 21:00 02/12/17 20:59 01/18/17 21:12 Valproic Acid (Depakene) 250 mg Q12HR GT 01/13/17 21:00 02/12/17 20:59 01/19/17 09:21 Vancomycin HCl (Vanco rx to dose) 1 ea DAILY PRN MISC Per rx protocol 01/19/17 16:00 02/18/17 15:59 UNV Vitamin A/Vitamin D (A & D Oint) 1 applic EVERY 12 HOURS TOPIC 01/13/17 21:00 02/12/17 20:59 01/19/17 09:23 Zolpidem Tartrate (Ambien) 5 mg HSPRN PRN ORAL Insomnia 01/13/17 21:00 02/12/17 20:59 MITUL NAVARRO Jan 19, 2017 17:58
[2017-01-19] MEDS ORDERED: Vancomycin 1.5 GM/D5W 325 ML IVPB ONE ×2 (20:00)
[2017-01-19] MEDS: TraZODone 50mg tab ORAL SCH (20:14)
--- NOTE | 2017-01-20 01:58 | Operative Note - Dictated ---
DATE OF OPERATION: 01/14/2017 GASTROLOGY PROCEDURE NOTE PROCEDURE: Upper gastroendoscopy with gastrostomy tube placement. SURGEON: Kori Snell M.D. ANESTHESIA: Please see the separate anesthesiologist notes for details. PRE-ENDOSCOPY DIAGNOSIS: Dysphagia. POST-ENDOSCOPY DIAGNOSIS: Gastrostomy tube placement. DESCRIPTION OF PROCEDURE: The procedure, its risks, indications, alternatives, and possible complications were explained to the patient and informed consent was obtained. The patient was sedated in supine position. A diagnostic upper endoscope was introduced into the oropharynx and advanced to the duodenum. The endoscope was gradually withdrawn. The mucosa was examined carefully. A gastrostomy tube was placed using the standard pull technique. The patient tolerated the procedure well and sent to recovery in good condition. COMPLICATIONS: None. RECOMMENDATIONS: 1. Observe overnight. 2. Begin tube feeding. Kori Snell M.D. DR: MAURY JOB#: [id number] CC:
[2017-01-20 03:47] VITALS: BP 137/70
[2017-01-20] MEDS: Piperacillin/Tazobactam 2.25 GM in NS 55 ML IV SCH ×3 (05:47→21:29)
[2017-01-20] MEDS: HydrALAZINE 25mg tab ORAL SCH ×3 (05:47→21:33)
[2017-01-20 07:14] LABS: MEAN CORPUSCULAR HEMOGLOBIN 30.3 PG (27.0-31.0); MEAN CORPUSCULAR VOLUME 98 FL (80-99); MEAN PLATELET VOLUME 7.1 FL (6.5-10.1); PLATELET COUNT 310 K/UL (150-450); RED BLOOD COUNT 3.11 M/UL (4.70-6.10); RED CELL DISTRIBUTION WIDTH 15.1 % (11.6-14.8); WHITE BLOOD COUNT 19.8 K/UL (4.8-10.8)
[2017-01-20 07:48] LABS: ALBUMIN/GLOBULIN RATIO 0.6 (1.0-2.7); CALCIUM 10.2 mg/dL (8.6-10.2); CREATININE 10.5 mg/dL (0.7-1.2); GLOMERULAR FILTRATION RATE 6.1 mL/min (>60); POTASSIUM 3.9 mEQ/L (3.4-4.9); TOTAL PROTEIN 8.1 g/dL (6.6-8.7)
[2017-01-20 08:09] VITALS: BP 137/66
[2017-01-20 08:19] LABS: PHOSPHORUS 6.6 mg/dL (2.5-4.8); URIC ACID 9.1 mg/dL (3.0-7.5)
[2017-01-20] MEDS: Pantoprazole Inj IVP SCH (09:00)
[2017-01-20] MEDS: Valproic Acid 250mg/5ml Liquid GT SCH ×2 (09:00→21:01)
[2017-01-20] MEDS: Lactulose 20gm/30ml UDC ORAL SCH ×2 (09:00→18:28)
[2017-01-20] MEDS: Renvela 800mg Pkt ORAL SCH ×3 (09:00→18:27)
[2017-01-20] MEDS: Heparin 5000 units/ml inj SUBQ SCH ×2 (09:00→21:20)
[2017-01-20] MEDS: Labetalol 200mg tab ORAL SCH ×2 (09:00→21:02)
[2017-01-20] MEDS: levETIRAcetam 500mg/5ml Liquid NG SCH ×2 (09:00→21:01)
[2017-01-20] MEDS: Aspirin Baby 81mg NG SCH (09:00)
[2017-01-20 09:21] LABS: CRYPTOCOCCAL ANTIGEN SERUM Negative (Negative)
[2017-01-20] MEDS ORDERED: NaCl 3% 500ml 250 ML IVPB ONE (09:30)
[2017-01-20] MEDS: Vitamin A&D Oint 2oz Tube TOPIC SCH ×2 (09:48→21:29)
[2017-01-20 09:54] LABS: ANISOCYTOSIS 1+; BAND NEUTROPHILS % (MANUAL) 0 % (0-8); BASOPHILS % (MANUAL) 0 % (0-2); EOSINOPHILS % (MANUAL) 4 % (0-3); HYPOCHROMASIA 1+; LYMPHOCYTES % (MANUAL) 11 % (20-45); NEUTROPHILS % (MANUAL) 76 % (45-75); PLATELET ESTIMATE ADEQUATE; PLATELET MORPHOLOGY NORMAL; TOTAL CELLS COUNTED 100
--- NOTE | 2017-01-20 10:15 | Infectious Diseases Prog Note ---
Assessment/Plan Assessment/Plan This is a 66-year-old F Leukocytosis improving ( after adding IV Vanco ) Pneumonia Scx: EColi UTI EColi Cavitary Lung lesions , multiple RO TB, Fungal Cancer CT: Multiple nodules/masses at the right lung base, many with cavitation.Associated reticular interstitial changes and bronchiectasis. Findings are worrisome Crypt Ag, : neg RO SBE Altered mental status ESRD on hemodialysis SP G-tube placement on 01/14/2017 HTN Dementia anemia AV shunt Deep tissue injury and pressure ulcers in multiple places Diabetes P: cont pt on IV Zosyn d# 6 / , and IV Vanco d# 2 Monitor CBC Monitor BMP Monitor LFT Monitor C- xray Monitor Blood Cx coccido Ab, AFB x3 QuantiFeron Gold TB Airborne isolation 2DEcho Subjective Constitutional: Denies: anorexia, chills, drenching sweats, fatigue, fever, no symptoms, other Allergies: Coded Allergies: No Known Allergies (Verified , 03/31/11) Objective Vital Signs Last 24 Hour Vital Signs Date Time Temp Pulse Resp B/P Pulse Ox O2 Delivery O2 Flow Rate FiO2 01/20/17 09:00 60 137/66 01/20/17 08:09 98.4 60 20 137/66 96 Room Air 01/20/17 07:40 Room Air 01/20/17 07:33 60 18 Room Air 21 01/20/17 05:47 137/70 01/20/17 03:47 97.4 63 18 137/70 100 Room Air 01/19/17 23:32 97.0 65 18 135/66 98 Room Air 01/19/17 22:00 115/60 01/19/17 20:15 66 115/60 01/19/17 20:10 97.2 66 18 115/60 92 Room Air 01/19/17 19:30 69 18 Room Air 21 01/19/17 16:00 97.5 79 18 115/71 98 Room Air 01/19/17 13:43 115/65 01/19/17 12:11 95.6 70 18 115/65 98 Room Air Height (Feet): 6 Height (Inches): 0.00 Weight (Pounds): 200 HEENT: anicteric Respiratory/Chest: lungs clear Cardiovascular: normal rate Abdomen: no organomegaly Laboratory Tests Test 01/20/17 06:40 White Blood Count 19.8 K/UL (4.8-10.8) H Red Blood Count 3.11 M/UL (4.70-6.10) L Hemoglobin 9.4 G/DL (14.2-18.0) L Hematocrit 30.3 % (42.0-52.0) L Mean Corpuscular Volume 98 FL (80-99) Mean Corpuscular Hemoglobin 30.3 PG (27.0-31.0) Mean Corpuscular Hemoglobin Concent 31.0 G/DL (32.0-36.0) L Red Cell Distribution Width 15.1 % (11.6-14.8) H Platelet Count 310 K/UL (150-450) Mean Platelet Volume 7.1 FL (6.5-10.1) Neutrophils (%) (Auto) % (45.0-75.0) Lymphocytes (%) (Auto) % (20.0-45.0) Monocytes (%) (Auto) % (1.0-10.0) Eosinophils (%) (Auto) % (0.0-3.0) Basophils (%) (Auto) % (0.0-2.0) Differential Total Cells Counted 100 Neutrophils % (Manual) 76 % (45-75) H Lymphocytes % (Manual) 11 % (20-45) L Monocytes % (Manual) 9 % (1-10) Eosinophils % (Manual) 4 % (0-3) H Basophils % (Manual) 0 % (0-2) Band Neutrophils 0 % (0-8) Platelet Estimate Adequate Platelet Morphology Normal Hypochromasia 1+ Anisocytosis 1+ Sodium Level 147 mEQ/L (135-145) H Potassium Level 3.9 mEQ/L (3.4-4.9) Chloride Level 95 mEQ/L (98-107) L Carbon Dioxide Level 24 mEQ/L (20-30) Anion Gap 28 (5-15) H Blood Urea Nitrogen 81 mg/dL (7-23) H Creatinine 10.5 mg/dL (0.7-1.2) H Estimat Glomerular Filtration Rate 6.1 mL/min (>60) Glucose Level 116 mg/dL (74-106) H Uric Acid 9.1 mg/dL (3.0-7.5) H Calcium Level 10.2 mg/dL (8.6-10.2) Phosphorus Level 6.6 mg/dL (2.5-4.8) H Total Bilirubin 0.5 mg/dL (0.0-1.2) Aspartate Amino Transf (AST/SGOT) 32 U/L (5-40) Alanine Aminotransferase (ALT/SGPT) 8 U/L (3-41) Alkaline Phosphatase 110 U/L (40-129) Total Protein 8.1 g/dL (6.6-8.7) Albumin 3.3 g/dL (3.5-5.2) L Globulin 4.8 g/dL Albumin/Globulin Ratio 0.6 (1.0-2.7) L Current Medications Medications (Trade) Dose Ordered Sig/Tracy Route PRN Reason Start Time Stop Time Status Last Admin Dose Admin Acetaminophen (Tylenol) 650 mg Q4H PRN ORAL T>100.5 01/13/17 18:45 02/12/17 18:44 Amlodipine Besylate (Norvasc) 2.5 mg DAILY ORAL 01/19/17 09:00 02/18/17 08:59 01/19/17 09:22 Aspirin (ASA) 81 mg DAILY NG 01/14/17 09:00 02/13/17 08:59 01/19/17 09:21 Clonidine HCl (Catapres) 0.1 mg Q4H PRN ORAL SBP>160 01/13/17 18:45 02/12/17 18:44 Heparin Sodium (Porcine) (Heparin 5000 units/ml) 5,000 units EVERY 12 HOURS SUBQ 01/13/17 21:00 02/12/17 20:59 01/19/17 20:15 Hydralazine HCl (Apresoline) 25 mg EVERY 8 HOURS ORAL 01/18/17 14:00 02/17/17 13:59 01/19/17 13:43 Labetalol HCl (Normodyne) 200 mg EVERY 12 HOURS ORAL 01/13/17 21:00 02/12/17 20:59 01/19/17 09:22 Lactulose (Cephulac) 30 gm BID ORAL 01/17/17 10:30 02/16/17 10:29 01/19/17 09:21 Levetiracetam (Keppra) 500 mg Q12HR NG 01/13/17 21:00 02/12/17 20:59 01/19/17 20:14 Morphine Sulfate (Morphine Sulfate) 1 mg Q4H PRN IVP PAIN 4-10 01/13/17 18:45 01/20/17 18:44 Ondansetron HCl (Zofran) 4 mg Q6H PRN IVP Nausea & Vomiting 01/13/17 20:45 02/12/17 20:44 Pantoprazole 40 mg 40 mg DAILY IVP 01/15/17 21:00 02/14/17 20:59 01/19/17 09:22 Piperacillin Sod/ Tazobactam Sod/ Sodium Chloride (Zosyn/Sodium Chloride) 55 ml @ 110 mls/hr Q8HR IV 01/16/17 11:30 01/29/17 23:59 01/20/17 05:47 Polyethylene Glycol (Miralax) 17 gm HSPRN PRN ORAL Constipation 01/13/17 21:00 02/12/17 20:59 Sevelamer Carbonate (Renvela) 2,400 mg THREE TIMES A DAY ORAL 01/14/17 18:00 02/13/17 17:59 01/19/17 19:05 Sodium Chloride (Sodium Chloride Dey-Reigs 3%) 4 ml ONCE ONCE INH 01/20/17 10:30 01/20/17 10:31 Trazodone HCl (Desyrel) 50 mg BEDTIME ORAL 01/13/17 21:00 02/12/17 20:59 01/19/17 20:14 Valproic Acid (Depakene) 250 mg Q12HR GT 01/13/17 21:00 02/12/17 20:59 01/19/17 20:14 Vancomycin HCl (Vanco rx to dose) 1 ea DAILY PRN MISC Per rx protocol 01/19/17 16:00 02/18/17 15:59 Vitamin A/Vitamin D (A & D Oint) 1 applic EVERY 12 HOURS TOPIC 01/13/17 21:00 02/12/17 20:59 01/20/17 09:48 Zolpidem Tartrate (Ambien) 5 mg HSPRN PRN ORAL Insomnia 01/13/17 21:00 02/12/17 20:59 HODAN KEITH M.D. Jan 20, 2017 10:15
[2017-01-20] MEDS ORDERED: Sodium Chloride 3% 4ml Nebul Soln INH ONE ×2 (10:30→11:00)
--- NOTE | 2017-01-20 10:46 | GI Progress Note ---
Assessment/Plan Problems: (1) Encounter for PEG (percutaneous endoscopic gastrostomy) ICD Codes: Z43.1 - Encounter for attention to gastrostomy SNOMED: 521690606, 621098525 (2) Diabetes ICD Codes: E11.9 - Type 2 diabetes mellitus without complications SNOMED: 97512685 Status: stable Status Narrative Discussed with Dr. Meza. Assessment/Plan Assessment - Anemia - rising WBC - presumed due to cavitary lung masses seen on CT - CRF - dysphagia - OB stool negative - elevated CEA 9.3 - elevated CA19-9 63.65 Recommendations - defer GI procedures at this time - follow WBC - monitor H&H, transfuse prn - cavitary lung masses per pulmonary - fu C diff - abx - GTFs per dietary - airborne isolation r/o TB - fu labs Subjective Subjective limited Objective Last 24 Hour Vital Signs Date Time Temp Pulse Resp B/P Pulse Ox O2 Delivery O2 Flow Rate FiO2 01/20/17 09:00 60 137/66 01/20/17 08:09 98.4 60 20 137/66 96 Room Air 01/20/17 07:40 Room Air 01/20/17 07:33 60 18 Room Air 21 01/20/17 05:47 137/70 01/20/17 03:47 97.4 63 18 137/70 100 Room Air 01/19/17 23:32 97.0 65 18 135/66 98 Room Air 01/19/17 22:00 115/60 01/19/17 20:15 66 115/60 01/19/17 20:10 97.2 66 18 115/60 92 Room Air 01/19/17 19:30 69 18 Room Air 21 01/19/17 16:00 97.5 79 18 115/71 98 Room Air 01/19/17 13:43 115/65 01/19/17 12:11 95.6 70 18 115/65 98 Room Air Intake and Output 01/19/17 01/20/17 19:00 07:00 Intake Total 40 ml 955.0 ml Balance 40 ml 955.0 ml Free Water 40 ml IV Total 435.0 ml Tube Feeding 40 ml 480 ml # Bowel Movements 2 Laboratory Tests Test 01/20/17 06:40 White Blood Count 19.8 K/UL (4.8-10.8) H Red Blood Count 3.11 M/UL (4.70-6.10) L Hemoglobin 9.4 G/DL (14.2-18.0) L Hematocrit 30.3 % (42.0-52.0) L Mean Corpuscular Volume 98 FL (80-99) Mean Corpuscular Hemoglobin 30.3 PG (27.0-31.0) Mean Corpuscular Hemoglobin Concent 31.0 G/DL (32.0-36.0) L Red Cell Distribution Width 15.1 % (11.6-14.8) H Platelet Count 310 K/UL (150-450) Mean Platelet Volume 7.1 FL (6.5-10.1) Neutrophils (%) (Auto) % (45.0-75.0) Lymphocytes (%) (Auto) % (20.0-45.0) Monocytes (%) (Auto) % (1.0-10.0) Eosinophils (%) (Auto) % (0.0-3.0) Basophils (%) (Auto) % (0.0-2.0) Differential Total Cells Counted 100 Neutrophils % (Manual) 76 % (45-75) H Lymphocytes % (Manual) 11 % (20-45) L Monocytes % (Manual) 9 % (1-10) Eosinophils % (Manual) 4 % (0-3) H Basophils % (Manual) 0 % (0-2) Band Neutrophils 0 % (0-8) Platelet Estimate Adequate Platelet Morphology Normal Hypochromasia 1+ Anisocytosis 1+ Sodium Level 147 mEQ/L (135-145) H Potassium Level 3.9 mEQ/L (3.4-4.9) Chloride Level 95 mEQ/L (98-107) L Carbon Dioxide Level 24 mEQ/L (20-30) Anion Gap 28 (5-15) H Blood Urea Nitrogen 81 mg/dL (7-23) H Creatinine 10.5 mg/dL (0.7-1.2) H Estimat Glomerular Filtration Rate 6.1 mL/min (>60) Glucose Level 116 mg/dL (74-106) H Uric Acid 9.1 mg/dL (3.0-7.5) H Calcium Level 10.2 mg/dL (8.6-10.2) Phosphorus Level 6.6 mg/dL (2.5-4.8) H Total Bilirubin 0.5 mg/dL (0.0-1.2) Aspartate Amino Transf (AST/SGOT) 32 U/L (5-40) Alanine Aminotransferase (ALT/SGPT) 8 U/L (3-41) Alkaline Phosphatase 110 U/L (40-129) Total Protein 8.1 g/dL (6.6-8.7) Albumin 3.3 g/dL (3.5-5.2) L Globulin 4.8 g/dL Albumin/Globulin Ratio 0.6 (1.0-2.7) L Height (Feet): 6 Height (Inches): 0.00 Weight (Pounds): 200 General Appearance: alert Cardiovascular: normal rate Respiratory/Chest: no respiratory distress Abdominal Exam: normal bowel sounds, non tender, soft Objective Endoscopy Procedure Note Indication for Procedure: dysphagia Procedures Performed: PEG Operative Findings/Diagnosis: NANCY Gonzalez - Jan 14, 2017 13:39 Cally Candelaria N.P. Jan 20, 2017 10:46
[2017-01-20 12:14] VITALS: BP 132/60
[2017-01-20] MEDS ORDERED: NS 275ml ONE (13:28)
[2017-01-20] MEDS: Morphine Sulfate 2mg/ml Inj IVP PRN ×2 (13:54→18:44)
--- NOTE | 2017-01-20 14:57 | General Progress Note ---
Assessment/Plan Status: stable Assessment/Plan status: ESRD next HD 08/15, in process HyperKalemia- resolved after HD HTN DM Dementia CVA Sz disorder Plan; HD done 12/20 this morning K Suppl.. Via GT Phos binders per consultants Subjective ROS Limited/Unobtainable: No Allergies: Coded Allergies: No Known Allergies (Verified , 03/31/11) Objective Last 24 Hour Vital Signs Date Time Temp Pulse Resp B/P Pulse Ox O2 Delivery O2 Flow Rate FiO2 01/20/17 14:05 132/60 01/20/17 12:14 98.6 65 20 132/60 96 Room Air 01/20/17 11:15 Room Air 01/20/17 09:00 60 137/66 01/20/17 08:09 98.4 60 20 137/66 96 Room Air 01/20/17 07:40 Room Air 01/20/17 07:33 60 18 Room Air 21 01/20/17 05:47 137/70 01/20/17 03:47 97.4 63 18 137/70 100 Room Air 01/19/17 23:32 97.0 65 18 135/66 98 Room Air 01/19/17 22:00 115/60 01/19/17 20:15 66 115/60 01/19/17 20:10 97.2 66 18 115/60 92 Room Air 01/19/17 19:30 69 18 Room Air 21 01/19/17 16:00 97.5 79 18 115/71 98 Room Air Intake and Output 01/19/17 01/20/17 19:00 07:00 Intake Total 40 ml 955.0 ml Balance 40 ml 955.0 ml Free Water 40 ml IV Total 435.0 ml Tube Feeding 40 ml 480 ml # Bowel Movements 2 Laboratory Tests 01/20/17 06:40: White Blood Count 19.8H, Red Blood Count 3.11L, Hemoglobin 9.4L, Hematocrit 30.3L, Mean Corpuscular Volume 98, Mean Corpuscular Hemoglobin 30.3, Mean Corpuscular Hemoglobin Concent 31.0L, Red Cell Distribution Width 15.1H, Platelet Count 310, Mean Platelet Volume 7.1, Neutrophils (%) (Auto) , Lymphocytes (%) (Auto) , Monocytes (%) (Auto) , Eosinophils (%) (Auto) , Basophils (%) (Auto) , Differential Total Cells Counted 100, Neutrophils % ( Manual) 76H, Lymphocytes % (Manual) 11L, Monocytes % (Manual) 9, Eosinophils % ( Manual) 4H, Basophils % (Manual) 0, Band Neutrophils 0, Platelet Estimate Adequate, Platelet Morphology Normal, Hypochromasia 1+, Anisocytosis 1+, Sodium Level 147H, Potassium Level 3.9, Chloride Level 95L, Carbon Dioxide Level 24, Anion Gap 28H, Blood Urea Nitrogen 81H, Creatinine 10.5H, Estimat Glomerular Filtration Rate 6.1, Glucose Level 116H, Uric Acid 9.1H, Calcium Level 10.2, Phosphorus Level 6.6H, Total Bilirubin 0.5, Aspartate Amino Transf (AST/SGOT) 32 , Alanine Aminotransferase (ALT/SGPT) 8, Alkaline Phosphatase 110, Total Protein 8.1, Albumin 3.3L, Globulin 4.8, Albumin/Globulin Ratio 0.6L 01/20/17 13:26: M. tuberculosis Complex DNA (PCR) [Pending] Height (Feet): 6 Height (Inches): 0.00 Weight (Pounds): 200 General Appearance: no apparent distress Objective other PE not changed SHILOH CABRAL Jan 20, 2017 14:57
[2017-01-20 15:55] VITALS: BP 121/59
[2017-01-20] MEDS ORDERED: Vancomycin 1gm/D5W 275ml IVPB ONE ×2 (18:00)
[2017-01-20] MEDS ORDERED: Morphine Sulfate 2mg/ml Inj IVP PRN (19:00)
--- NOTE | 2017-01-20 19:09 | Pulmonology Progress Note ---
Assessment/Plan Problems: (1) Pneumonia (2) Cavitary lung disease (3) Acute encephalopathy (4) ESRF (end stage renal failure) (5) HTN (hypertension) (6) Hyperkalemia (7) Diabetes Assessment/Plan isolation because of multiple pulmonary lesions sputum induction serology for fungal infectoins LDH, tumro markers, f/u wbc, slightly lower continue antibiotics HD by nephrology, hd prn no sputum yet available Subjective ROS Limited/Unobtainable: Yes Interval Events: looks comfrotable Allergies: Coded Allergies: No Known Allergies (Verified , 03/31/11) Objective Last 24 Hour Vital Signs Date Time Temp Pulse Resp B/P Pulse Ox O2 Delivery O2 Flow Rate FiO2 01/20/17 15:55 98.0 73 20 121/59 98 Room Air 01/20/17 14:05 132/60 01/20/17 12:14 98.6 65 20 132/60 96 Room Air 01/20/17 11:15 Room Air 01/20/17 09:00 60 137/66 01/20/17 08:09 98.4 60 20 137/66 96 Room Air 01/20/17 07:40 Room Air 01/20/17 07:33 60 18 Room Air 21 01/20/17 05:47 137/70 01/20/17 03:47 97.4 63 18 137/70 100 Room Air 01/19/17 23:32 97.0 65 18 135/66 98 Room Air 01/19/17 22:00 115/60 01/19/17 20:15 66 115/60 01/19/17 20:10 97.2 66 18 115/60 92 Room Air 01/19/17 19:30 69 18 Room Air 21 Intake and Output 01/19/17 01/20/17 19:00 07:00 Intake Total 40 ml 955.0 ml Balance 40 ml 955.0 ml Free Water 40 ml IV Total 435.0 ml Tube Feeding 40 ml 480 ml # Bowel Movements 2 Objective General Appearance: WD/WN HEENT: normocephalic Respiratory/Chest: chest wall non-tender, lungs clear Cardiovascular: normal peripheral pulses, normal rate Abdomen: normal bowel sounds Genitourinary: normal external genitalia Laboratory Tests 01/20/17 06:40: White Blood Count 19.8H, Red Blood Count 3.11L, Hemoglobin 9.4L, Hematocrit 30.3L, Mean Corpuscular Volume 98, Mean Corpuscular Hemoglobin 30.3, Mean Corpuscular Hemoglobin Concent 31.0L, Red Cell Distribution Width 15.1H, Platelet Count 310, Mean Platelet Volume 7.1, Neutrophils (%) (Auto) , Lymphocytes (%) (Auto) , Monocytes (%) (Auto) , Eosinophils (%) (Auto) , Basophils (%) (Auto) , Differential Total Cells Counted 100, Neutrophils % ( Manual) 76H, Lymphocytes % (Manual) 11L, Monocytes % (Manual) 9, Eosinophils % ( Manual) 4H, Basophils % (Manual) 0, Band Neutrophils 0, Platelet Estimate Adequate, Platelet Morphology Normal, Hypochromasia 1+, Anisocytosis 1+, Sodium Level 147H, Potassium Level 3.9, Chloride Level 95L, Carbon Dioxide Level 24, Anion Gap 28H, Blood Urea Nitrogen 81H, Creatinine 10.5H, Estimat Glomerular Filtration Rate 6.1, Glucose Level 116H, Uric Acid 9.1H, Calcium Level 10.2, Phosphorus Level 6.6H, Total Bilirubin 0.5, Aspartate Amino Transf (AST/SGOT) 32 , Alanine Aminotransferase (ALT/SGPT) 8, Alkaline Phosphatase 110, Total Protein 8.1, Albumin 3.3L, Globulin 4.8, Albumin/Globulin Ratio 0.6L 01/20/17 13:26: M. tuberculosis Complex DNA (PCR) [Pending] Current Medications Medications (Trade) Dose Ordered Sig/Tracy Route PRN Reason Start Time Stop Time Status Last Admin Dose Admin Acetaminophen (Tylenol) 650 mg Q4H PRN ORAL T>100.5 01/13/17 18:45 02/12/17 18:44 Amlodipine Besylate (Norvasc) 2.5 mg DAILY ORAL 01/19/17 09:00 02/18/17 08:59 01/19/17 09:22 Aspirin (ASA) 81 mg DAILY NG 01/14/17 09:00 02/13/17 08:59 01/19/17 09:21 Clonidine HCl (Catapres) 0.1 mg Q4H PRN ORAL SBP>160 01/13/17 18:45 02/12/17 18:44 Heparin Sodium (Porcine) (Heparin 5000 units/ml) 5,000 units EVERY 12 HOURS SUBQ 01/13/17 21:00 5/13/17 20:59 01/19/17 20:15 Hydralazine HCl (Apresoline) 25 mg EVERY 8 HOURS ORAL 01/18/17 14:00 02/17/17 13:59 01/20/17 14:05 Labetalol HCl (Normodyne) 200 mg EVERY 12 HOURS ORAL 01/13/17 21:00 02/12/17 20:59 01/19/17 09:22 Lactulose (Cephulac) 30 gm BID ORAL 01/17/17 10:30 02/16/17 10:29 01/20/17 18:28 Levetiracetam (Keppra) 500 mg Q12HR NG 01/13/17 21:00 02/12/17 20:59 01/19/17 20:14 Morphine Sulfate (Morphine Sulfate) 1 mg Q4H PRN IVP Pain (Pain Scale 4-10) 01/20/17 19:00 01/27/17 18:59 Ondansetron HCl (Zofran) 4 mg Q6H PRN IVP Nausea & Vomiting 01/13/17 20:45 02/12/17 20:44 Pantoprazole 40 mg 40 mg DAILY GT 01/21/17 09:00 02/20/17 08:59 Piperacillin Sod/ Tazobactam Sod/ Sodium Chloride (Zosyn/Sodium Chloride) 55 ml @ 110 mls/hr Q8HR IV 01/16/17 11:30 01/29/17 23:59 01/20/17 13:55 Polyethylene Glycol (Miralax) 17 gm HSPRN PRN ORAL Constipation 01/13/17 21:00 02/12/17 20:59 Sevelamer Carbonate 2400 mg 2,400 mg THREE TIMES A DAY ORAL 01/14/17 18:00 02/13/17 17:59 01/20/17 18:27 Trazodone HCl (Desyrel) 50 mg BEDTIME ORAL 01/13/17 21:00 02/12/17 20:59 01/19/17 20:14 Valproic Acid (Depakene) 250 mg Q12HR GT 01/13/17 21:00 02/12/17 20:59 01/19/17 20:14 Vancomycin HCl (Vanco rx to dose) 1 ea DAILY PRN MISC Per rx protocol 01/19/17 16:00 02/18/17 15:59 Vancomycin HCl/ Dextrose (Vancomycin/D5W) 275 ml @ 183.708 mls/hr ONCE ONCE IVPB 01/20/17 18:00 01/20/17 19:29 01/20/17 18:27 Vitamin A/Vitamin D (A & D Oint) 1 applic EVERY 12 HOURS TOPIC 01/13/17 21:00 02/12/17 20:59 01/20/17 09:48 Zolpidem Tartrate (Ambien) 5 mg HSPRN PRN ORAL Insomnia 01/13/17 21:00 02/12/17 20:59 MITUL NAVARRO Jan 20, 2017 19:09
[2017-01-20 20:00] VITALS: BP 106/58
[2017-01-20] MEDS: TraZODone 50mg tab ORAL SCH (21:01)
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
[2017-01-21] VITALS (7 sets, daily range): BP systolic 95–131; BP diastolic 53–67
[2017-01-21] MEDS: HydrALAZINE 25mg tab ORAL SCH ×3 (05:58→21:25)
[2017-01-21] MEDS: Piperacillin/Tazobactam 2.25 GM in NS 55 ML IV SCH ×2 (06:13→14:18)
[2017-01-21 07:23] LABS: MEAN CORPUSCULAR HGB CONC 31.3 G/DL (32.0-36.0); MEAN CORPUSCULAR VOLUME 99 FL (80-99); MEAN PLATELET VOLUME 7.5 FL (6.5-10.1); PLATELET COUNT 368 K/UL (150-450); RED BLOOD COUNT 2.86 M/UL (4.70-6.10); RED CELL DISTRIBUTION WIDTH 16.1 % (11.6-14.8)
[2017-01-21 08:29] LABS: WHITE BLOOD COUNT 29.8 K/UL (4.8-10.8)
[2017-01-21 08:36] LABS: CALCIUM 10.4 mg/dL (8.6-10.2); CREATININE 9.6 mg/dL (0.7-1.2); GLOMERULAR FILTRATION RATE 6.7 mL/min (>60); POTASSIUM 3.5 mEQ/L (3.4-4.9)
[2017-01-21] MEDS: Labetalol 200mg tab ORAL SCH ×2 (08:43→21:25)
[2017-01-21 08:46] LABS: ANISOCYTOSIS 1+; BAND NEUTROPHILS % (MANUAL) 0 % (0-8); BASOPHILS % (MANUAL) 0 % (0-2); EOSINOPHILS % (MANUAL) 1 % (0-3); HYPOCHROMASIA 2+; LYMPHOCYTES % (MANUAL) 13 % (20-45); NEUTROPHILS % (MANUAL) 81 % (45-75); PLATELET ESTIMATE ADEQUATE; PLATELET MORPHOLOGY NORMAL; TOTAL CELLS COUNTED 100
[2017-01-21] MEDS: Heparin 5000 units/ml inj SUBQ SCH ×2 (09:00→21:50)
[2017-01-21] MEDS: Valproic Acid 250mg/5ml Liquid GT SCH ×2 (09:03→21:20)
[2017-01-21] MEDS: Aspirin Baby 81mg NG SCH (09:04)
[2017-01-21] MEDS: Renvela 800mg Pkt ORAL SCH ×2 (09:04→14:15)
[2017-01-21] MEDS: Lactulose 20gm/30ml UDC ORAL SCH ×2 (09:04→19:21)
[2017-01-21] MEDS: levETIRAcetam 500mg/5ml Liquid NG SCH ×2 (09:04→21:20)
[2017-01-21] MEDS: Pantoprazole 40mg pkt GT SCH (09:08)
--- NOTE | 2017-01-21 10:15 | GI Progress Note ---
Assessment/Plan Problems: (1) Encounter for PEG (percutaneous endoscopic gastrostomy) ICD Codes: Z43.1 - Encounter for attention to gastrostomy SNOMED: 805284537, [id number] (2) Diabetes ICD Codes: E11.9 - Type 2 diabetes mellitus without complications SNOMED: 85141111 Status: unchanged Status Narrative Discussed with Dr. Meza. Assessment/Plan Assessment - Anemia - rising WBC - presumed due to cavitary lung masses seen on CT - CRF - dysphagia - OB stool negative - elevated CEA 9.3 - elevated CA19-9 63.65 Recommendations - defer GI procedures at this time - follow WBC - monitor H&H, transfuse prn - cavitary lung masses per pulmonary - fu C diff - abx - GTFs per dietary - airborne isolation r/o TB - fu labs Subjective Subjective limited Objective Last 24 Hour Vital Signs Date Time Temp Pulse Resp B/P Pulse Ox O2 Delivery O2 Flow Rate FiO2 01/21/17 08:43 80 95/56 01/21/17 08:43 80 95/56 01/21/17 08:13 98.4 80 20 95/56 98 Room Air 01/21/17 05:58 100/56 01/21/17 04:00 98.2 70 20 109/63 97 01/21/17 00:00 98.1 89 20 100/53 99 Room Air 01/20/17 21:33 106/58 01/20/17 21:02 82 106/58 01/20/17 20:00 98.4 85 20 106/58 94 Room Air 01/20/17 19:40 66 18 Room Air 01/20/17 15:55 98.0 73 20 121/59 98 Room Air 01/20/17 14:05 132/60 01/20/17 12:14 98.6 65 20 132/60 96 Room Air 01/20/17 11:15 Room Air Intake and Output 01/20/17 01/21/17 19:00 07:00 Intake Total 638.708 ml Output Total 2625 ml Balance -1986.292 ml Free Water 120 ml IV Total 238.708 ml Tube Feeding 280 ml Output Urine Total 200 ml Hemodialysis UF 2425 ml # Bowel Movements 1 Laboratory Tests Test 01/20/17 13:26 01/21/17 06:00 M. tuberculosis Complex DNA (PCR) Pending White Blood Count 29.8 K/UL (4.8-10.8) #*H Red Blood Count 2.86 M/UL (4.70-6.10) L Hemoglobin 8.9 G/DL (14.2-18.0) L Hematocrit 28.3 % (42.0-52.0) L Mean Corpuscular Volume 99 FL (80-99) Mean Corpuscular Hemoglobin 31.0 PG (27.0-31.0) Mean Corpuscular Hemoglobin Concent 31.3 G/DL (32.0-36.0) L Red Cell Distribution Width 16.1 % (11.6-14.8) H Platelet Count 368 K/UL (150-450) Mean Platelet Volume 7.5 FL (6.5-10.1) Neutrophils (%) (Auto) % (45.0-75.0) Lymphocytes (%) (Auto) % (20.0-45.0) Monocytes (%) (Auto) % (1.0-10.0) Eosinophils (%) (Auto) % (0.0-3.0) Basophils (%) (Auto) % (0.0-2.0) Differential Total Cells Counted 100 Neutrophils % (Manual) 81 % (45-75) H Lymphocytes % (Manual) 13 % (20-45) L Monocytes % (Manual) 5 % (1-10) Eosinophils % (Manual) 1 % (0-3) Basophils % (Manual) 0 % (0-2) Band Neutrophils 0 % (0-8) Platelet Estimate Adequate Platelet Morphology Normal Hypochromasia 2+ Anisocytosis 1+ Sodium Level 147 mEQ/L (135-145) H Potassium Level 3.5 mEQ/L (3.4-4.9) Chloride Level 93 mEQ/L (98-107) L Carbon Dioxide Level 25 mEQ/L (20-30) Anion Gap 29 (5-15) H Blood Urea Nitrogen 76 mg/dL (7-23) H Creatinine 9.6 mg/dL (0.7-1.2) H Estimat Glomerular Filtration Rate 6.7 mL/min (>60) Glucose Level 134 mg/dL (74-106) H Calcium Level 10.4 mg/dL (8.6-10.2) H Height (Feet): 6 Height (Inches): 0.00 Weight (Pounds): 200 General Appearance: no apparent distress, alert Cardiovascular: normal rate Respiratory/Chest: normal breath sounds, no respiratory distress Abdominal Exam: soft, GT site - c/d/i Objective Endoscopy Procedure Note Indication for Procedure: dysphagia Procedures Performed: PEG Operative Findings/Diagnosis: GT placed NANCY MORELOS - Jan 14, 2017 13:39 Cally Candelaria N.P. Jan 21, 2017 10:15
--- NOTE | 2017-01-21 11:13 | General Progress Note ---
Assessment/Plan Status: stable Status Narrative leukocytosis persists Assessment/Plan status: ESRD HyperKalemia- resolved after HD HTN DM Dementia CVA Sz disorder Plan; HD done 01/20 this morning, next 01/22 K Suppl.. Via GT Phos binders per consultants Subjective ROS Limited/Unobtainable: No Constitutional: Reports: malaise Allergies: Coded Allergies: No Known Allergies (Verified , 03/31/11) Objective Last 24 Hour Vital Signs Date Time Temp Pulse Resp B/P Pulse Ox O2 Delivery O2 Flow Rate FiO2 01/21/17 08:43 80 95/56 01/21/17 08:43 80 95/56 01/21/17 08:13 98.4 80 20 95/56 98 Room Air 01/21/17 05:58 100/56 01/21/17 04:00 98.2 70 20 109/63 97 01/21/17 00:00 98.1 89 20 100/53 99 Room Air 01/20/17 21:33 106/58 01/20/17 21:02 82 106/58 01/20/17 20:00 98.4 85 20 106/58 94 Room Air 01/20/17 19:40 66 18 Room Air 01/20/17 15:55 98.0 73 20 121/59 98 Room Air 01/20/17 14:05 132/60 01/20/17 12:14 98.6 65 20 132/60 96 Room Air 01/20/17 11:15 Room Air Intake and Output 01/20/17 01/21/17 19:00 07:00 Intake Total 638.708 ml Output Total 2625 ml Balance -1986.292 ml Free Water 120 ml IV Total 238.708 ml Tube Feeding 280 ml Output Urine Total 200 ml Hemodialysis UF 2425 ml # Bowel Movements 1 Laboratory Tests 01/20/17 13:26: M. tuberculosis Complex DNA (PCR) [Pending] 01/21/17 06:00: White Blood Count 29.8#*H, Red Blood Count 2.86L, Hemoglobin 8.9L, Hematocrit 28.3L, Mean Corpuscular Volume 99, Mean Corpuscular Hemoglobin 31.0, Mean Corpuscular Hemoglobin Concent 31.3L, Red Cell Distribution Width 16.1H, Platelet Count 368, Mean Platelet Volume 7.5, Neutrophils (%) (Auto) , Lymphocytes (%) (Auto) , Monocytes (%) (Auto) , Eosinophils (%) (Auto) , Basophils (%) (Auto) , Differential Total Cells Counted 100, Neutrophils % ( Manual) 81H, Lymphocytes % (Manual) 13L, Monocytes % (Manual) 5, Eosinophils % ( Manual) 1, Basophils % (Manual) 0, Band Neutrophils 0, Platelet Estimate Adequate, Platelet Morphology Normal, Hypochromasia 2+, Anisocytosis 1+, Sodium Level 147H, Potassium Level 3.5, Chloride Level 93L, Carbon Dioxide Level 25, Anion Gap 29H, Blood Urea Nitrogen 76H, Creatinine 9.6H, Estimat Glomerular Filtration Rate 6.7, Glucose Level 134H, Calcium Level 10.4H Height (Feet): 6 Height (Inches): 0.00 Weight (Pounds): 200 General Appearance: no apparent distress Objective other PE not changed SHILOH CABRAL Jan 21, 2017 11:13
[2017-01-21] MEDS: Vitamin A&D Oint 2oz Tube TOPIC SCH ×2 (14:14→21:25)
[2017-01-21 16:17] LABS: BLASTOMYCES AB - ID Negative (Neg:<1:1)
--- NOTE | 2017-01-21 17:24 | Infectious Diseases Prog Note ---
Assessment/Plan Assessment/Plan This is a 66-year-old F Leukocytosis increased Pneumonia Scx: EColi UTI EColi Cavitary Lung lesions , multiple RO TB, Fungal Cancer CT: Multiple nodules/masses at the right lung base, many with cavitation.Associated reticular interstitial changes and bronchiectasis. Findings are worrisome Crypt Ag, : neg RO SBE 2DEcho : no Veg (but limited) Altered mental status ESRD on hemodialysis SP G-tube placement on 01/14/2017 HTN Dementia anemia AV shunt Deep tissue injury and pressure ulcers in multiple places Diabetes P: cont pt on IV IV Vanco d# 3 , change Zosyn d# 7 to Merrem d# 1 Monitor CBC Monitor BMP Monitor LFT Monitor C- xray Monitor Blood Cx coccido Ab, AFB x3 QuantiFeron Gold TB Airborne isolation may need FERMÍN when pt is out Isolation Subjective Allergies: Coded Allergies: No Known Allergies (Verified , 03/31/11) Subjective afebrile Objective Vital Signs Last 24 Hour Vital Signs Date Time Temp Pulse Resp B/P Pulse Ox O2 Delivery O2 Flow Rate FiO2 01/21/17 15:59 98.6 78 20 101/62 98 Room Air 01/21/17 14:45 127/61 01/21/17 14:36 82 127/61 01/21/17 11:42 98.0 85 20 99/58 98 Room Air 01/21/17 08:43 80 95/56 01/21/17 08:43 80 95/56 01/21/17 08:13 98.4 80 20 95/56 98 Room Air 01/21/17 06:43 74 18 Room Air 01/21/17 05:58 100/56 01/21/17 04:00 98.2 70 20 109/63 97 01/21/17 00:00 98.1 89 20 100/53 99 Room Air 01/20/17 21:33 106/58 01/20/17 21:02 82 106/58 01/20/17 20:00 98.4 85 20 106/58 94 Room Air 01/20/17 19:40 66 18 Room Air Height (Feet): 6 Height (Inches): 0.00 Weight (Pounds): 200 HEENT: atraumatic Respiratory/Chest: normal breath sounds Cardiovascular: normal rate Abdomen: soft, non tender Microbiology Date/Time Source Procedure Growth Status 01/20/17 15:55 Sputum AFB Specimen Processing Tissue - Final Resulted 01/20/17 15:55 Sputum Acid Fast Bacilli Smear - Final Resulted 01/20/17 15:55 Sputum Acid Fast Bacilli Culture Pending Resulted Laboratory Tests Test 01/21/17 06:00 White Blood Count 29.8 K/UL (4.8-10.8) #*H Red Blood Count 2.86 M/UL (4.70-6.10) L Hemoglobin 8.9 G/DL (14.2-18.0) L Hematocrit 28.3 % (42.0-52.0) L Mean Corpuscular Volume 99 FL (80-99) Mean Corpuscular Hemoglobin 31.0 PG (27.0-31.0) Mean Corpuscular Hemoglobin Concent 31.3 G/DL (32.0-36.0) L Red Cell Distribution Width 16.1 % (11.6-14.8) H Platelet Count 368 K/UL (150-450) Mean Platelet Volume 7.5 FL (6.5-10.1) Neutrophils (%) (Auto) % (45.0-75.0) Lymphocytes (%) (Auto) % (20.0-45.0) Monocytes (%) (Auto) % (1.0-10.0) Eosinophils (%) (Auto) % (0.0-3.0) Basophils (%) (Auto) % (0.0-2.0) Differential Total Cells Counted 100 Neutrophils % (Manual) 81 % (45-75) H Lymphocytes % (Manual) 13 % (20-45) L Monocytes % (Manual) 5 % (1-10) Eosinophils % (Manual) 1 % (0-3) Basophils % (Manual) 0 % (0-2) Band Neutrophils 0 % (0-8) Platelet Estimate Adequate Platelet Morphology Normal Hypochromasia 2+ Anisocytosis 1+ Sodium Level 147 mEQ/L (135-145) H Potassium Level 3.5 mEQ/L (3.4-4.9) Chloride Level 93 mEQ/L (98-107) L Carbon Dioxide Level 25 mEQ/L (20-30) Anion Gap 29 (5-15) H Blood Urea Nitrogen 76 mg/dL (7-23) H Creatinine 9.6 mg/dL (0.7-1.2) H Estimat Glomerular Filtration Rate 6.7 mL/min (>60) Glucose Level 134 mg/dL (74-106) H Calcium Level 10.4 mg/dL (8.6-10.2) H Current Medications Medications (Trade) Dose Ordered Sig/Tracy Route PRN Reason Start Time Stop Time Status Last Admin Dose Admin Acetaminophen (Tylenol) 650 mg Q4H PRN ORAL T>100.5 01/13/17 18:45 02/12/17 18:44 Amlodipine Besylate (Norvasc) 2.5 mg DAILY ORAL 01/19/17 09:00 02/18/17 08:59 01/19/17 09:22 Aspirin (ASA) 81 mg DAILY NG 01/14/17 09:00 02/13/17 08:59 01/21/17 09:04 Clonidine HCl (Catapres) 0.1 mg Q4H PRN ORAL SBP>160 01/13/17 18:45 02/12/17 18:44 Heparin Sodium (Porcine) (Heparin 5000 units/ml) 5,000 units EVERY 12 HOURS SUBQ 01/13/17 21:00 02/12/17 20:59 01/21/17 09:00 Hydralazine HCl (Apresoline) 25 mg EVERY 8 HOURS ORAL 01/18/17 14:00 02/17/17 13:59 01/21/17 14:45 Labetalol HCl (Normodyne) 200 mg EVERY 12 HOURS ORAL 01/13/17 21:00 02/12/17 20:59 01/20/17 21:02 Lactulose (Cephulac) 30 gm BID ORAL 01/17/17 10:30 02/16/17 10:29 01/21/17 09:04 Levetiracetam (Keppra) 500 mg Q12HR NG 01/13/17 21:00 02/12/17 20:59 01/21/17 09:04 Morphine Sulfate (Morphine Sulfate) 1 mg Q4H PRN IVP Pain (Pain Scale 4-10) 01/20/17 19:00 01/27/17 18:59 01/20/17 21:03 Ondansetron HCl (Zofran) 4 mg Q6H PRN IVP Nausea & Vomiting 01/13/17 20:45 02/12/17 20:44 Pantoprazole (Protonix) 40 mg DAILY GT 01/21/17 09:00 02/20/17 08:59 01/21/17 09:08 Piperacillin Sod/ Tazobactam Sod/ Sodium Chloride (Zosyn/Sodium Chloride) 55 ml @ 110 mls/hr Q8HR IV 01/16/17 11:30 01/29/17 23:59 01/21/17 14:18 Polyethylene Glycol (Miralax) 17 gm HSPRN PRN ORAL Constipation 01/13/17 21:00 02/12/17 20:59 Sevelamer Carbonate (Renvela) 2,400 mg THREE TIMES A DAY ORAL 01/21/17 18:00 02/13/17 17:59 Trazodone HCl (Desyrel) 50 mg BEDTIME ORAL 01/13/17 21:00 02/12/17 20:59 01/20/17 21:01 Valproic Acid (Depakene) 250 mg Q12HR GT 01/13/17 21:00 02/12/17 20:59 01/21/17 09:03 Vancomycin HCl (Vanco rx to dose) 1 ea DAILY PRN MISC Per rx protocol 01/19/17 16:00 02/18/17 15:59 Vitamin A/Vitamin D (A & D Oint) 1 applic EVERY 12 HOURS TOPIC 01/13/17 21:00 02/12/17 20:59 01/21/17 14:14 Zolpidem Tartrate 5 mg 5 mg HSPRN PRN ORAL Insomnia 01/13/17 21:00 02/12/17 20:59 HODAN KEITH M.D. Jan 21, 2017 17:24
[2017-01-21 19:09] LABS: HISTO AB MYCELIAL Negative (Neg:<1:2); HISTO AB YEAST Negative (Neg:<1:2); HISTOPLASMA MYCELIAL ID AB Negative (Negative)
[2017-01-21] MEDS: Renvela 2400 mg pkt ORAL SCH (19:23)
[2017-01-21] MEDS ORDERED: Meropenem 1 GM in NS 110 ML IVPB ONE (20:00)
--- NOTE | 2017-01-21 20:54 | Cardiology Report ---
APPROVED REPORT EXAM: Two-dimensional and M-mode echocardiogram with Doppler and color Doppler. INDICATION Vegitations M-Mode DIMENSIONS IVSd1.3 (0.7-1.1cm)Left Atrium (MM)2.9 (1.6-4.0cm) LVDd4.0 (3.5-5.6cm)Aortic Root3.3 (2.0-3.7cm) PWd1.0 (0.7-1.1cm)Aortic Cusp Exc.2.2 (1.5-2.0cm) LVDs3.2 (2.5-4.0cm) PWs1.2 cm Technically difficult study due to poor acoustic windows. Study quality precludes accurate assessment of regional wall motion. Normal left ventricular chamber size, systolic function and wall motion to extent visualized. Left ventricular ejection fraction estimated to be 55%. Mild left ventricular hypertrophy. Anterior Echo-free space, may be due to pericardial fat or effusion. All other cardiac chamber sizes are within normal limits. Mild focal aortic valve sclerosis with adequate cusp excursion. Mildly thickened mitral valve leaflets with normal excursion. Mild mitral annulus and aortic root calcification. Pulmonic valve not visualized. Normal tricuspid valve structure. IVC dilated at normal size without physiologic collapse. No discrete vegetations seen, however infective endocarditis may not be excluded by transthoracic 2-D echo. Consider FERMÍN if clinically indicated. A color flow and spectral Doppler study was performed and revealed: No aortic regurgitation. Trace mitral regurgitation. Mitral diastolic velocities suggest reduced left ventricular relaxation (Grade I). Trace tricuspid regurgitation. Tricuspid systolic velocities suggests peak right ventricular systolic pressure of 14 mmHg.
[2017-01-21] MEDS: TraZODone 50mg tab ORAL SCH (21:24)
--- NOTE | 2017-01-21 22:08 | Pulmonology Progress Note ---
Assessment/Plan Problems: (1) Pneumonia (2) Cavitary lung disease (3) Acute encephalopathy (4) ESRF (end stage renal failure) (5) HTN (hypertension) (6) Hyperkalemia (7) Diabetes Assessment/Plan isolation because of multiple pulmonary lesions sputum induction serology for fungal infectoins LDH, tumro markers, f/u wbc, slightly lower continue antibiotics HD by nephrology, hd prn no sputum yet available Subjective Allergies: Coded Allergies: No Known Allergies (Verified , 03/31/11) Objective Last 24 Hour Vital Signs Date Time Temp Pulse Resp B/P Pulse Ox O2 Delivery O2 Flow Rate FiO2 01/21/17 21:25 131/67 01/21/17 21:25 107 131/67 01/21/17 19:10 70 18 Room Air 01/21/17 15:59 98.6 78 20 101/62 98 Room Air 01/21/17 14:45 127/61 01/21/17 14:36 82 127/61 01/21/17 11:42 98.0 85 20 99/58 98 Room Air 01/21/17 08:43 80 95/56 01/21/17 08:43 80 95/56 01/21/17 08:13 98.4 80 20 95/56 98 Room Air 01/21/17 06:43 74 18 Room Air 01/21/17 05:58 100/56 01/21/17 04:00 98.2 70 20 109/63 97 01/21/17 00:00 98.1 89 20 100/53 99 Room Air Intake and Output 01/20/17 01/21/17 19:00 07:00 Intake Total 638.708 ml Output Total 2625 ml Balance -1986.292 ml Free Water 120 ml IV Total 238.708 ml Tube Feeding 280 ml Output Urine Total 200 ml Hemodialysis UF 2425 ml # Bowel Movements 1 Objective General Appearance: WD/WN HEENT: normocephalic Respiratory/Chest: chest wall non-tender, lungs clear Cardiovascular: normal peripheral pulses, normal rate Abdomen: normal bowel sounds Genitourinary: normal external genitalia Microbiology Date/Time Source Procedure Growth Status 01/20/17 15:55 Sputum AFB Specimen Processing Tissue - Final Resulted 01/20/17 15:55 Sputum Acid Fast Bacilli Smear - Final Resulted 01/20/17 15:55 Sputum Acid Fast Bacilli Culture Pending Resulted Laboratory Tests 01/21/17 06:00: White Blood Count 29.8#*H, Red Blood Count 2.86L, Hemoglobin 8.9L, Hematocrit 28.3L, Mean Corpuscular Volume 99, Mean Corpuscular Hemoglobin 31.0, Mean Corpuscular Hemoglobin Concent 31.3L, Red Cell Distribution Width 16.1H, Platelet Count 368, Mean Platelet Volume 7.5, Neutrophils (%) (Auto) , Lymphocytes (%) (Auto) , Monocytes (%) (Auto) , Eosinophils (%) (Auto) , Basophils (%) (Auto) , Differential Total Cells Counted 100, Neutrophils % ( Manual) 81H, Lymphocytes % (Manual) 13L, Monocytes % (Manual) 5, Eosinophils % ( Manual) 1, Basophils % (Manual) 0, Band Neutrophils 0, Platelet Estimate Adequate, Platelet Morphology Normal, Hypochromasia 2+, Anisocytosis 1+, Sodium Level 147H, Potassium Level 3.5, Chloride Level 93L, Carbon Dioxide Level 25, Anion Gap 29H, Blood Urea Nitrogen 76H, Creatinine 9.6H, Estimat Glomerular Filtration Rate 6.7, Glucose Level 134H, Calcium Level 10.4H Current Medications Medications (Trade) Dose Ordered Sig/Tracy Route PRN Reason Start Time Stop Time Status Last Admin Dose Admin Acetaminophen (Tylenol) 650 mg Q4H PRN ORAL T>100.5 01/13/17 18:45 02/12/17 18:44 Amlodipine Besylate (Norvasc) 2.5 mg DAILY ORAL 01/19/17 09:00 02/18/17 08:59 01/19/17 09:22 Aspirin (ASA) 81 mg DAILY NG 01/14/17 09:00 02/13/17 08:59 01/21/17 09:04 Clonidine HCl (Catapres) 0.1 mg Q4H PRN ORAL SBP>160 01/13/17 18:45 02/12/17 18:44 Heparin Sodium (Porcine) (Heparin 5000 units/ml) 5,000 units EVERY 12 HOURS SUBQ 01/13/17 21:00 02/12/17 20:59 01/21/17 21:50 Hydralazine HCl (Apresoline) 25 mg EVERY 8 HOURS ORAL 01/18/17 14:00 02/17/17 13:59 01/21/17 21:25 Labetalol HCl (Normodyne) 200 mg EVERY 12 HOURS ORAL 01/13/17 21:00 02/12/17 20:59 01/21/17 21:25 Lactulose (Cephulac) 30 gm BID ORAL 01/17/17 10:30 02/16/17 10:29 01/21/17 19:21 Levetiracetam (Keppra) 500 mg Q12HR NG 01/13/17 21:00 02/12/17 20:59 01/21/17 21:20 Meropenem/Sodium Chloride (Merrem/Sodium Chloride) 55 ml @ 110 mls/hr Q24H IVPB 01/22/17 18:00 01/27/17 17:59 Morphine Sulfate (Morphine Sulfate) 1 mg Q4H PRN IVP Pain (Pain Scale 4-10) 01/20/17 19:00 01/27/17 18:59 01/20/17 21:03 Ondansetron HCl (Zofran) 4 mg Q6H PRN IVP Nausea & Vomiting 01/13/17 20:45 02/12/17 20:44 Pantoprazole (Protonix) 40 mg DAILY GT 01/21/17 09:00 02/20/17 08:59 01/21/17 09:08 Polyethylene Glycol (Miralax) 17 gm HSPRN PRN ORAL Constipation 01/13/17 21:00 02/12/17 20:59 Sevelamer Carbonate 2400 mg 2,400 mg THREE TIMES A DAY ORAL 01/21/17 18:00 02/13/17 17:59 01/21/17 19:23 Trazodone HCl (Desyrel) 50 mg BEDTIME ORAL 01/13/17 21:00 02/12/17 20:59 01/21/17 21:24 Valproic Acid (Depakene) 250 mg Q12HR GT 01/13/17 21:00 02/12/17 20:59 01/21/17 21:20 Vancomycin HCl (Vanco rx to dose) 1 ea DAILY PRN MISC Per rx protocol 01/19/17 16:00 02/18/17 15:59 Vitamin A/Vitamin D (A & D Oint) 1 applic EVERY 12 HOURS TOPIC 01/13/17 21:00 02/12/17 20:59 01/21/17 21:25 Zolpidem Tartrate (Ambien) 5 mg HSPRN PRN ORAL Insomnia 01/13/17 21:00 02/12/17 20:59 MITUL NAVARRO Jan 21, 2017 22:08
[2017-01-22] VITALS (7 sets, daily range): BP systolic 96–124; BP diastolic 57–70
[2017-01-22] MEDS: HydrALAZINE 25mg tab ORAL SCH ×3 (05:23→21:27)
[2017-01-22 06:59] LABS: MEAN CORPUSCULAR HEMOGLOBIN 30.2 PG (27.0-31.0); MEAN CORPUSCULAR HGB CONC 30.7 G/DL (32.0-36.0); MEAN CORPUSCULAR VOLUME 98 FL (80-99); MEAN PLATELET VOLUME 7.1 FL (6.5-10.1); PLATELET COUNT 373 K/UL (150-450); RED BLOOD COUNT 2.87 M/UL (4.70-6.10); RED CELL DISTRIBUTION WIDTH 16.1 % (11.6-14.8)
[2017-01-22 07:17] LABS: WHITE BLOOD COUNT 22.6 K/UL (4.8-10.8)
[2017-01-22 07:21] LABS: CALCIUM 10.2 mg/dL (8.6-10.2); CREATININE 11.3 mg/dL (0.7-1.2); GLOMERULAR FILTRATION RATE 5.6 mL/min (>60); POTASSIUM 3.5 mEQ/L (3.4-4.9)
[2017-01-22] MEDS: Heparin 5000 units/ml inj SUBQ SCH ×2 (08:58→21:28)
[2017-01-22] MEDS: Labetalol 200mg tab ORAL SCH ×2 (09:00→20:52)
[2017-01-22] MEDS: Pantoprazole 40mg pkt GT SCH (09:00)
[2017-01-22] MEDS: Valproic Acid 250mg/5ml Liquid GT SCH ×2 (09:00→21:27)
[2017-01-22] MEDS: Vitamin A&D Oint 2oz Tube TOPIC SCH ×2 (09:00→21:27)
[2017-01-22] MEDS: Lactulose 20gm/30ml UDC ORAL SCH ×2 (09:00→17:05)
[2017-01-22] MEDS: Renvela 2400 mg pkt ORAL SCH ×3 (09:00→17:04)
[2017-01-22] MEDS: Aspirin Baby 81mg NG SCH (09:00)
[2017-01-22] MEDS: levETIRAcetam 500mg/5ml Liquid NG SCH ×2 (09:00→21:27)
--- NOTE | 2017-01-22 09:41 | General Progress Note ---
Assessment/Plan Status: stable Assessment/Plan status: ESRD HyperKalemia- resolved after HD HTN DM Dementia CVA Sz disorder Plan; HD in process- Phos binders per consultants Subjective ROS Limited/Unobtainable: No Constitutional: Reports: malaise Allergies: Coded Allergies: No Known Allergies (Verified , 03/31/11) Objective Last 24 Hour Vital Signs Date Time Temp Pulse Resp B/P Pulse Ox O2 Delivery O2 Flow Rate FiO2 01/22/17 08:56 73 18 Room Air 01/22/17 08:55 97.7 71 20 112/57 95 Room Air 01/22/17 04:00 97.7 101 22 124/70 94 Room Air 01/22/17 00:00 97.7 98 22 100/66 95 Room Air 01/21/17 21:25 131/67 01/21/17 21:25 107 131/67 01/21/17 20:00 97.7 107 22 131/67 94 Room Air 01/21/17 19:10 70 18 Room Air 01/21/17 15:59 98.6 78 20 101/62 98 Room Air 01/21/17 14:45 127/61 01/21/17 14:36 82 127/61 01/21/17 11:42 98.0 85 20 99/58 98 Room Air Intake and Output 01/21/17 01/22/17 18:59 06:59 Intake Total 440 ml 472 ml Output Total 200 ml 50 ml Balance 240 ml 422 ml IV Total 110 ml Tube Feeding 440 ml 362 ml Output Urine Total 200 ml 50 ml # Bowel Movements 1 2 Laboratory Tests 01/22/17 05:55: White Blood Count 22.6*H, Red Blood Count 2.87L, Hemoglobin 8.7L, Hematocrit 28.2L, Mean Corpuscular Volume 98, Mean Corpuscular Hemoglobin 30.2, Mean Corpuscular Hemoglobin Concent 30.7L, Red Cell Distribution Width 16.1H, Platelet Count 373, Mean Platelet Volume 7.1, Neutrophils (%) (Auto) , Lymphocytes (%) (Auto) , Monocytes (%) (Auto) , Eosinophils (%) (Auto) , Basophils (%) (Auto) , Neutrophils % (Manual) [Pending], Lymphocytes % (Manual) [Pending], Platelet Estimate [Pending], Platelet Morphology [Pending], Sodium Level 149H, Potassium Level 3.5, Chloride Level 94L, Carbon Dioxide Level 28, Anion Gap 27H, Blood Urea Nitrogen 84H, Creatinine 11.3H, Estimat Glomerular Filtration Rate 5.6, Glucose Level 145H, Calcium Level 10.2, Random Vancomycin Level 37.4 Height (Feet): 6 Height (Inches): 0.00 Weight (Pounds): 200 General Appearance: no apparent distress Objective other PE not changed SHILOH CABRAL Jan 22, 2017 09:41
[2017-01-22 09:42] LABS: ANISOCYTOSIS 1+; BAND NEUTROPHILS % (MANUAL) 0 % (0-8); BASOPHILS % (MANUAL) 0 % (0-2); EOSINOPHILS % (MANUAL) 2 % (0-3); HYPOCHROMASIA 1+; LYMPHOCYTES % (MANUAL) 13 % (20-45); NEUTROPHILS % (MANUAL) 76 % (45-75); PLATELET ESTIMATE ADEQUATE; PLATELET MORPHOLOGY NORMAL; TOTAL CELLS COUNTED 100
--- NOTE | 2017-01-22 10:03 | General Progress Note ---
Assessment/Plan Assessment/Plan Assessment - Anemia - rising WBC - presumed due to cavitary lung masses seen on CT - CRF - dysphagia - OB stool negative - elevated CEA 9.3 - elevated CA19-9 63.65 Recommendations - defer GI procedures at this time - follow WBC - monitor H&H, transfuse prn - cavitary lung masses per pulmonary - fu C diff - abx - GTFs per dietary - airborne isolation r/o TB - fu labs Subjective ROS Limited/Unobtainable: Yes Allergies: Coded Allergies: No Known Allergies (Verified , 03/31/11) Objective Last 24 Hour Vital Signs Date Time Temp Pulse Resp B/P Pulse Ox O2 Delivery O2 Flow Rate FiO2 01/22/17 08:56 73 18 Room Air 01/22/17 08:55 97.7 71 20 112/57 95 Room Air 01/22/17 07:50 Room Air 01/22/17 04:00 97.7 101 22 124/70 94 Room Air 01/22/17 00:00 97.7 98 22 100/66 95 Room Air 01/21/17 21:25 131/67 01/21/17 21:25 107 131/67 01/21/17 20:00 97.7 107 22 131/67 94 Room Air 01/21/17 19:10 70 18 Room Air 01/21/17 15:59 98.6 78 20 101/62 98 Room Air 01/21/17 14:45 127/61 01/21/17 14:36 82 127/61 01/21/17 11:42 98.0 85 20 99/58 98 Room Air Intake and Output 01/21/17 01/22/17 19:00 07:00 Intake Total 482 ml 470 ml Output Total 200 ml 50 ml Balance 282 ml 420 ml IV Total 110 ml Tube Feeding 482 ml 360 ml Output Urine Total 200 ml 50 ml # Bowel Movements 1 2 Laboratory Tests 01/22/17 05:55: White Blood Count 22.6*H, Red Blood Count 2.87L, Hemoglobin 8.7L, Hematocrit 28.2L, Mean Corpuscular Volume 98, Mean Corpuscular Hemoglobin 30.2, Mean Corpuscular Hemoglobin Concent 30.7L, Red Cell Distribution Width 16.1H, Platelet Count 373, Mean Platelet Volume 7.1, Neutrophils (%) (Auto) , Lymphocytes (%) (Auto) , Monocytes (%) (Auto) , Eosinophils (%) (Auto) , Basophils (%) (Auto) , Differential Total Cells Counted 100, Neutrophils % ( Manual) 76H, Lymphocytes % (Manual) 13L, Monocytes % (Manual) 9, Eosinophils % ( Manual) 2, Basophils % (Manual) 0, Band Neutrophils 0, Platelet Estimate Adequate, Platelet Morphology Normal, Hypochromasia 1+, Anisocytosis 1+, Sodium Level 149H, Potassium Level 3.5, Chloride Level 94L, Carbon Dioxide Level 28, Anion Gap 27H, Blood Urea Nitrogen 84H, Creatinine 11.3H, Estimat Glomerular Filtration Rate 5.6, Glucose Level 145H, Calcium Level 10.2, Random Vancomycin Level 37.4 Height (Feet): 6 Height (Inches): 0.00 Weight (Pounds): 200 General Appearance: no apparent distress EENT: normal ENT inspection Neck: supple Cardiovascular: normal rate Respiratory/Chest: decreased breath sounds Abdomen: normal bowel sounds, non tender, soft Extremities: non-tender SILVIA ARIAS Jan 22, 2017 10:03
[2017-01-22] MEDS ORDERED: Tubing IV Secondary IV ONE (14:50)
[2017-01-22] MEDS ORDERED: Meropenem 500mg/NS 55ml IVPB SCH ×2 (18:00)
--- NOTE | 2017-01-22 18:40 | Pulmonology Progress Note ---
Assessment/Plan Problems: (1) Pneumonia (2) Cavitary lung disease (3) Acute encephalopathy (4) ESRF (end stage renal failure) (5) HTN (hypertension) (6) Hyperkalemia (7) Diabetes Assessment/Plan wbc slightly lower, isolation because of multiple pulmonary lesions sputum induction serology for fungal infectoins LDH, tumro markers, continue antibiotics HD by nephrology, hd prn no sputum yet available ecoli in sputum and line Subjective ROS Limited/Unobtainable: No Constitutional: Reports: no symptoms Allergies: Coded Allergies: No Known Allergies (Verified , 03/31/11) Objective Last 24 Hour Vital Signs Date Time Temp Pulse Resp B/P Pulse Ox O2 Delivery O2 Flow Rate FiO2 01/22/17 16:00 97.0 65 17 99/65 94 Room Air 01/22/17 13:42 98/57 01/22/17 12:00 97.9 110 18 98/57 94 Room Air 01/22/17 11:30 Room Air 01/22/17 08:56 73 18 Room Air 01/22/17 08:55 97.7 71 20 112/57 95 Room Air 01/22/17 07:50 Room Air 01/22/17 04:00 97.7 101 22 124/70 94 Room Air 01/22/17 00:00 97.7 98 22 100/66 95 Room Air 01/21/17 21:25 131/67 01/21/17 21:25 107 131/67 01/21/17 20:00 97.7 107 22 131/67 94 Room Air 01/21/17 19:10 70 18 Room Air Intake and Output 01/21/17 01/22/17 19:00 07:00 Intake Total 482 ml 470 ml Output Total 200 ml 50 ml Balance 282 ml 420 ml IV Total 110 ml Tube Feeding 482 ml 360 ml Output Urine Total 200 ml 50 ml # Bowel Movements 1 2 Objective General Appearance: WD/WN HEENT: normocephalic Respiratory/Chest: chest wall non-tender, lungs clear Cardiovascular: normal peripheral pulses, normal rate Abdomen: normal bowel sounds Genitourinary: normal external genitalia Microbiology Date/Time Source Procedure Growth Status 01/21/17 08:30 Sputum AFB Specimen Processing Tissue - Final Resulted 01/21/17 08:30 Sputum Acid Fast Bacilli Smear - Final Resulted 01/21/17 08:30 Sputum Acid Fast Bacilli Culture Pending Resulted 01/20/17 15:55 Sputum AFB Specimen Processing Tissue - Final Resulted 01/20/17 15:55 Sputum Acid Fast Bacilli Smear - Final Resulted 01/20/17 15:55 Sputum Acid Fast Bacilli Culture Pending Resulted Laboratory Tests 01/22/17 05:55: White Blood Count 22.6*H, Red Blood Count 2.87L, Hemoglobin 8.7L, Hematocrit 28.2L, Mean Corpuscular Volume 98, Mean Corpuscular Hemoglobin 30.2, Mean Corpuscular Hemoglobin Concent 30.7L, Red Cell Distribution Width 16.1H, Platelet Count 373, Mean Platelet Volume 7.1, Neutrophils (%) (Auto) , Lymphocytes (%) (Auto) , Monocytes (%) (Auto) , Eosinophils (%) (Auto) , Basophils (%) (Auto) , Differential Total Cells Counted 100, Neutrophils % ( Manual) 76H, Lymphocytes % (Manual) 13L, Monocytes % (Manual) 9, Eosinophils % ( Manual) 2, Basophils % (Manual) 0, Band Neutrophils 0, Platelet Estimate Adequate, Platelet Morphology Normal, Hypochromasia 1+, Anisocytosis 1+, Sodium Level 149H, Potassium Level 3.5, Chloride Level 94L, Carbon Dioxide Level 28, Anion Gap 27H, Blood Urea Nitrogen 84H, Creatinine 11.3H, Estimat Glomerular Filtration Rate 5.6, Glucose Level 145H, Calcium Level 10.2, Random Vancomycin Level 37.4 Current Medications Medications (Trade) Dose Ordered Sig/Tracy Route PRN Reason Start Time Stop Time Status Last Admin Dose Admin Acetaminophen (Tylenol) 650 mg Q4H PRN ORAL T>100.5 01/13/17 18:45 02/12/17 18:44 Amlodipine Besylate (Norvasc) 2.5 mg DAILY ORAL 01/19/17 09:00 02/18/17 08:59 01/19/17 09:22 Aspirin (ASA) 81 mg DAILY NG 01/14/17 09:00 02/13/17 08:59 01/21/17 09:04 Clonidine HCl (Catapres) 0.1 mg Q4H PRN ORAL SBP>160 01/13/17 18:45 02/12/17 18:44 Heparin Sodium (Porcine) (Heparin 5000 units/ml) 5,000 units EVERY 12 HOURS SUBQ 01/13/17 21:00 02/12/17 20:59 01/22/17 08:58 Hydralazine HCl (Apresoline) 25 mg EVERY 8 HOURS ORAL 01/18/17 14:00 02/17/17 13:59 01/21/17 21:25 Labetalol HCl (Normodyne) 200 mg EVERY 12 HOURS ORAL 01/13/17 21:00 02/12/17 20:59 01/21/17 21:25 Lactulose (Cephulac) 30 gm BID ORAL 01/17/17 10:30 02/16/17 10:29 01/22/17 17:05 Levetiracetam (Keppra) 500 mg Q12HR NG 01/13/17 21:00 02/12/17 20:59 01/21/17 21:20 Meropenem/Sodium Chloride (Merrem/Sodium Chloride) 55 ml @ 110 mls/hr Q24H IVPB 01/22/17 18:00 01/27/17 17:59 01/22/17 17:46 Morphine Sulfate (Morphine Sulfate) 1 mg Q4H PRN IVP Pain (Pain Scale 4-10) 01/20/17 19:00 01/27/17 18:59 01/20/17 21:03 Ondansetron HCl (Zofran) 4 mg Q6H PRN IVP Nausea & Vomiting 01/13/17 20:45 02/12/17 20:44 Pantoprazole (Protonix) 40 mg DAILY GT 01/21/17 09:00 02/20/17 08:59 01/21/17 09:08 Polyethylene Glycol (Miralax) 17 gm HSPRN PRN ORAL Constipation 01/13/17 21:00 02/12/17 20:59 Sevelamer Carbonate 2400 mg 2,400 mg THREE TIMES A DAY ORAL 01/21/17 18:00 02/13/17 17:59 01/22/17 17:04 Trazodone HCl (Desyrel) 50 mg BEDTIME ORAL 01/13/17 21:00 02/12/17 20:59 01/21/17 21:24 Valproic Acid (Depakene) 250 mg Q12HR GT 01/13/17 21:00 02/12/17 20:59 01/21/17 21:20 Vancomycin HCl (Vanco rx to dose) 1 ea DAILY PRN MISC Per rx protocol 01/19/17 16:00 02/18/17 15:59 Vitamin A/Vitamin D (A & D Oint) 1 applic EVERY 12 HOURS TOPIC 01/13/17 21:00 02/12/17 20:59 01/21/17 21:25 Zolpidem Tartrate (Ambien) 5 mg HSPRN PRN ORAL Insomnia 01/13/17 21:00 02/12/17 20:59 MITUL NAVARRO Jan 22, 2017 18:40
[2017-01-22] MEDS: TraZODone 50mg tab ORAL SCH (21:28)
[2017-01-22] MEDS ORDERED: Etomidate 40mg/20ml Inj IV ONE (21:47)
[2017-01-22] MEDS ORDERED: EPINEPHrine 1mg/10ml carp IV ONE (21:47)
[2017-01-22] MEDS ORDERED: Calcium Chloride 10% 10ml carpuject IVP ONE (21:47)
[2017-01-22] MEDS ORDERED: Succinylcholine 20mg/ml 10ml vial ONE (21:47)
[2017-01-22] MEDS ORDERED: Sterile Water Irrig 1000ml IRRIG ONE (21:47)
[2017-01-22] MEDS ORDERED: Sodium Bicarbonate 8.4% 50ml Carp ONE (21:47)
--- NOTE | 2017-01-23 01:50 | Emergency Room Report ---
History of Present Illness General Chief Complaint: Altered Level of Consciousness Source: Family Member, Medical Record Present Illness HPI Is a 66-year-old male coming from care home admitted for sepsis and fluid overloaded. He is on dialysis. He received dialysis today. I responded to a CODE BLUE. Per nursing staff, he lost his vitals and was unresponsive. On my arrival CPR was in progress. He was not responsive to. There is no pulse. He was not intubated. Unable to get any history from the patient. At baseline he is alert and oriented x1. He opened his eyes to voice. Allergies: Coded Allergies: No Known Allergies (Verified , 03/31/11) Nursing Documentation-[facility] Past Medical History: No History, Except For Hx Hypertension: Yes Hx Diabetes: Yes Hx Dialysis: Yes - M,W,F Hx Neurological Problems: Yes - Dementia Hx Cerebrovascular Accident: Yes Hx Seizures: Yes Review of Systems All Other Systems: limited - Unable secondary to condition Physical Exam Vital Signs Date Time Temp Pulse Resp B/P Pulse Ox O2 Delivery O2 Flow Rate FiO2 01/11/17 10:19 94 24 189/79 98 Room Air 01/11/17 11:00 97.7 01/11/17 12:51 21 01/12/17 19:40 3.0 patient has no pulse without CPR. No respiration without bag valve-mask. No blood pressure. General Appearance: severe distress, other - Unresponsive Head: normocephalic, atraumatic Eyes: bilateral eye other - Pupils unresponsive ENT: other - Oropharynx with copious secretion and also liquid That looked like tube feeding Neck: supple Respiratory: other - Diffuse rhonchi Cardiovascular #1: other - No heart rate Gastrointestinal: soft Musculoskeletal: other - No edema Neurologic: other - Unresponsive Skin: normal color Procedures Critical Care Time Critical Care Time Critical care is mandated in this patient who presented with cardiac arrest. Patient require my urgent intervention to attenuate the risks of metabolic collapse which may lead to cardiovascular collapse and . Critical care time is 35 minutes excluding any reportable procedure. Critical care time included evaluation, multiple reevaluation, looking at old charts, interpreting laboratory and diagnostic data, discussing case with patient and family and consultants, and charting. Intubation Intubation : Consent: Emergent Intubation Method: orotracheal Tube Size (cm): 7.5 Medications: Etomidate, Succinylcholine Breath Sounds after Intubation: equal Intubation Complications: no complications Post Intubation Xray: No Attempts: One Patient Tolerated: Well Complications: None Progress Patient has a lot of secretions in the oropharynx. Also aspirate. This was suctioned. Was able to intubate the patient without any difficulty. Endotracheal tube secured at 23 cm the lip. Breath sounds bilaterally. Nothing in the epigastric area. Good CO2 color change. Her chest x-ray done because patient prior to chest x-ray. Medical Decision Making Diagnostic Impression: Primary Impression: Encephalopathy Additional Impressions: UTI (urinary tract infection) Uremia Dialysis patient Pneumonia Hyperkalemia Cardiac arrest ER Course Patient had cardiac arrest and CODE BLUE. Patient received 3 rounds of epinephrine. I also gave him bicarbonate and calcium chloride. Code was unsuccessful. There was never spontaneous return of pulse. During CPR, there was a pulse with Doppler. Without CPR there was no pulse. I called the code and pronounced the patient at 2148. Dr. Werner notified. Last Vital Signs Date Time Temp Pulse Resp B/P Pulse Ox O2 Delivery O2 Flow Rate FiO2 01/22/17 21:27 96/64 01/22/17 20:52 117 01/22/17 20:00 98.6 22 96 Room Air 01/20/17 07:33 21 01/17/17 11:42 2.0 Status: unchanged Disposition: Condition: Referrals: [facility],REFERR[facility] (PCP) JIN TRIVEDI M.D. Jan 23, 2017 01:50
[2017-01-24 19:08] LABS: MTB PROCESSING Concentration (.)
--- NOTE | 2017-01-25 12:32 | Discharge Summary ---
Discharge Summary Hospital Course Date of Admission Jan 11, 2017 at 12:34 Date of Discharge Jan 22, 2017 at 21:48 Admitting Diagnosis FLUID OVERLOAD HPI Arden Hall is a 66 year old male who was admitted on Jan 11, 2017 at 12:34 for Fluid Overload Hospital Course summary #[id number] Discharge Discharge Disposition Patient Discharge Diagnoses: Jaquan ([facility]),Ana SAMSON Jan 25, 2017 12:32
--- NOTE | 2017-01-26 01:28 | Discharge Summary 2 SIG ---
SUMMARY DATE OF ADMISSION: 01/11/2017 DATE OF EXPIRATION: 01/22/2017. REASON FOR ADMISSION: 66 years old male, presented to the emergency room with altered level of consciousness. The patient with end-stage renal disease, on hemodialysis. The patient missed dialysis for one week due to the lack of transportation to the clinic. was concerned that the patient had a wet harsh cough with difficulties in breathing. In addition, she was concerned that he was not as alert as usual. No reported fever, chills, wheezes, chest pain. Workup in the emergency room revealed no leukocytosis. Mild anemia, hemoglobin- 10.1, hematocrit -31. Severe uremia with BUN -145 and creatinine - 18.1. Ammonia - 80. Urinalysis with evidence of urinary tract infection. Chest x-ray with right lower lobe opacity, possible infiltrate. EKG showed peaked T-waves with right bundle-branch block and normal sinus rhythm, potassium - 7.3. The patient admitted for further management to the intensive care unit. ADMITTING DIAGNOSES: 1. Acute encephalopathy. 2. Acute hyperkalemia. 3. End-stage renal disease, on hemodialysis. 4. Uremia 5. Pneumonia. 6. Urinary tract infection. 7. Uremia. HOSPITAL STAY: The patient admitted. The patient started on empiric antibiotics. Infectious Disease specialist followed. Antibiotic regimen adjusted based on culture. Sputum showed E. coli. Blood cultures were negative, repeated twice. Urine culture showed E. coli. Supplemental oxygen and pulmonary toilet provided as needed. Follow up chest x-ray revealed decreased right lung base infiltrate with partial resolution. Leukocytosis kept rising. Echocardiogram was done to rule out vegetation and showed no evidence of vegetation. ECHO revealed preserved ejection fraction of 55%. CT of the abdomen and pelvis were done subsequently. CT of the abdomen and pelvis revealed multiple nodules / masses in the right lung base, many of them with the cavitation. Subsequently, CT of the chest was done, which revealed multiple nodules, some with the cavitation predominantly in the right lower lobe, but also in the right upper lobe and middle lobes. The findings were worrisome for infection such as tuberculosis. Other infectious etiologies or neoplasm were also possible. The patient was placed on the airborne isolation. Sputum AFB x3 -negative. Fungal serology was negative. Noted elevated tumor marker CEA - 9.3 and CA 19-9 -63.65. Gastrointestinal consult was requested. Stool OB was negative. The patient failed swallow evaluation and subsequently undergone esophagogastroduodenoscopy with G-tube placement on 01/14/2017. G-tube feeding started as per dietary recommendation. Hemoglobin and hematocrit were closely monitored with goal of hemoglobin above 7. Anemia workup revealed stable iron, likely anemia of chronic disease. Interventional Radiology Tech closely followed the patient. Renal parameters and electrolytes were closely monitored. Acute hyperkalemia, initially present, was treated and resolved. The patient was treated for acute hepatic encephalopathy with lactulose. Ammonia down to normal. Blood pressure was managed with calcium channel ana and hydralazine , and was stable. Seizure precautions were maintained. Depakote and Keppra were continued. The patient was working with physical and occupational therapists. Strict aspiration precautions were maintained. Wound care for the left heel stage IV decubitus, present on admission, provided as per wound care nurse recommendations. DVT prophylaxis provided. childcare worker was looking for placement. Leukocytosis kept rising . Rising leukocytosis presumed to be secondary to cavitary lung masses. On 01/22/2017 at 2130 hours, the patient was found unresponsive by nurse. No pulse, no respiration. Code Blue protocol was initiated. The patient received three rounds of epinephrine as well as the bicarbonate and calcium chloride, however, despite the best efforts, the Code Blue team was unable to revive the patient. There was never spontaneous return of pulses. The patient was pronounced at 2148 hours on 01/22/2017. Cause of : cardiopulmonary arrest. FINAL DIAGNOSES: 1. Cardiopulmonary arrest, 2. Possible sepsis, 3. Pneumonia/Escherichia coli. 4. Urinary tract infection/Escherichia coli. 5. Acute hepatic encephalopathy on chronic dementia. 6. Cavitary lung disease. 7. End-stage renal disease, on hemodialysis. 8. Hypertension. 9. Acute hyperkalemia, 10. Diabetes mellitus. 11. Dysphagia. 12. Status post esophagogastroduodenoscopy with G-tube placement on 01/14/2017. 13. Anemia of chronic disease. 14. Seizure disorder. 15. Left heel stage IV, present on admission. 16. History of cerebrovascular accident 17. Functional quadriplegia. Mirali Zarrabi, M.D. I have been assigned to dictate discharge summary on this account and I was not involved in the patient's management. Ana HarleyBlythedale Children'S HospitalWoo N.PRobbin DR: EVERETT JOB#: [id number] CC: JAMES
[2017-01-26 10:17] LABS: MTB DETECTION NAA Negative (Negative)
== END 2017-01-22 21:48 | disposition expired | DRG 425 ==
LOC: EDBD 10:18 → EMR 10:44 → 2W 12:34 → EDBEDREQ 12:34 → 4W 01-13 18:42
PROC: 5A1D60Z (ICD-10-PCS; 2017-01-12)
PROC: 0DH63UZ Insertion of Feeding Device into Stomach, Percutaneous Approach (ICD-10-PCS; principal; 2017-01-14 13:20)
DX: E87.5 Hyperkalemia (principal); K72.00 Acute and subacute hepatic failure without coma; J15.5 Pneumonia due to Escherichia coli; A41.9 Sepsis, unspecified organism; L89.624 Pressure ulcer of left heel, stage 4; N18.6 End stage renal disease; R13.10 Dysphagia, unspecified; R53.2 Functional quadriplegia; I12.0 Hypertensive chronic kidney disease with stage 5 chronic kidney disease or end stage renal disease; F03.90 Unspecified dementia, unspecified severity, without behavioral disturbance, psychotic disturbance, mood disturbance, and anxiety; N39.0 Urinary tract infection, site not specified; Z99.2 Dependence on renal dialysis; G40.909 Epilepsy, unspecified, not intractable, without status epilepticus; E11.22 Type 2 diabetes mellitus with diabetic chronic kidney disease; L89.512 Pressure ulcer of right ankle, stage 2; D63.1 Anemia in chronic kidney disease; Z86.73 Personal history of transient ischemic attack (TIA), and cerebral infarction without residual deficits; J98.4 Other disorders of lung
CPT/HCPCS: 36415; 71010; 71260; 74000; 74176; 80048; 80053; 80061; 80202; 81003; 82140; 82270; 82378; 82550; 82607; 82728; 82746; 82962; 82977; 83036; 83540; 83550; 83615; 83735; 83880; 84100; 84443; 84484; 84550; 85007; 85025; 85610; 85730; 86140; 86171; 86301; 86580; 86612; 86635; 86850; 86900; 86901; 86920; 87040; 87070; 87081; 87086; 87116; 87181; 87205; 87449; 87556; 92950; 93005; 93306; 94003; 94150; 94640; 94664; 94760; J0171